=== PATIENT | female | born 1975 | race Caucasian/White ===

== ENCOUNTER 2023-12-11 06:32 | Observation (INO) ==
--- NOTE | 2023-11-16 13:58 | PAT Medication Instructions ---
Medication Instructions Date of Service November 16, 2023 Home Medications Medication Instructions Recorded lancets 33 gauge (OneTouch Delica #100 ea 05/12/22 Plus Lancet) blood sugar diagnostic (OneTouch #50 ea 05/15/22 Verio test strips) OneTouch Verio Reflect Start #1 ea 05/18/22 (blood-glucose meter) semaglutide 2 mg/dose (8 mg/3 mL) 2 mg (0.75 mL) subcut Q7D #3 mL 05/14/23 subcutaneous pen injector blood-glucose sensor (FreeStyle #2 ea 06/08/23 Natalia 3 Sensor device) Wheeled Walker #1 ea 08/03/23 metformin 500 mg tablet 1,000 mg PO BID atorvastatin 10 mg tablet 10 mg PO QPM meloxicam 15 mg tablet 15 mg PO QAM cyclobenzaprine 5 mg tablet 5 mg PO TID PRN semaglutide 2 mg/dose (8 mg/3 mL) subcutaneous pen injector 2 mg (0.75 mL) subcut Q7D acetaminophen 500 mg tablet 500 mg PO Q6H PRN diphenhydramine 25 mg-acetaminophen 500 mg tablet (Acetaminophen PM) 1 tab PO HS PRN ibuprofen 200 mg tablet 800 mg PO Q6H PRN multivitamin 1 tab PO QAM omeprazole 20 mg capsule,delayed release 20 mg PO DAILY PRN STOP 7 days before surgery semaglutide 2 mg/dose (8 mg/3 mL) subcutaneous pen injector 2 mg (0.75 mL) subcut Q7D Continue as directed omeprazole 20 mg capsule,delayed release 20 mg PO DAILY PRN(if needed) ASK your surgeon for instructions meloxicam 15 mg tablet 15 mg PO QAM ibuprofen 200 mg tablet 800 mg PO Q6H PRN DO NOT take the morning of surgery metformin 500 mg tablet 1,000 mg PO BID multivitamin 1 tab PO QAM Take morning of surgery With a small sip of water, OTHERWISE NOTHING TO EAT OR DRINK AFTER MIDNIGHT: cyclobenzaprine 5 mg tablet 5 mg PO TID PRN(if needed) acetaminophen 500 mg tablet 500 mg PO Q6H PRN(if needed) Take evening before surgery metformin 500 mg tablet 1,000 mg PO BID atorvastatin 10 mg tablet 10 mg PO QPM cyclobenzaprine 5 mg tablet 5 mg PO TID PRN(if needed) acetaminophen 500 mg tablet 500 mg PO Q6H PRN(if needed) diphenhydramine 25 mg-acetaminophen 500 mg tablet (Acetaminophen PM) 1 tab PO HS PRN(if needed) Other Notes If you have any questions please call us at [phone] or [phone] or [phone] or [phone]
--- NOTE | 2023-11-26 09:38 | Anesthesiology Consultation ---
Date of Service November 26, 2023 Assessment & Plan (1) Encounter for pre-operative examination: - check BSG STAT am DOS. - anesthesia concerns/history: Patient has concerns with potential neuraxial anesthesia due to above listed anesthesia concerns and chronic back pain. I listened to her concerns and discussed options of neuraxial vs general anesthesia. She plans to have final discussion with anesthesiologist am DOS. Case discussed with Dr. Condon who advised nothing additional is needed, final anesthesia plan will be to patient and assigned anesthesiologist discussion am DOS. - semaglutide instructions: Patient informed at PAT visit to stop 7 days prior to surgery- voiced understanding. Patient advised to check with prescriber to see if alternative diabetic management changes recommended while holding semaglutide-if so, patient to call back to [facility] to update chart and discuss if any further preop medication instructions needed. - Outpatient joint assessment: Patient is currently scheduled for inpatient pathway. If re-evaluated and patient/surgeon requests outpatient pathway, patient is not ideal candidate for outpatient joint program from anesthesia standpoint. Chart Review Chart Review: Acceptable Risk for Surgery and Patient seen in Pre Admission Testing Teaching & Discussion Pre-Anesthesia Teaching/Discussion Notes: Instructed NPO after midnight before surgery, except medications with 15 cc of water. Medication instructions provided according to the PAT guidelines. History Surgery Operation Date: 12/11/23 07:00 Proposed Procedures p Left Total Hip Arthroplasty - Branden Dial MD Height/Weight Height: 5 ft 9 in Weight: 93.6 kg Allergies Allergy/AdvReac Type Severity Reaction Status Date / Time seasonal Allergy Mild Nasal Uncoded 11/15/23 09:03 Discharge Medications Home Medications Medication Instructions Recorded Confirmed Last Taken metformin 500 mg tablet 1,000 mg PO BID 05/01/22 11/15/23 Unknown atorvastatin 10 mg tablet 10 mg PO QPM 05/10/22 11/15/23 Unknown meloxicam 15 mg tablet 15 mg PO QAM 05/10/22 11/15/23 Unknown cyclobenzaprine 5 mg tablet 5 mg PO TID PRN prn 05/12/22 11/15/23 Unknown lancets 33 gauge ([employer]tek NetworksTouch Delica #100 ea 05/12/22 09/21/23 Unknown Plus Lancet) blood sugar diagnostic ([employer]Touch #50 ea 05/15/22 09/21/23 Unknown Verio test strips) [employer] Verio Reflect Start #1 ea 05/18/22 09/21/23 Unknown (blood-glucose meter) semaglutide 2 mg/dose (8 mg/3 mL) 2 mg (0.75 mL) subcut Q7D #3 mL 05/14/23 11/15/23 Unknown subcutaneous pen injector blood-glucose sensor (FreeStyle #2 ea 06/08/23 09/21/23 Unknown Natalia 3 Sensor device) Wheeled Walker #1 ea 08/03/23 09/21/23 Unknown acetaminophen 500 mg tablet 500 mg PO Q6H PRN prn 11/15/23 11/15/23 Unknown diphenhydramine 25 1 tab PO HS PRN prn 11/15/23 11/15/23 Unknown mg-acetaminophen 500 mg tablet (Acetaminophen PM) ibuprofen 200 mg tablet 800 mg PO Q6H PRN prn 11/15/23 11/15/23 Unknown multivitamin 1 tab PO QAM 11/15/23 11/15/23 Unknown omeprazole 20 mg capsule,delayed 20 mg PO DAILY PRN prn 11/15/23 11/15/23 Unknown release Past Medical History Medical History (Updated 11/26/23 @ 13:50 by Era Arreola PA-C) Chronic low back pain stable per pt Diabetes mellitus, type II NIDDM GERD (gastroesophageal reflux disease) intermittent, stable per pt-omeprazole prn History of anesthesia reaction difficulty waking up after hand surgery in and sats low at that time; patient states that was told first attempt was not successful and medication entered body, second attempt was only beneficial on one side-O2 sats dropped needing to be placed in recovery unit; she is unsure if supplemental oxygen was administered Mixed hyperlipidemia Obesity (BMI 30.0-34.9) Unilateral primary osteoarthritis, left hip White coat syndrome with high blood pressure but without hypertension Patient denies h/o stroke, seizures, heart attack, heart failure, blood clots/DVTs or blood transfusions. Exercise / Class Metabolic Activity II 4-5 Yardwork/Stairs/Walk up hill (denies chest discomfort or shortness of breath with one flight of stairs) Past Family History Family History Father Melanoma Cirrhosis with alcoholism Mother Asthma Hypertension COPD (chronic obstructive pulmonary disease) Grandmother (Maternal) Breast cancer Alcoholism Grandmother (Paternal) Arthritis Grandfather (Paternal) Cancer Family/Other History of heart attack Past Surgical History Surgical History H/O section (~1999) History of endometrial ablation (~07/03/17) History of tubal ligation Past Anesthesia History No Family Hx of Anesthesia Complications and Other (see above) History of PONV No Hx of PONV and No Hx of Motion Sickness Social History Smoking Status: Never smoker Do You Dip or Chew Tobacco: No Hx Alcohol Use: Yes alcohol intake frequency: holidays/special occasions only Hx Substance Use: No substance use type: does not use Review of Systems Patient denies chest pain, shortness of breath, dyspnea on exertion, snoring, witnessed apneas, fever, chills, cough, wheezing, or palpitations. Physical Exam Vital Signs Vitals BP 137/92 P 86 TEMP 97.9 SP02 95% on RA RESP 18 Physical Patient resting comfortably in chair in no acute distress, alert and oriented, responding appropriately throughout visit Full cervical extension range of motion without pain TMD 3.5 finger breadths Mallampati Score 2 Dentition: left lower back crown, denies chipped or loose teeth, caps, implants or bridges Lungs: normal respiratory effort. Good air movement, clear throughout to auscultation, no adventitious breath sounds Cardiac: regular rate and rhythm, no murmurs noted Carotid arteries: negative bruit bilat Lab Results Anesthesia Preop Results Results Anesthesia Widget: WBC 6.85 K/ul (4.8-10.8) 11/26/23 Hgb 14.9 g/dl (12.0-16.0) 11/26/23 Hct 42.4 % (37.0-47.0) 11/26/23 Plt 209 K/uL (130-400) 11/26/23 Na 137 mmol/L (136-145) 11/26/23 K 4.1 mmol/L (3.5-5.1) 11/26/23 Cl 102 mmol/L (98-107) 11/26/23 CO2 27 mmol/L (21-32) 11/26/23 BUN 20 mg/dl (6-23) 11/26/23 Creat 0.57 mg/dl (0.6-1.2) L 11/26/23 Glucose Level 179 mg/dl (70-99(Fasting)) H 11/26/23 PT 10.5 Seconds (9.0-12.0) 11/26/23 PTT 28 Seconds (21-31) 11/26/23 INR 1.0 (0.9-1.1) 11/26/23 TSH 1.32 uIU/mL (0.30-4.50) 10/04/23 HA1c 7.4 % (4.5-5.6) H 11/26/23 Blood Type O Positive 11/26/23 Antibody Screen NEGATIVE 11/26/23 Testing Laboratory Results 10/04/23 A1c: 6.9% Electrocardiogram Date: 11/26/23 NSR, rate 82 bpm Poor R wave progression, consider anterior LA vs lead placement vs LVH Chest X-Ray Date: 11/26/23 No acute chest disease.
--- NOTE | 2023-11-28 13:39 | History & Physical Report ---
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 She has failed conservative measures. She is having trouble doing activities that she would like and would like to have her left hip fixed. Plan: We talked about it treatment options and she like proceed with a total hip replacement. Will proceed with hip replacement. There is cements this procedure explained in include but not limited to a DVT PE infection neurological injury vascular bleeding palm pain limb range of motion this is fairly her symptoms incomplete relief of symptoms need for further in the future excetra. We did discuss that her young age this might need to be revised in the future. She is aware that. Alli will keep her in the hospital overnight. Will likely use a Prevena VAC dressing. She will follow-up with us 2 weeks postop. (2) Diabetes mellitus type 2, controlled, without complications: (3) Obesity, diabetes, and hypertension syndrome: (4) Obesity (BMI 30.0-34.9): (5) Mixed hyperlipidemia: History of Present Illness Chief Complaint: . Left hip pain. Primary Care Provider: Nelson Cosme . 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 She has a 3+ year history of increasing left hip pain discomfort worsening over time. She was initially seen at [facility] several years ago and told she had arthritis in her back but not too bad. Over the past several years she developed increased pain discomfort. She is having trouble getting around and doing her shifts at the ER as well as her pain. She takes anti-inflammatories without much relief. She limps more as the day goes on. Scribes groin and thigh pain. She is ready to have her hip fixed. Of note, it does sound like she has some degree of a hip issue as a child but is not really clear on this. Has never any clear diagnosis. Allergies Allergy/AdvReac Type Severity Reaction Status Date / Time seasonal Allergy Mild Nasal Uncoded 11/15/23 09:03 Discharge Home Medications Medication Instructions Recorded Confirmed Type metformin 500 mg tablet 1,000 mg PO BID 05/01/22 11/15/23 History atorvastatin 10 mg tablet 10 mg PO QPM 05/10/22 11/15/23 History meloxicam 15 mg tablet 15 mg PO QAM 05/10/22 11/15/23 History cyclobenzaprine 5 mg tablet 5 mg PO TID PRN prn 05/12/22 11/15/23 History lancets 33 gauge (OneTouch Delica #100 ea 05/12/22 09/21/23 Rx Plus Lancet) blood sugar diagnostic (OneTouch #50 ea 05/15/22 09/21/23 Rx Verio test strips) OneTouch Verio Reflect Start #1 ea 05/18/22 09/21/23 Rx (blood-glucose meter) semaglutide 2 mg/dose (8 mg/3 mL) 2 mg (0.75 mL) subcut Q7D #3 mL 05/14/23 11/15/23 Rx subcutaneous pen injector blood-glucose sensor (FreeStyle #2 ea 06/08/23 09/21/23 Rx Natalia 3 Sensor device) Wheeled Walker #1 ea 08/03/23 09/21/23 Rx acetaminophen 500 mg tablet 500 mg PO Q6H PRN prn 11/15/23 11/15/23 History diphenhydramine 25 1 tab PO HS PRN prn 11/15/23 11/15/23 History mg-acetaminophen 500 mg tablet (Acetaminophen PM) ibuprofen 200 mg tablet 800 mg PO Q6H PRN prn 11/15/23 11/15/23 History multivitamin 1 tab PO QAM 11/15/23 11/15/23 History omeprazole 20 mg capsule,delayed 20 mg PO DAILY PRN prn 11/15/23 11/15/23 History release Past Med/Surg History Problem List Encounter for pre-operative examination Arthritis of left hip Diabetes mellitus type 2, controlled, without complications Obesity, diabetes, and hypertension syndrome Obesity (BMI 30.0-34.9) Mixed hyperlipidemia Medical History GERD (gastroesophageal reflux disease) intermittent, stable per pt-omeprazole prn White coat syndrome with high blood pressure but without hypertension Chronic low back pain stable per pt Obesity (BMI 30.0-34.9) History of anesthesia reaction difficulty waking up after hand surgery in and sats low at that time; patient states that was told first attempt was not successful and medication entered body, second attempt was only beneficial on one side-O2 sats dropped needing to be placed in recovery unit; she is unsure if supplemental oxygen was administered Mixed hyperlipidemia Diabetes mellitus, type II NIDDM Unilateral primary osteoarthritis, left hip Surgical History History of tubal ligation H/O section (~1999) History of endometrial ablation (~07/03/17) Family History Father Melanoma Cirrhosis with alcoholism Mother Asthma Hypertension COPD (chronic obstructive pulmonary disease) Grandmother (Maternal) Breast cancer Alcoholism Grandmother (Paternal) Arthritis Grandfather (Paternal) Cancer Family/Other History of heart attack Social History Smoking Status: Never smoker Second Hand Exposure: Yes (childhood); Do You Dip or Chew Tobacco: No; Hx Alcohol Use: Yes Alcohol Intake Frequency Comment: Rarely Hx Substance Use: No Preferred Language: Yakut Throat Cutter Required: No Beliefs That Will Affect Care: None Current Living Situation: Spouse Feels Safe at Home: Yes Assistive Devices: Contacts and Glasses Review of Systems All systems reviewed & are unremarkable except as noted in HPI & below. Physical Exam . Physical examination reveals a pleasant healthy middle-aged female. Looks in pretty good health. Examination of left hip reveal patient walks with slightly antalgic gait. She limps on the left side. The left leg actually seems a bit longer than the right on exam. She has stiffness and pain with hip motion. Internal rotation to neutral at best. Negative straight leg raise. She is neurologically intact. Constitutional WD/WN, vitals as above Neck trachea midline, no thyromegaly Respiratory normal respiratory effort, lungs clear to auscultation Cardiovascular RRR, no murmur, no edema Gastrointestinal (Abdomen) normal bowel sounds, soft, nontender, no hepatosplenomegaly Results & Data Results & Data Laboratory Results . Diagnostic Findings . X-rays of the left hip were reviewed. We have a low would be pelvis AP and lateral hip which reveal advanced hip arthritis. She had complete loss of her superior joint space. She is got cystic changes on both sides of the joint. Got osteophytes around the femoral head and acetabulum. 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
[~2023-12-11 06:32] MED LIST: BUPIVACAINE 0.5 % 5 MG/1 ML PF 10ML VIAL ONE
--- NOTE | 2023-12-11 06:50 | History & Physical Bridge Note ---
Date of Service December 11, 2023 History & Physical Bridge Note I have examined the patient, reviewed the History & Physical and in the interval since the performance of the History & Physical I have noted the following changes of clinical significance: no changes noted
[2023-12-11] MEDS: ACETAMINOPHEN 500 MG TAB PO SCH ×2 (06:56→13:52)
[2023-12-11] MEDS: METOCLOPRAMIDE HCL 10 MG TABLET PO SCH (06:56)
[2023-12-11] MEDS: FAMOTIDINE 20 MG TAB PO SCH (06:56)
[2023-12-11] MEDS: LR 60ML/HR IV SCH (06:57)
[2023-12-11] MEDS: Scopolamine 1 MG TDSY TD SCH (06:57)
[2023-12-11] MEDS: CeleBREX 200 MG CAP PO SCH (06:57)
[2023-12-11] MEDS: LR 500ML BOLUS, THEN 15ML/HR IV SCH (07:36)
[2023-12-11] MEDS ORDERED: ONDANSETRON INJ 2 MG/ML 2 ML VIAL IV PRN ×2 (07:57→11:48)
[2023-12-11] MEDS ORDERED: ePHEDrine sulfate 50 MG/ML AMP IV PRN (07:57)
[2023-12-11] MEDS ORDERED: ATROPINE SULFATE 0.1 MG/ML 10ML SYR IV PRN (07:57)
[2023-12-11] MEDS ORDERED: fentaNYL citrate PF 100 MCG/2 ML VIAL IV PRN (07:57)
[2023-12-11] MEDS ORDERED: PROMETHAZINE HCL 6.25 MG in SODIUM CHLORIDE 0.9% 50 ML IV PRN (07:57)
[2023-12-11] MEDS ORDERED: MIDAZOLAM HCL 1 MG/ML 2ML VIAL ONE (08:00)
[2023-12-11] MEDS ORDERED: fentaNYL citrate PF 100 MCG/2 ML VIAL ONE (08:01)
[2023-12-11] MEDS: TRANEXAMIC ACID 1,000 MG **IV Pre-op IV SCH (08:17)
[2023-12-11] MEDS: ceFAZolin 2000MG 2,000 MG/15 ML SYR IV SCH ×2 (08:42→17:23)
[2023-12-11] MEDS: BUPIVACAINE/EPINEPHRINE 0.5% MPF 1:200,000 30 ML VIAL ONE (09:10)
[2023-12-11] MEDS ORDERED: PROPOFOL IV EMULSION 10 MG/ML 20 ML VIAL IV ONE (09:52)
[2023-12-11] MEDS ORDERED: ONDANSETRON INJ 2 MG/ML 2 ML VIAL ONE (09:52)
--- NOTE | 2023-12-11 10:25 | Operative Report ---
PG Post Operative Report Pre & Post Diagnosis Operation Date: 12/11/23 08:50 Pre-Op Diagnosis: DJD Hip Left Post-Op Diagnosis: DJD Hip Left I identified the patient and participated in the time-out.: Yes Procedure Operation Date: 12/11/23 08:50 Actual Procedures p Left Total Hip Arthroplasty(Left) - Branden Dial MD Surgeon Branden Dial MD Operations Officer Afloat Adolfo Andujar PA-C Estimated Blood Loss 100 Findings Consistent with Post-Op Diagnosis Operative findings advanced left hip DJD. Extensive grade 4 [id number] disease of the femoral head and acetabulum. She did have a bit of a dysplastic acetabulum. Large osteophyte around the femoral head. Moderate-sized joint effusion. Specimens Left femoral neck sent for pathology. Drains None Anesthesia Type Spinal MAC Complications none Disposition Accompanied Patient To Recovery: No Indications The patient is a 48-year-old female whose had a several year history of increasing left hip pain discomfort described to gotten worse over time. She failed all conservative measures. X-rays show advanced left hip arthritis. She elects proceed with surgical management. Description of Procedure Operative implants consist of: 1. Biomet G7 size 52 mm acetabular shell. 2. 6.5 cancellous acetabular screws 135 mm length by 20 mm length. 3. [place]wood: Millimeter. 4. Highly cross-linked polyethylene liner with a 52 mm outer diameter 36 mm inner diameter. 5. DePuy Corail size 9 KLA femoral stem. 6. +5/36 mm ceramic articular bone. The patient was taken the operating, identified, placed on the operating supine position. All contractors were appropriately padded. IV antibiotics provided by anesthesia team. A spinal anesthetic was implemented holding area. A Perry catheter was placed in sterile fashion. The patient was then placed in the right lateral decubitus position. Neck flexion was placed. This over to positioner was used for positioning. Left hip and leg were then prepped and draped in usual sterile fashion. A posterolateral approach to the left hip was then performed to a curvilinear incision centered over the greater trochanter. Sharp dissection Through subcutaneous tissue down to the IT band gluteal fascia. The IT band gluteal fascia incised longitudinally in line with skin incision. The underlying greater bursa was excised. The piriformis and external rotators along with the posterior joint capsule were then released from the posterior aspect hip as a single layer. Great care was taken throughout the sciatic nerve at all times. Of note, the posterior capsule was extremely thickened. The hip was internally rotated and dislocated. A femoral neck osteotomy cut was made with Final Cut about 7 mm above the lesser trochanter. Femoral head was removed and sent for pathology. The femur was retracted anteriorly. Attention drawn the acetabulum. The acetabular labrum was excised. The pulmonary fat was excised. Sequential reaming the acetabulum then performed with a size 43 and progressing up to 51. I reamed with a 52 reamer and then placed a 52 mm Biomet G7 acetabular shell in about 4 degree lateral 20 degrees of anteversion. It was fixed with two 6.5 cancellous acetabular screws. Trial liner was placed. Attention drawn the femur. The proximal femur was entered with a OptionEase cutter followed by canal finder. I then broached between a size 8 and progressed to a 9. Excellent candidate and 9. I did not detect a 5010 down to the trial of the hip and the +5 articular balls provide portability. Leg lengths appeared equal. The hip was fully stable. Soft tissue tension appeared appropriate. Electroplating explained. All trial implants were removed. An apex hole transition assistant was placed. Highly c linically polyethylene liner was placed. The size 9 KLA femoral stem was impacted in position. +5/36 mm ceramic articular ball was placed. Hip was located once again found to be stable. We elected to proceed with closing. Wound was irrigated copious pulsatile lavage. I did inject into the 60 cc Marcaine with epinephrine. Posterior capsule and external rotators number. The drill was in the posterior trochanter with #2 Tycron suture. The IT band and gluteal fascia then closed with 1 PDS suture running back to subcutaneous tissue then closed with 2-0 Dexon suture in a buried interrupted fashion the skin was closed skin alexys. Leg was then cleaned and dried and sterile dressing with Xeroform, 4 fours, ABD pad, foam tape was applied. Patient transferred to the recovery in stable condition. Patient tolerated procedure well and there were no complications. Adolfo Andujar, my physician supply chain assistant, was present for the entire procedure. His assistance was essential and required for appropriate patient positioning, prepping and draping, surgical exposure, performing the technical details of the operation, placement the implants, closure of the wound, and placement of the sterile bandage. I attest to the content of the Intraoperative Record and any orders documented therein. Any exceptions are noted below.
[2023-12-11] MEDS ORDERED: MAGNESIUM HYDROXIDE SUSP 30 ML UDC PO PRN (11:48)
[2023-12-11] MEDS ORDERED: GLUCAGON FOR INJ 1 MG VIAL SQ PRN (11:48)
[2023-12-11] MEDS ORDERED: GLUCOSE 40% GEL 15 GM TUBE PO PRN (11:48)
[2023-12-11] MEDS ORDERED: CARBOHYDRATES FOR HYPOGLYCEMIA PO PRN (11:48)
[2023-12-11] MEDS ORDERED: HYDROmorphone INJ 0.5 MG/0.5 ML SYR IV PRN (11:48)
[2023-12-11] MEDS ORDERED: bisacodyL 10 MG SUPP PR PRN (11:48)
[2023-12-11] MEDS ORDERED: PHARMACY GLYCEMIC MGMT CONSULT PRN (11:48)
[2023-12-11] MEDS ORDERED: GLUCOSE 10 TAB/TUBE PO PRN (11:48)
[2023-12-11] MEDS ORDERED: NALOXONE HCL 0.4 MG/1 ML VIAL/CARP IV PRN (11:48)
[2023-12-11] MEDS ORDERED: ALUMINUM/MAGNESIUM SUSP 30 ML UDC PO PRN (11:48)
[2023-12-11] MEDS ORDERED: diphenhydrAMINE Capsule 25 MG CAP PO PRN (11:48)
[2023-12-11] MEDS ORDERED: DEXTROSE 50% 50 ML SYRINGE IV PRN (11:48)
[2023-12-11] MEDS ORDERED: METOCLOPRAMIDE HCL INJ 5 MG/ML 2 ML VIAL IV PRN (11:48)
[2023-12-11] MEDS ORDERED: SENNA 8.6 MG TAB PO PRN (11:48)
[2023-12-11] MEDS ORDERED: PANTOprazole 40 MG TAB PO PRN (11:53)
[2023-12-11] MEDS: SODIUM CHLORIDE 0.9% 1,000 ML IV SCH (12:04)
[2023-12-11] MEDS: KETOROLAC 30 MG/ML VIAL IV SCH (12:12)
--- NOTE | 2023-12-11 12:29 | Pharmacy Report ---
Pharmacy Glycemic Short Note 2 - Date of Service December 11, 2023 - Glycemic Short BSG Results (Last 24 hours): 12/11/23 12/11/23 12/11/23 07:01 10:12 12:12 POC Glucose 173 H 208 H 160 H OUTPATIENT ANTIDIABETIC REGIMEN: * metformin 1 gm bid ASSESSMENT: * 48 year old female s/p procedure, POD 0 - pharmacy consulted for glycemic management. Postop BSG 160 mg/dL - will trial weight based stress of 2 dosing for novolog. No steroids given preoperatively, however steroids ordered for tomorrow AM. May need to consider small dose of basal tomorrow with steroids. PLAN FOR INPATIENT GLYCEMIC CONTROL: * Hold outpatient oral diabetes medications * Basal insulin * Lantus - hold * Bolus insulin * NovoLog per scale ACHS or Q6hrs while NPO * Goal Range: Low 110 mg/dL - High 140 mg/dL * Correction Factor: 25 mg/dL/unit * Nutritional / Prandial insulin per carb ratio of 1 unit per 8 grams CHO consumed
[2023-12-11] MEDS: INSULIN ASPART PER UNIT CHARGE SC SCH (13:02)
--- NOTE | 2023-12-11 13:42 | Anesthesiology Progress Note ---
Date of Service December 11, 2023 Anesthesia Post Procedure Vital Signs Vital Signs: Temp Pulse Pulse Resp BP BP Pulse Ox 12/11/23 13:00 36.0 C L 81 16 159/100 H 98 12/11/23 12:15 36.3 C L 73 15 149/98 H 98 12/11/23 11:52 36.4 C L 80 16 160/90 H 100 12/11/23 11:35 75 16 134/80 98 12/11/23 11:20 70 16 138/80 97 12/11/23 11:05 76 17 130/76 97 12/11/23 10:50 74 16 128/78 98 12/11/23 10:40 36.4 C L 78 14 128/78 98 12/11/23 10:30 80 22 115/69 100 12/11/23 10:20 83 19 119/68 100 12/11/23 10:11 36.5 C 88 17 104/60 100 12/11/23 06:54 36.6 C 92 H 20 157/97 H 98 O2 Del Method O2 Flow Rate 12/11/23 13:00 Room Air 12/11/23 12:15 Room Air 12/11/23 11:52 Room Air 12/11/23 11:35 Room Air 12/11/23 11:20 Room Air 12/11/23 11:05 Room Air 12/11/23 10:50 Room Air 12/11/23 10:40 Room Air 12/11/23 10:30 Oxymask 5 12/11/23 10:20 Oxymask 5 12/11/23 10:11 Oxymask 5 12/11/23 06:54 Room Air Transfer of Care Handoff Completed per policy Notes Mental Status: alert / awake / arousable and participated in evaluation Patient Amnestic to Procedure: Yes Nausea / Vomiting: adequately controlled Pain: adequately controlled Airway Patency, RR, SpO2: stable & adequate BP & HR: stable & adequate Hydration State: stable & adequate Neuraxial Anesthesia: was administered and sensory block is resolving Anesthetic Complications: no major complications apparent and Pt Satisfied with anesthetic care
[2023-12-11] MEDS ORDERED: ACETAMINOPHEN 500 MG TAB PO SCH (14:00)
[2023-12-11] MEDS: Scopolamine CHECK PATCH PLACEMENT SCH (17:17)
[2023-12-11] MEDS: TRANEXAMIC ACID / 0.7% NACL 1,000 MG/100 ML BAG IV SCH (17:28)
[2023-12-11] MEDS: ASCORBIC ACID 500 MG TAB PO SCH (18:24)
[2023-12-11] MEDS: SENNA 8.6 MG TAB PO SCH (20:20)
[2023-12-11] MEDS: DOCUSATE SODIUM 100 MG CAP PO SCH (20:20)
[2023-12-11] MEDS: ATORVASTATIN 10 MG TAB PO SCH (20:21)
[2023-12-11] MEDS: ASPIRIN 81 MG ECTAB PO SCH (20:21)
[2023-12-11] MEDS: traMADol HCL 50 MG TABLET PO PRN (22:32)
[2023-12-11] MEDS: CYCLOBENZAPRINE HCL 5 MG TAB PO PRN (22:33)
[2023-12-12 06:45] LABS: Basophils # (auto) 0.03 K/uL (0.00-0.20); Basophils % (auto) 0.4 %; Eosinophils # (auto) 0.08 K/uL (0.00-0.50); Hematocrit (blood only) 27.8 % (37.0-47.0); Hemoglobin 9.5 g/dl (12.0-16.0); Immature Granulocytes # (auto) 0.02 K/uL (0.01-0.20); Immature Granulocytes % (auto) 0.2 %; Lymphocytes # (auto) 3.14 K/uL (1.20-3.40); Lymphocytes % (auto) 39.2 %; Mean Corpuscular Hemoglobin 28.6 pg (25.0-34.0); Mean Corpuscular Hgb Conc 34.2 g/dL (32.0-36.0); Mean Corpuscular Volume 83.7 fL (80.0-100.0); Mean Platelet Volume 10.8 fL (9.4-12.4); Monocytes # (auto) 0.59 K/uL (0.11-0.59); Monocytes % (auto) 7.4 %; Neutrophils # (auto) 4.16 K/uL (1.40-6.50); Neutrophils % (auto) 51.8 %; Platelet Count 167 K/uL (130-400); RDW Coefficient of Variation 12.5 % (11.5-14.5); RDW Standard Deviation 38.3 fL (36.4-46.3); Red Blood Count 3.32 M/uL (4.20-5.40); White Blood Count 8.02 K/ul (4.8-10.8)
[2023-12-12 07:08] LABS: BUN Creatinine Ratio 30.2 (10-20); Calcium 7.9 mg/dl (8.6-10.3); Creatinine Clr Calc Pharmacy 161.2 ml/min; Est GFR (Non-African American) 113.9 ml/min; Potassium 3.7 mmol/L (3.5-5.1)
[2023-12-12 07:57] VITALS: BP 118/76; PULSE 86; RESP 19; TEMP 98.4; O2SAT 96
[2023-12-12] MEDS: dexAMETHasone 10 MG in SYRINGE 0 ML IV SCH (07:59)
[2023-12-12] MEDS: MULTIVITAMIN TAB PO SCH (08:12)
[2023-12-12] MEDS ORDERED: NON-FORMULARY MEDICATION (Multivitamin Tablet) PO SCH (09:00)
--- NOTE | 2023-12-12 11:56 | XRay Report ---
XR hip 1V LT w pelvis CLINICAL HISTORY: IN PACU - Post Surgical TECHNIQUE: 1 view of the left hip and single frontal view of the pelvis were obtained. Comparison: Comparison is made to left hip radiograph 08/03/2023 FINDINGS: Patient is status post total hip arthroplasty with expected postsurgical changes including soft tissu e swelling and subcutaneous emphysema. IMPRESSION: Expected postoperative appearance status post placement of total hip arthroplasty. ACT 112: Negative or not required by law. Electronically signed by: Colin Sparks M.D. 12/12/2023 11:55 AM
[2023-12-12] MEDS ORDERED: NovoLIN-N (NPH) PER UNIT CHARGE SQ ONE (12:00)
--- NOTE | 2023-12-12 12:06 | Orthopedic Progress Note ---
Date of Service December 12, 2023 Assessment & Plan (1) Status post left hip replacement: Plan: 48-year-old female postop day 1 from left hip replacement doing well. Pain is controlled. Hips located. She is neurologically intact. Therapy went well. Plan: 1. PT/OT. Weight-bear as tolerated. Left total hip protocol. 2. DVT prophylaxis;, SCDs, aspirin twice daily. 3. Pain control doing okay with current pain regimen. 4 disposition plan is to discharge to home with home health today. Admission and Anticipated Discharge Date Admission Date: December 11, 2023 Subjective 48-year-old female postop day 1 from a left total hip she is doing well. Therapy went well. Pain is controlled. No chest pain or shortness of breath. Not feeling dizzy or lightheaded. She is hoping to go home today. Physical Exam Physical Exam: Physical exam shows a pleasant middle-aged female. Sitting up in the bedside chair looks comfortable. Examination left hip reveals dressing clean dry and intact. Leg lengths are equal. She can dorsiflex the foot appropriately. She is neurologically intact. Respiratory: normal respiratory effort, lungs clear to auscultation Cardiovascular: RRR, no murmur, no edema Gastrointestinal (Abdomen): normal bowel sounds, soft, nontender, no hepatosplenomegaly Results & Data Vital Signs (Past 12 Hours) Vital Signs Temp Pulse Pulse Resp BP BP Pulse Ox 12/12/23 09:12 12/12/23 07:55 36.9 C 86 19 118/76 96 12/12/23 03:00 36.4 C L 84 18 123/67 97 O2 Del Method 12/12/23 09:12 Room Air 12/12/23 07:55 Room Air 12/12/23 03:00 Room Air Laboratory Results Hemoglobin is 9.5. Hematocrit is 27.8. Electrolytes are stable.
--- NOTE | 2023-12-12 12:11 | Pharmacy Report ---
Pharmacy Glycemic Short Note 2 - Date of Service December 12, 2023 - Glycemic Short BSG Results (Last 24 hours): 12/11/23 12/11/23 12/11/23 12:12 16:35 20:48 Glucose POC Glucose 160 H 136 H 274 H 12/11/23 12/12/23 12/12/23 23:23 06:14 07:36 Glucose 146 H POC Glucose 234 H 165 H 12/12/23 11:29 Glucose POC Glucose 233 H OUTPATIENT ANTIDIABETIC REGIMEN: * metformin 1 gm bid ASSESSMENT: 12/11 * Patient did not receive any insulin yesterday, outside food brought in therefore BSGs elevated last evening. Patient refused insulin at that time. Steroids ordered for this AM (dexamethasone x 1 dose). BSGs trending up at lunch time >200 - reasonable to give NPH 0.2 units/kg x 1 dose to cover steroid effects. Novolog also tightened at this time 12/10 * 48 year old female s/p procedure, POD 0 - pharmacy consulted for glycemic management. Postop BSG 160 mg/dL - will trial weight based stress of 2 dosing for novolog. No steroids given preoperatively, however steroids ordered for tomorrow AM. May need to consider small dose of basal tomorrow with steroids. PLAN FOR INPATIENT GLYCEMIC CONTROL: * Hold outpatient oral diabetes medications * Basal insulin * NPH 15 units x 1 (to cover IV dex) * Bolus insulin * NovoLog per scale ACHS or Q6hrs while NPO * Goal Range: Low 110 mg/dL - High 140 mg/dL * Correction Factor: 20 mg/dL/unit * Nutritional / Prandial insulin per carb ratio of 1 unit per 6 grams CHO consumed
--- NOTE | 2023-12-14 06:28 | Discharge Summary ---
Date of Service December 14, 2023 Discharge Data Procedures Performed Operation Date: 12/11/23 08:50 Actual Procedures p Left Total Hip Arthroplasty(Left) - Branden Dial MD Hospital Course (1) Status post left hip replacement: This is a 48 year old patient admitted on 12/11/23 and underwent total hip arthroplasty. She tolerated the procedure well and there were no complications. Transferred to the PACU post op and later to the orthopedic floor for further care. She was given ancef for antibiotic prophylaxis. She was also given BELL stockings, SCDs, and aspirin for DVT prophylaxis. Hemoglobin, hematocrit, and vital signs were monitored during her hospital stay and remained stable. Did not require any blood transfusions. There were no complications during her hospital stay. By post op day #1 the patient was tolerating a diabetic diet, pain was reasonably controlled with oral pain medicine, and she was participating in physical therapy. On post op day #1 the patient was discharged home and set up with home health care. She was given printed discharge instructions including prescriptions for extra strength tylenol, aspirin, ketorolac, zofran, senokot, and tramadol. Continue hip precautions. Continue physical therapy, weight bearing as tolerated. Continue BELL stockings. Follow up approximately 2 weeks post op or sooner if there are problems or concerns. Coding Level of Care Code None Diagnoses Status post left hip replacement Z96.642
== END 2023-12-12 13:37 | disposition home health service (06) ==
LOC: PACUINP 06:32 → ASU 06:32 → 3E 11:41
DX: Z79.82 Long term (current) use of aspirin; Z77.22 Contact with and (suspected) exposure to environmental tobacco smoke (acute) (chronic); M25.452 Effusion, left hip; I15.2 Hypertension secondary to endocrine disorders; Z91.09 Other allergy status, other than to drugs and biological substances; M16.12 Unilateral primary osteoarthritis, left hip; E11.59 Type 2 diabetes mellitus with other circulatory complications; Z79.1 Long term (current) use of non-steroidal anti-inflammatories (NSAID); Z79.85 Long-term (current) use of injectable non-insulin antidiabetic drugs; E78.2 Mixed hyperlipidemia; Z79.899 Other long term (current) drug therapy; K21.9 Gastro-esophageal reflux disease without esophagitis; Z79.84 Long term (current) use of oral hypoglycemic drugs; E66.9 Obesity, unspecified; Z68.30 Body mass index [BMI] 30.0-30.9, adult; M25.752 Osteophyte, left hip; E11.69 Type 2 diabetes mellitus with other specified complication

== ENCOUNTER 2024-01-22 19:21 | Inpatient (IN) ==
[2024-01-22] MEDS: ONDANSETRON INJ 2 MG/ML 2 ML VIAL IV STA ×2 (19:41→22:10)
[2024-01-22] MEDS: KETOROLAC TROMETHAMINE 15 MG/ML VIAL ONE (19:41)
[2024-01-22] MEDS: ONDANSETRON INJ 2 MG/ML 2 ML VIAL ONE (19:41)
[2024-01-22] MEDS: KETOROLAC TROMETHAMINE 15 MG/ML VIAL IV ONE (19:41)
[2024-01-22 20:08] LABS: Basophils % (auto) 0.6 %; Eosinophils # (auto) 0.33 K/uL (0.00-0.50); Eosinophils % (auto) 1.9 %; Hematocrit (blood only) 43.3 % (37.0-47.0); Hemoglobin 13.8 g/dl (12.0-16.0); Immature Granulocytes # (auto) 0.07 K/uL (0.01-0.20); Immature Granulocytes % (auto) 0.4 %; Lymphocytes % (auto) 24.2 %; Mean Corpuscular Hemoglobin 27.8 pg (25.0-34.0); Mean Corpuscular Hgb Conc 31.9 g/dL (32.0-36.0); Mean Corpuscular Volume 87.3 fL (80.0-100.0); Mean Platelet Volume 10.2 fL (9.4-12.4); Monocytes # (auto) 1.06 K/uL (0.11-0.59); Monocytes % (auto) 6.1 %; Neutrophils # (auto) 11.61 K/uL (1.40-6.50); Neutrophils % (auto) 66.8 %; Platelet Count 266 K/uL (130-400); RDW Standard Deviation 44.9 fL (36.4-46.3); Red Blood Count 4.96 M/uL (4.20-5.40); White Blood Count 17.37 K/ul (4.8-10.8)
[2024-01-22 20:20] LABS: Albumin Globulin Ratio 1.7 (0.9-2); Albumin Level 4.6 gm/dl (3.4-5.0); BUN Creatinine Ratio 20.5 (10-20); Bilirubin,Total 0.5 mg/dl (0.2-1.0); Calcium 9.8 mg/dl (8.6-10.3); Creatinine Clr Calc Pharmacy 103.8 ml/min; Globulin 2.7 gm/dl (2.5-4.0); Magnesium 1.5 mg/dl (1.7-2.4); Potassium 3.7 mmol/L (3.5-5.1); Total Protein 7.3 gm/dl (6.0-8.3)
[2024-01-22 20:33] LABS: INR 0.9 (0.9-1.1); Partial Thromboplastin Time 26 Seconds (21-31); Prothrombin Time 10.3 Seconds (9.0-12.0)
[2024-01-22 20:40] LABS: Appearance Urine Cloudy (Clear); Bacteria Urine Automated None Seen (None Seen); Bilirubin Urine Negative (Negative); Blood Urine 3+ (Negative); Cast Urine Automated 0-2 /lpf (0-2); Color Urine Orange; Epithelial Cell Urine Auto 0-2 /hpf (0-2); Glucose Urine UA Trace (Negative); Ketones Urine Trace (Negative); Leukocyte Esterase Urine 1+ (Negative); Nitrite Urine Negative (Negative); Protein Urine 1+ (Negative); RBC Urine Automated >20 /hpf (0-2); Urobilinogen Urine Negative (Negative); pH Urine 5.5 (4.5-7.5)
--- NOTE | 2024-01-22 21:01 | CT Scan Report ---
Exam(s): CT ABDOMEN + PELVIS Without Contrast EXAM: CT Abdomen and Pelvis Without Intravenous Contrast CLINICAL HISTORY: Reason for exam: right flank pain. TECHNIQUE: Axial computed tomography images of the abdomen and pelvis without intravenous contrast. CTDI is 27.54 mGy and DLP is 1392.63 mGy-cm. Automated exposure control was utilized for the study. A dose lowering technique was utilized adhering to the principles of ALARA. COMPARISON: None FINDINGS: Lung bases: Unremarkable. No mass. No consolidation. ABDOMEN: Liver: Unremarkable. Gallbladder and bile ducts: Unremarkable. No calcified stones. No ductal dilation. Pancreas: Unremarkable. No ductal dilation. Spleen: Unremarkable. No splenomegaly. Adrenals: Unremarkable. No mass. Kidneys and ureters: 3 mm stone in the distal right ureter. Mild right hydroureteronephrosis. Prominent right perinephric fat stranding. Additional right renal stones. 1.3 cm stone in the proximal left ureter. Mild left hydronephrosis. Small left renal stone. Stomach and bowel: Evaluation of the stomach is limited by underdistention. No mucosal thickening. No bowel obstruction or inflammation. PELVIS: Appendix: Normal appendix. Bladder: Underdistended bladder limits evaluation. No stones. Reproductive: Unremarkable as visualized. ABDOMEN and PELVIS: Intraperitoneal space: Unremarkable. No free air. No significant fluid collection. Bones/joints: Left hip arthroplasty causes streak artifact that limits evaluation of portions of the pelvis. Degenerative changes of the spine. No acute fracture. No dislocation. Soft tissues: Unremarkable. Vasculature: Unremarkable. No abdominal aortic aneurysm. Lymph nodes: Unremarkable. No enlarged lymph nodes. IMPRESSION: 1. 3 mm stone in the distal right ureter. Mild right hydroureteronephrosis. Prominent right perinephric fat stranding. Additional right renal stones. 2. 1.3 cm stone in the proximal left ureter. Mild left hydronephrosis. Small left renal stone. Electronically signed by: Di Cary M.D. 01/22/24 21:01 PM
[2024-01-22] MEDS: ACETAMINOPHEN 1,000 MG/100 ML VIAL IV STA (21:07)
[2024-01-22] MEDS: SODIUM CHLORIDE 0.9% 1,000 ML IV ONE (21:50)
[2024-01-22] MEDS: cefTRIAXone SODIUM 2,000 MG/50 ML BAG IV STA (21:51)
[2024-01-22] MEDS: MoRPHine SULFATE 4 MG/ML 1 ML CARP\\VIAL IV PRN (22:10)
--- NOTE | 2024-01-23 01:07 | Emergency Department Note ---
Impression & Plan Abdominal wall pain in right flank, Calculus of both ureters, Leukocytosis ED Provider Note CHIEF COMPLAINT: Right flank pain HISTORY OF PRESENT ILLNESS: This 48-year-old female patient presents to the emergency department via private vehicle for evaluation of right flank pain. The patient is 6 weeks status post left hip replacement surgery. She denies any complications or difficulty with the surgery. She was seen and cleared by her orthopedic surgeon and return to the gym today. She states that while she was working out, she noticed some right flank pain which felt consistent with a kidney stone she has had in the past. The patient states that the pain does radiate around her right side. She has had urinary frequency and hesitancy but no dysuria. No fever, chills, upper abdominal pain. The patient has not taken any OTC medications for her symptoms. She has had nausea and vomiting while in route to the emergency department. Patient denies any trauma or injury to the area. History provided by: Patient REVIEW OF SYSTEMS: A 10 system review of systems was performed with positives and pertinent negatives listed in the history of present illness. All other systems were reviewed and are negative. ALLERGIES: NKDA PHYSICAL EXAM: VITALS: Vitals are noted on the nurse's note and reviewed by myself. GENERAL: This is a 48-year-old female, in no acute distress, nondiaphoretic, well-developed well-nourished. SKIN: The skin was without rashes, erythema, edema, or bruising. There is no tenting of the skin. Capillary refill less than 2 seconds. HEAD: Normocephalic atraumatic. EYES: Conjunctivae without injection, sclerae without icterus. NECK: Supple without nuchal rigidity. No lymphadenopathy. Cervical spine is nontender. No JVD. HEART: Regular rate and rhythm without murmurs gallops or rubs. LUNGS: Clear to auscultation bilaterally without wheezes, rales or rhonchi. No retractions or accessory muscle use. ABDOMEN: Positive bowel sounds x 4. Soft, nontender, without masses or organomegaly. Linares sign negative. No guarding or rebound tenderness. MUSCULOSKELETAL: No muscle atrophy, erythema, or edema noted. Full range of motion without joint tenderness in all extremities. No tenderness to palpation. Normal gait. Strength 5/5 throughout. NEURO: Patient was alert and oriented to person place and time. No focal neurological deficits. An order was placed for continuous engine monitor. The monitor showed a normal sinus rhythm at a ventricular rate of 81 bpm, per my interpretation. Imaging as interpreted by myself and the radiologist revealed a 3 mm distal right ureteral stone with hydroureteronephrosis and prominent right perinephric fat stranding as well as a 1.3 cm stone in the proximal left ureter with mild left hydronephrosis, with radiologist interpretation as above. I agree with the radiologist's findings as based upon my independent interpretation. EMERGENCY DEPARTMENT COURSE: The patient was seen and evaluated as above. The patient presents for concern for a possible right sided kidney stone. IV access was obtained, labs were drawn. Patient was medicated with IV Toradol. CT imaging was completed and reviewed by myself radiologist as above. There is a 3 mm distal right ureteral stone with hydroureteronephrosis and prominent right perinephric fat stranding. There is also note of a 1.3 cm stone in the proximal left ureter with mild left hydronephrosis. Labs reviewed. Labs were concerning for leukocytosis of 17,000. No anemia or thrombocytopenia. Renal, hepatic function and electrolytes without significant abnormality. Lipase 29. INR 0.9. Urinalysis positive for 3+ blood, 1+ leukocyte esterase, 11-20,000 epithelial cells And trace glucose. I discussed findings with the patient at bedside. Patient was medicated with IV acetaminophen and repeat dose of Zofran she was hydrated with IV fluids. Did recommend admission given the leukocytosis and bilateral stones. Patient was agreeable. Case was discussed with the attending physician. I discussed case with the manpower development specialist manager. I discussed the case with Dr. Miller, [facility]ist physician. Please see his dictation regarding ongoing management care of this patient. This visit is during a period of high volume and high acuity in the emergency department. I attest that I have personally reviewed the patient medication list. I attest that I have reviewed the patient's blood pressure and it was found to be elevated. Referred to hospitalist for further management. GCS: 15 In the evaluation and treatment of this patient the following differential diagnoses were entertained: Renal colic, UTI, appendicitis, diverticulitis, mesenteric ischemia, aortic pathology, infections, inflammatory bowel disease, PUD, biliary pathology, as well as other pathologies. The chart was completed utilizing [employer] voice recognition software. Grammatical errors, random word insertions, pronoun errors, and incomplete sentences are an occasional consequence of this system due to software limitations, ambient noise, and hardware issues. Any formal questions or concerns about the content, text, or information contained within the body of this dictation should be directly addressed to the provider for clarification. Past Med/Surg History Problem List (Updated 01/23/24 @ 01:07 by Aida Escalera PA-C) Leukocytosis (Acute) Calculus of both ureters (Acute) Abdominal wall pain in right flank (Acute) Status post left hip replacement Diabetes mellitus type 2, controlled, without complications Obesity, diabetes, and hypertension syndrome Obesity (BMI 30.0-34.9) Mixed hyperlipidemia Medical History Encounter for pre-operative examination Arthritis of left hip GERD (gastroesophageal reflux disease) intermittent, stable per pt-omeprazole prn White coat syndrome with high blood pressure but without hypertension Chronic low back pain stable per pt Obesity (BMI 30.0-34.9) History of anesthesia reaction difficulty waking up after hand surgery in and sats low at that time; patient states that was told first attempt was not successful and medication entered body, second attempt was only beneficial on one side-O2 sats dropped needing to be placed in recovery unit; she is unsure if supplemental oxygen was administered Mixed hyperlipidemia Diabetes mellitus, type II NIDDM Unilateral primary osteoarthritis, left hip Surgical History History of tubal ligation H/O section (~1999) History of endometrial ablation (~07/03/17) Family History Father Melanoma Cirrhosis with alcoholism Mother Asthma Hypertension COPD (chronic obstructive pulmonary disease) Grandmother (Maternal) Breast cancer Alcoholism Grandmother (Paternal) Arthritis Grandfather (Paternal) Cancer Family/Other History of heart attack Social History Smoking Status: Never smoker Second Hand Exposure: Yes (Childhood); Do You Dip or Chew Tobacco: No; Hx Alcohol Use: Yes Alcohol Intake Frequency Comment: Rarely Hx Substance Use: No Preferred Language: Albanian Communication Ability: Effective Records And Tape Recordings Engineer Required: No Beliefs That Will Affect Care: None Current Living Situation: Spouse Feels Safe at Home: Yes Assistive Devices: Walker Allergies Allergies Allergy/AdvReac Type Severity Reaction Status Date / Time seasonal Allergy Mild Nasal Uncoded 12/11/23 07:00 Discharge Home Meds Home Medications Medication Instructions Recorded Confirmed metformin 500 mg tablet 1,000 mg PO BID 05/01/22 01/22/24 atorvastatin 10 mg tablet 10 mg PO QPM 05/10/22 01/22/24 cyclobenzaprine 5 mg tablet 5 mg PO TID PRN prn 05/12/22 01/22/24 multivitamin 1 tab PO QAM 11/15/23 01/22/24 omeprazole 20 mg capsule,delayed 20 mg PO DAILY PRN prn 11/15/23 01/22/24 release acetaminophen 500 mg tablet 1,000 mg PO TID PRN pain 01/22/24 01/22/24 (Tylenol Extra Strength) sennosides 8.6 mg tablet (Senokot) See Rx Instructions .Route 01/22/24 01/22/24 .COMPLEX PRN prevent constipation Previous Rx's Medication Instructions Recorded lancets 33 gauge (ProudOnTVTouch Delica #100 ea 05/12/22 Plus Lancet) blood sugar diagnostic (ProudOnTVTouch #50 ea 05/15/22 Verio test strips) OneTouch Verio Reflect Start #1 ea 05/18/22 (blood-glucose meter) semaglutide 2 mg/dose (8 mg/3 mL) 2 mg (0.75 mL) subcut Q7D #3 mL 05/14/23 subcutaneous pen injector blood-glucose sensor (FreeStyle #2 ea 06/08/23 Natalia 3 Sensor device) Wheeled Walker #1 ea 08/03/23 aspirin 81 mg tablet,delayed 81 mg PO BID 45 days #90 tabs 12/08/23 release (Denise Low Dose Aspirin) ketorolac 10 mg tablet 10 mg PO Q6 pain 5 days #20 tabs 12/08/23 ondansetron 4 mg disintegrating 4 mg PO Q8 PRN nausea #20 tabs 12/08/23 tablet Results & Data (ED) Vital Signs Vital Signs - 24 hr 01/22/24 19:31 01/22/24 19:44 01/22/24 19:48 Temperature 36.4 C L Temperature Source Temporal Artery Scan Pulse Rate 95 H 95 H Pulse Rhythm Regular Pulse Strength Normal Respiratory Rate 20 Respiratory Effort / Characteristics Non-Labored Spontaneous Respiratory Depth Normal Blood Pressure 180/117 H Blood Pressure Mean 138 Blood Pressure Position Sitting Pulse Oximetry 100 100 Oxygen Delivery Method Room Air Room Air Sepsis Recent Fever Within 48 Hours No Sepsis New/Unexplained Change in Mental Status N/A Sepsis Action Taken by Nursing No Action Required 01/22/24 23:44 Temperature Temperature Source Pulse Rate 81 Pulse Rhythm Pulse Strength Respiratory Rate Respiratory Effort / Characteristics Respiratory Depth Blood Pressure Blood Pressure Mean Blood Pressure Position Pulse Oximetry Oxygen Delivery Method Sepsis Recent Fever Within 48 Hours Sepsis New/Unexplained Change in Mental Status Sepsis Action Taken by Nursing Laboratory Data 01/22/24 19:39 01/22/24 19:39 Lab Results 01/22/24 01/22/24 Range/Units 19:39 20:15 WBC 17.37 H (4.8-10.8) K/ul RBC 4.96 (4.20-5.40) M/uL Hgb 13.8 (12.0-16.0) g/dl Hct 43.3 (37.0-47.0) % MCV 87.3 (80.0-100.0) fL MCH 27.8 (25.0-34.0) pg MCHC 31.9 L (32.0-36.0) g/dL RDW Std Deviation 44.9 (36.4-46.3) fL RDW Coeff of Babak 14.0 (11.5-14.5) % Plt Count 266 (130-400) K/uL MPV 10.2 (9.4-12.4) fL Immature Gran % (Auto) 0.4 % Neut % (Auto) 66.8 % Lymph % (Auto) 24.2 % Coal % (Auto) 6.1 % Eos % (Auto) 1.9 % Baso % (Auto) 0.6 % Neut # (Auto) 11.61 H (1.40-6.50) K/uL Lymph # (Auto) 4.20 H (1.20-3.40) K/uL Coal # (Auto) 1.06 H (0.11-0.59) K/uL Eos # (Auto) 0.33 (0.00-0.50) K/uL Baso # (Auto) 0.10 (0.00-0.20) K/uL Immature Gran # (Auto) 0.07 (0.01-0.20) K/uL PT 10.3 (9.0-12.0) Seconds INR 0.9 (0.9-1.1) APTT 26 (21-31) Seconds PTT Ratio 1.0 Sodium 140 (136-145) mmol/L Potassium 3.7 (3.5-5.1) mmol/L Chloride 105 (98-107) mmol/L Carbon Dioxide 23 (21-32) mmol/L Anion Gap 12 H (3-11) BUN 17 (6-23) mg/dl Creatinine 0.83 (0.6-1.2) mg/dl Est Cr Clr Drug Dosing 103.8 ml/min eGFR 87.99 BUN/Creatinine Ratio 20.5 H (10-20) Glucose 205 H (70-99(Fasting)) mg/dl Calcium 9.8 (8.6-10.3) mg/dl Magnesium 1.5 L (1.7-2.4) mg/dl Total Bilirubin 0.5 (0.2-1.0) mg/dl AST 30 (13-39) U/L ALT 26 (7-52) U/L Alkaline Phosphatase 80 (34-104) U/L Total Protein 7.3 (6.0-8.3) gm/dl Albumin 4.6 (3.4-5.0) gm/dl Globulin 2.7 (2.5-4.0) gm/dl Albumin/Globulin Ratio 1.7 (0.9-2) Lipase 29 (11-82) U/L Urine Color [place] Urine Appearance Cloudy A (Clear) Urine pH 5.5 (4.5-7.5) Ur Specific [place] 1.020 (1.000-1.030) Urine Protein 1+ H (Negative) Urine Glucose (UA) Trace H (Negative) Urine Ketones Trace H (Negative) Urine Blood 3+ H (Negative) Urine Nitrite Negative (Negative) Urine Bilirubin Negative (Negative) Urine Urobilinogen Negative (Negative) Ur Leukocyte Esterase 1+ H (Negative) Urine WBC (Auto) 11-20 H (0-5) /hpf Urine RBC (Auto) >20 H (0-2) /hpf U Hyaline Cast (Auto) 0-2 (0-2) /lpf U Epithel Cells (Auto) 0-2 (0-2) /hpf Urine Bacteria (Auto) None Seen (None Seen) Administered Medications Morphine Sulfate (Morphine Sulfate 4 Mg/Ml 1 Ml Carp\Vial) 4 mg IV Q2H PRN PRN Reason: Pain Stop: 02/05/24 21:50 Last Admin: 01/23/24 00:55 Dose: 4 mg Documented By: Admin: 01/22/24 22:10 Dose: 4 mg Documented By: JASON Discontinued Medications Acetaminophen (Ofirmev) 1,000 mg in 100 mls @ 400 mls/hr IV NOW STA Stop: 01/22/24 21:17 Last Infusion: 01/22/24 21:25 Dose: Infused Documented By: Admin: 01/22/24 21:07 Dose: 400 mls/hr Documented By: JASON Ceftriaxone Sodium (Rocephin) 2,000 mg in 50 mls @ 100 mls/hr IV NOW STA Stop: 01/22/24 22:08 Last Infusion: 01/22/24 22:23 Dose: Infused Documented By: Admin: 01/22/24 21:51 Dose: 100 mls/hr Documented By: JASON Sodium Chloride (Nss) 1,000 mls @ 999 mls/hr IV .Q1H1M ONE Stop: 01/22/24 22:41 Last Infusion: 01/22/24 22:53 Dose: Infused Documented By: Admin: 01/22/24 21:50 Dose: 999 mls/hr Documented By: JASON Ketorolac Tromethamine (Ketorolac Tromethamine 15 Mg/Ml Vial) Confirm Administered Dose 15 mg .ROUTE .STK-MED ONE Stop: 01/22/24 19:37 Last Admin: 01/22/24 19:41 Dose: Not Given Documented By: REBECCA Ketorolac Tromethamine (Ketorolac Tromethamine 15 Mg/Ml Vial) 10 mg IV NOW ONE Stop: 01/22/24 19:41 Last Admin: 01/22/24 19:41 Dose: 10 mg Documented By: REBECCA Ondansetron HCl (Ondansetron Inj 2 Mg/Ml 2 Ml Vial) Confirm Administered Dose 4 mg .ROUTE .STK-MED ONE Stop: 01/22/24 19:37 Last Admin: 01/22/24 19:41 Dose: Not Given Documented By: REBECCA Ondansetron HCl (Ondansetron Inj 2 Mg/Ml 2 Ml Vial) 4 mg IV NOW STA Stop: 01/22/24 19:41 Last Admin: 01/22/24 19:41 Dose: 4 mg Documented By: REBECCA Ondansetron HCl (Ondansetron Inj 2 Mg/Ml 2 Ml Vial) 4 mg IV NOW STA Stop: 01/22/24 22:07 Last Admin: 01/22/24 22:10 Dose: 4 mg Documented By: JASON Imaging Data Radiologist's Impression: Abdomen/Pelvis CT 01/22/24 19:37 Exam(s): CT ABDOMEN + PELVIS Without Contrast EXAM: CT Abdomen and Pelvis Without Intravenous Contrast CLINICAL HISTORY: Reason for exam: right flank pain. TECHNIQUE: Axial computed tomography images of the abdomen and pelvis without intravenous contrast. CTDI is 27.54 mGy and DLP is 1392.63 mGy-cm. Automated exposure control was utilized for the study. A dose lowering technique was utilized adhering to the principles of ALARA. COMPARISON: None FINDINGS: Lung bases: Unremarkable. No mass. No consolidation. ABDOMEN: Liver: Unremarkable. Gallbladder and bile ducts: Unremarkable. No calcified stones. No ductal dilation. Pancreas: Unremarkable. No ductal dilation. Spleen: Unremarkable. No splenomegaly. Adrenals: Unremarkable. No mass. Kidneys and ureters: 3 mm stone in the distal right ureter. Mild right hydroureteronephrosis. Prominent right perinephric fat stranding. Additional right renal stones. 1.3 cm stone in the proximal left ureter. Mild left hydronephrosis. Small left renal stone. Stomach and bowel: Evaluation of the stomach is limited by underdistention. No mucosal thickening. No bowel obstruction or inflammation. PELVIS: Appendix: Normal appendix. Bladder: Underdistended bladder limits evaluation. No stones. Reproductive: Unremarkable as visualized. ABDOMEN and PELVIS: Intraperitoneal space: Unremarkable. No free air. No significant fluid collection. Bones/joints: Left hip arthroplasty causes streak artifact that limits evaluation of portions of the pelvis. Degenerative changes of the spine. No acute fracture. No dislocation. Soft tissues: Unremarkable. Vasculature: Unremarkable. No abdominal aortic aneurysm. Lymph nodes: Unremarkable. No enlarged lymph nodes. IMPRESSION: 1. 3 mm stone in the distal right ureter. Mild right hydroureteronephrosis. Prominent right perinephric fat stranding. Additional right renal stones. 2. 1.3 cm stone in the proximal left ureter. Mild left hydronephrosis. Small left renal stone. Electronically signed by: Di Cary M.D. 01/22/24 21:01 PM Discharge Plan Visit Data Chief Complaint: Kidney Stone Stated Complaint: KIDNEY STONE, 6 WKS POST OP ED Provider: Mario Russell ED Midlevel Provider: Aida Escalera Discharge Problem: Abdominal wall pain in right flank, Calculus of both ureters, Leukocytosis Patient Disposition: Admitted As Inpatient Forms Stand Alone Forms: [facility] Prescriptions Prescriptions: No Action (DME) Lamiecco VerNetrada test strips Strip See Rx Instructions .ROUTE .MEDSUPPLY Qty: 50 5RF Rx Instructions: test once per day (DME) blood-glucose meter [Lamiecco Verio Reflect Start] Kit See Rx Instructions .ROUTE .MEDSUPPLY Qty: 1 0RF Rx Instructions: check blood glucose daily semaglutide 2 mg/dose (8 mg/3 mL) pen injector 2 mg subcut Q7D Qty: 3 12RF Rx Instructions: Takes on (DME) FreeStyle Natalia 3 Sensor Device See Rx Instructions .Route Qty: 2 12RF Rx Instructions: Change every 14 days ondansetron 4 mg tablet,disintegrating 4 mg PO Q8 PRN (Reason: nausea) Qty: 20 1RF Rx Instructions: Take as needed for nausea ketorolac 10 mg tablet 10 mg PO Q6 5 Days Qty: 20 0RF Rx Instructions: Take 4 times per day with food for 5 days to lessen pain and swelling. aspirin [Denise Low Dose Aspirin] 81 mg tablet,delayed release (DR/EC) 81 mg PO BID 45 Days Qty: 90 0RF Rx Instructions: Take to prevent blood clots. metformin 500 mg tablet 1,000 mg PO BID atorvastatin 10 mg tablet 10 mg PO QPM cyclobenzaprine 5 mg tablet 5 mg PO TID PRN (Reason: prn) (DME) lancets [Lamiecco Delica Plus Lancet] 33 gauge misc See Rx Instructions .ROUTE .MEDSUPPLY Qty: 100 5RF Rx Instructions: Check blood glucose once daily (DME) Wheeled Walker Misc See Rx Instructions .MEDSUPPLY Qty: 1 0RF Rx Instructions: As directed multivitamin Tablet 1 tab PO QAM omeprazole 20 mg Capsule,Delayed Release(Dr/Ec) 20 mg PO DAILY PRN (Reason: prn) sennosides [Senokot] 8.6 mg tablet See Rx Instructions .ROUTE .COMPLEX PRN (Reason: prevent constipation) Rx Instructions: 2 tabs hs acetaminophen [Tylenol Extra Strength] 500 mg tablet 1,000 mg PO TID PRN (Reason: pain) Rx Instructions: Take 3 times per day to lessen pain. Referrals Referrals: Nelson Cosme D.O. [Primary Care Provider] -
--- NOTE | 2024-01-23 02:07 | History & Physical Report ---
Date of Service January 23, 2024 Assessment & Plan (1) Calculus of both ureters: Plan: 48-year-old female with past medical history significant for type 2 diabetes, status post left hip replacement 6 weeks ago comes because of right flank pain and found to have kidney stones. Patient says she has history of kidney stones in the past but passed them by herself and no intervention needed in the past. Today in the afternoon she noticed pain in the right flank region which came down to the groin region by the evening and as it was not improving came to the ER. In the ER she noticed some blood in the urine. She had pain medications in ER which seems not helping much per patient. Had nausea and vomited in the ER. Zofran helped her. She was constipated post hip surgery but currently with bowel regimen bowels are moving okay. Denies any blood in the stools. Denies any chest pain or shortness of breath. No cough. No fever. No runny nose or sore throat or cough. Currently resting comfortably and hemodynamically stable. She was on aspirin for DVT prophylaxis after hip surgery but states she stopped it yesterday after 6 weeks of surgery. Calculus of both ureters Came with the right flank and groin pain CT scan showin. 3 mm stone in the distal right ureter. Mild right hydroureteronephrosis. Prominent right perinephric fat stranding. Additional right renal stones. 2. 1.3 cm stone in the proximal left ureter. Mild left hydronephrosis. Small left renal stone. IV fluids, n.p.o., IV Dilaudid as needed, IV Toradol as needed IV antiemetics as needed Urology consult in a.m. Possible UTI Rocephin Will follow cultures Diabetes Hold metformin Sliding scale Will monitor Follow HbA1c levels Hyperlipidemia Statin Constipation Stool softeners DVT prophylaxis SCDs for now Disposition Medical floor Full code. History of Present Illness Chief Complaint: 48-year-old female with past medical history significant for type 2 diabetes, status post left hip replacement 6 weeks ago comes because of right flank pain and found to have kidney stones. Patient says she has history of kidney stones in the past but passed them by herself and no intervention needed in the past. Today in the afternoon she noticed pain in the right flank region which came down to the groin region by the evening and as it was not improving came to the ER. In the ER she noticed some blood in the urine. She had pain medications in ER which seems not helping much per patient. Had nausea and vomited in the ER. Kayean helped her. She was constipated post hip surgery but currently with bowel regimen bowels are moving okay. Denies any blood in the stools. Denies any chest pain or shortness of breath. No cough. No fever. No runny nose or sore throat or cough. Currently resting comfortably and hemodynamically stable. She was on aspirin for DVT prophylaxis after hip surgery but states she stopped it yesterday after 6 weeks of surgery. Past medical history. As mentioned above Past surgical history. . Surgical repair of right boxer's fracture. Endometrial ablation hysteroscopy. Laparoscopic fulguration of oviducts. Removal of intrauterine device. Social history. No smoking. No alcohol use. No drug use. Family history. Mother had asthma/hypertension. Father has depression. Melanoma, sleep apnea. Sister has diabetes. Maternal grandmother has diabetes. Breast cancer. Paternal grandmother had skin cancer/thyroid cancer. Paternal grandfather had prostate/bladder cancer. Primary Care Provider: Nelson Cosme Allergies Allergy/AdvReac Type Severity Reaction Status Date / Time No Known Drug Allergies Allergy . Verified 01/23/24 04:21 Home Medications Medication Instructions Recorded Confirmed Type metformin 500 mg tablet 1,000 mg PO BID 05/01/22 01/22/24 History atorvastatin 10 mg tablet 10 mg PO QPM 05/10/22 01/22/24 History cyclobenzaprine 5 mg tablet 5 mg PO TID PRN prn 05/12/22 01/22/24 History lancets 33 gauge (OneTouch Delica #100 ea 05/12/22 09/21/23 Rx Plus Lancet) blood sugar diagnostic (EmefcyTouch #50 ea 05/15/22 09/21/23 Rx Verio test strips) OneTouch Verio Reflect Start #1 ea 05/18/22 09/21/23 Rx (blood-glucose meter) semaglutide 2 mg/dose (8 mg/3 mL) 2 mg (0.75 mL) subcut Q7D #3 mL 05/14/23 01/22/24 Rx subcutaneous pen injector blood-glucose sensor (FreeStyle #2 ea 06/08/23 09/21/23 Rx Natalia 3 Sensor device) Wheeled Walker #1 ea 08/03/23 09/21/23 Rx multivitamin 1 tab PO QAM 11/15/23 01/22/24 History omeprazole 20 mg capsule,delayed 20 mg PO DAILY PRN prn 11/15/23 01/22/24 History release aspirin 81 mg tablet,delayed 81 mg PO BID 45 days #90 tabs 12/08/23 01/22/24 Rx release (Denise Low Dose Aspirin) ketorolac 10 mg tablet 10 mg PO Q6 pain 5 days #20 tabs 12/08/23 01/22/24 Rx ondansetron 4 mg disintegrating 4 mg PO Q8 PRN nausea #20 tabs 12/08/23 01/22/24 Rx tablet acetaminophen 500 mg tablet 1,000 mg PO TID PRN pain 01/22/24 01/22/24 History (Tylenol Extra Strength) sennosides 8.6 mg tablet (Senokot) See Rx Instructions .Route 01/22/24 01/22/24 History .COMPLEX PRN prevent constipation Past Med/Surg History Problem List (Updated 01/23/24 @ 01:07 by Aida Escalera PA-C) Leukocytosis (Acute) Calculus of both ureters (Acute) Abdominal wall pain in right flank (Acute) Status post left hip replacement Diabetes mellitus type 2, controlled, without complications Obesity, diabetes, and hypertension syndrome Obesity (BMI 30.0-34.9) Mixed hyperlipidemia Medical History Encounter for pre-operative examination Arthritis of left hip GERD (gastroesophageal reflux disease) intermittent, stable per pt-omeprazole prn White coat syndrome with high blood pressure but without hypertension Chronic low back pain stable per pt Obesity (BMI 30.0-34.9) History of anesthesia reaction difficulty waking up after hand surgery in and sats low at that time; patient states that was told first attempt was not successful and medication entered body, second attempt was only beneficial on one side-O2 sats dropped needing to be placed in recovery unit; she is unsure if supplemental oxygen was administered Mixed hyperlipidemia Diabetes mellitus, type II NIDDM Unilateral primary osteoarthritis, left hip Surgical History History of tubal ligation H/O section (~1999) History of endometrial ablation (~07/03/17) Family History Father Melanoma Cirrhosis with alcoholism Mother Asthma Hypertension COPD (chronic obstructive pulmonary disease) Grandmother (Maternal) Breast cancer Alcoholism Grandmother (Paternal) Arthritis Grandfather (Paternal) Cancer Family/Other History of heart attack Social History Smoking Status: Never smoker Second Hand Exposure: No; Do You Dip or Chew Tobacco: No; Tobacco Cessation Education Requested by Patient: No Hx Alcohol Use: Yes Alcohol type: beer Alcohol Intake Frequency Comment: Rarely Hx Substance Use: No Preferred Language: Portuguese Communication Ability: Effective Grab Driver Required: No Beliefs That Will Affect Care: None Current Living Situation: Family Other Information That Helps Us Care for You: No Feels Safe at Home: Yes Safety Concerns: Feels Safe At This Time Assistive Devices: Glasses Review of Systems Review of Systems: All systems reviewed & are unremarkable except as noted in HPI & below Physical Exam Physical Exam: General- Not in distress Head- atraumatic Eyes- PERRL. ENT- oropharynx clear Neck- supple, no JVD. Lungs- clear to auscultation no wheezing or crackles Heart- regular rate and rhythm; no murmur, no gallop. Abdomen- normal bowel sounds, soft, nontender, no distension Extremities- no pretibial edema, no erythema seen. Neuro- alert, oriented PERRL, no facial palsy; no dysarthria; moves extremities Results & Data Results & Data Vital Signs (Past 12 Hours) Vital Signs Temp Pulse Resp BP Pulse Ox O2 Del Method 01/22/24 23:44 81 01/22/24 19:48 95 H 01/22/24 19:44 100 Room Air 01/22/24 19:31 36.4 C L 95 H 20 180/117 H 100 Room Air Diagnostic Findings Laboratory Results WBC 17.37 K/ul (4.8-10.8) H 01/22/24 19:39 RBC 4.96 M/uL (4.20-5.40) 01/22/24 19:39 Hgb 13.8 g/dl (12.0-16.0) 01/22/24 19:39 Hct 43.3 % (37.0-47.0) 01/22/24 19:39 MCV 87.3 fL (80.0-100.0) 01/22/24 19:39 MCH 27.8 pg (25.0-34.0) 01/22/24 19:39 MCHC 31.9 g/dL (32.0-36.0) L 01/22/24 19:39 RDW Std Deviation 44.9 fL (36.4-46.3) 01/22/24 19:39 RDW Coeff of Babak 14.0 % (11.5-14.5) 01/22/24 19:39 Plt Count 266 K/uL (130-400) 01/22/24 19:39 MPV 10.2 fL (9.4-12.4) 01/22/24 19:39 Immature Gran % (Auto) 0.4 % 01/22/24 19:39 Neut % (Auto) 66.8 % 01/22/24 19:39 Lymph % (Auto) 24.2 % 01/22/24 19:39 Blaine % (Auto) 6.1 % 01/22/24 19:39 Eos % (Auto) 1.9 % 01/22/24 19:39 Baso % (Auto) 0.6 % 01/22/24 19:39 Neut # (Auto) 11.61 K/uL (1.40-6.50) H 01/22/24 19:39 Lymph # (Auto) 4.20 K/uL (1.20-3.40) H 01/22/24 19:39 Blaine # (Auto) 1.06 K/uL (0.11-0.59) H 01/22/24 19:39 Eos # (Auto) 0.33 K/uL (0.00-0.50) 01/22/24 19:39 Baso # (Auto) 0.10 K/uL (0.00-0.20) 01/22/24 19:39 Immature Gran # (Auto) 0.07 K/uL (0.01-0.20) 01/22/24 19:39 PT 10.3 Seconds (9.0-12.0) 01/22/24 19:39 INR 0.9 (0.9-1.1) 01/22/24 19:39 APTT 26 Seconds (21-31) 01/22/24 19:39 PTT Ratio 1.0 01/22/24 19:39 Sodium 140 mmol/L (136-145) 01/22/24 19:39 Potassium 3.7 mmol/L (3.5-5.1) 01/22/24 19:39 Chloride 105 mmol/L (98-107) 01/22/24 19:39 Carbon Dioxide 23 mmol/L (21-32) 01/22/24 19:39 Anion Gap 12 (3-11) H 01/22/24 19:39 BUN 17 mg/dl (6-23) 01/22/24 19:39 Creatinine 0.83 mg/dl (0.6-1.2) 01/22/24 19:39 Est Cr Clr Drug Dosing 103.8 ml/min 01/22/24 19:39 eGFR 87.99 01/22/24 19:39 BUN/Creatinine Ratio 20.5 (10-20) H 01/22/24 19:39 Glucose 205 mg/dl (70-99(Fasting)) H 01/22/24 19:39 Calcium 9.8 mg/dl (8.6-10.3) 01/22/24 19:39 Magnesium 1.5 mg/dl (1.7-2.4) L 01/22/24 19:39 Total Bilirubin 0.5 mg/dl (0.2-1.0) 01/22/24 19:39 AST 30 U/L (13-39) 01/22/24 19:39 ALT 26 U/L (7-52) 01/22/24 19:39 Alkaline Phosphatase 80 U/L (34-104) 01/22/24 19:39 Total Protein 7.3 gm/dl (6.0-8.3) 01/22/24 19:39 Albumin 4.6 gm/dl (3.4-5.0) 01/22/24 19:39 Globulin 2.7 gm/dl (2.5-4.0) 01/22/24 19:39 Albumin/Globulin Ratio 1.7 (0.9-2) 01/22/24 19:39 Lipase 29 U/L (11-82) 01/22/24 19:39 Urine Color Kidder 01/22/24 20:15 Urine Appearance Cloudy (Clear) A 01/22/24 20:15 Urine pH 5.5 (4.5-7.5) 01/22/24 20:15 Ur Specific [place] 1.020 (1.000-1.030) 01/22/24 20:15 Urine Protein 1+ (Negative) H 01/22/24 20:15 Urine Glucose (UA) Trace (Negative) H 01/22/24 20:15 Urine Ketones Trace (Negative) H 01/22/24 20:15 Urine Blood 3+ (Negative) H 01/22/24 20:15 Urine Nitrite Negative (Negative) 01/22/24 20:15 Urine Bilirubin Negative (Negative) 01/22/24 20:15 Urine Urobilinogen Negative (Negative) 01/22/24 20:15 Ur Leukocyte Esterase 1+ (Negative) H 01/22/24 20:15 Urine WBC (Auto) 11-20 /hpf (0-5) H 01/22/24 20:15 Urine RBC (Auto) >20 /hpf (0-2) H 01/22/24 20:15 U Hyaline Cast (Auto) 0-2 /lpf (0-2) 01/22/24 20:15 U Epithel Cells (Auto) 0-2 /hpf (0-2) 01/22/24 20:15 Urine Bacteria (Auto) None Seen (None Seen) 01/22/24 20:15 Impressions Abdomen/Pelvis CT 01/22/24 19:37 Exam(s): CT ABDOMEN + PELVIS Without Contrast EXAM: CT Abdomen and Pelvis Without Intravenous Contrast CLINICAL HISTORY: Reason for exam: right flank pain. TECHNIQUE: Axial computed tomography images of the abdomen and pelvis without intravenous contrast. CTDI is 27.54 mGy and DLP is 1392.63 mGy-cm. Automated exposure control was utilized for the study. A dose lowering technique was utilized adhering to the principles of ALARA. COMPARISON: None FINDINGS: Lung bases: Unremarkable. No mass. No consolidation. ABDOMEN: Liver: Unremarkable. Gallbladder and bile ducts: Unremarkable. No calcified stones. No ductal dilation. Pancreas: Unremarkable. No ductal dilation. Spleen: Unremarkable. No splenomegaly. Adrenals: Unremarkable. No mass. Kidneys and ureters: 3 mm stone in the distal right ureter. Mild right hydroureteronephrosis. Prominent right perinephric fat stranding. Additional right renal stones. 1.3 cm stone in the proximal left ureter. Mild left hydronephrosis. Small left renal stone. Stomach and bowel: Evaluation of the stomach is limited by underdistention. No mucosal thickening. No bowel obstruction or inflammation. PELVIS: Appendix: Normal appendix. Bladder: Underdistended bladder limits evaluation. No stones. Reproductive: Unremarkable as visualized. ABDOMEN and PELVIS: Intraperitoneal space: Unremarkable. No free air. No significant fluid collection. Bones/joints: Left hip arthroplasty causes streak artifact that limits evaluation of portions of the pelvis. Degenerative changes of the spine. No acute fracture. No dislocation. Soft tissues: Unremarkable. Vasculature: Unremarkable. No abdominal aortic aneurysm. Lymph nodes: Unremarkable. No enlarged lymph nodes. IMPRESSION: 1. 3 mm stone in the distal right ureter. Mild right hydroureteronephrosis. Prominent right perinephric fat stranding. Additional right renal stones. 2. 1.3 cm stone in the proximal left ureter. Mild left hydronephrosis. Small left renal stone. Electronically signed by: Di Cary M.D. 01/22/24 21:01 PM Code Status & VTE Plan VTE Prophylaxis Plan VTE Prophylaxis will be ordered: Yes
[2024-01-23] MEDS ORDERED: GLUCOSE 40% GEL 15 GM TUBE PO PRN (04:05)
[2024-01-23] MEDS ORDERED: DEXTROSE 50% 50 ML SYRINGE IV PRN (04:05)
[2024-01-23] MEDS ORDERED: HYDROmorphone INJ 0.5 MG/0.5 ML SYR IV PRN (04:05)
[2024-01-23] MEDS ORDERED: GLUCOSE 10 TAB/TUBE PO PRN (04:05)
[2024-01-23] MEDS ORDERED: CYCLOBENZAPRINE HCL 10 MG TAB PO PRN (04:05)
[2024-01-23] MEDS ORDERED: ONDANSETRON INJ 2 MG/ML 2 ML VIAL IV PRN (04:05)
[2024-01-23] MEDS ORDERED: CARBOHYDRATES FOR HYPOGLYCEMIA PO PRN (04:05)
[2024-01-23] MEDS ORDERED: GLUCAGON FOR INJ 1 MG VIAL SQ PRN (04:05)
[2024-01-23] MEDS ORDERED: PANTOprazole 40 MG TAB PO PRN (04:25)
[2024-01-23] MEDS: SODIUM CHLORIDE 0.9% 1,000 ML IV SCH (04:53)
[2024-01-23] MEDS: HYDROmorphone INJ 0.5 MG/0.5 ML SYR IV PRN (04:53)
[2024-01-23] MEDS: INSULIN ASPART PER UNIT CHARGE SC SCH (05:11)
[2024-01-23] MEDS: KETOROLAC TROMETHAMINE 15 MG/ML VIAL IV PRN (05:44)
[2024-01-23 07:45] LABS: Basophils # (auto) 0.07 K/uL (0.00-0.20); Basophils % (auto) 0.7 %; Eosinophils # (auto) 0.15 K/uL (0.00-0.50); Eosinophils % (auto) 1.6 %; Hematocrit (blood only) 37.6 % (37.0-47.0); Hemoglobin 12.3 g/dl (12.0-16.0); Immature Granulocytes # (auto) 0.03 K/uL (0.01-0.20); Immature Granulocytes % (auto) 0.3 %; Lymphocytes # (auto) 2.47 K/uL (1.20-3.40); Lymphocytes % (auto) 25.6 %; Mean Corpuscular Hemoglobin 28.3 pg (25.0-34.0); Mean Corpuscular Hgb Conc 32.7 g/dL (32.0-36.0); Mean Corpuscular Volume 86.6 fL (80.0-100.0); Mean Platelet Volume 10.4 fL (9.4-12.4); Monocytes # (auto) 0.72 K/uL (0.11-0.59); Monocytes % (auto) 7.5 %; Neutrophils # (auto) 6.22 K/uL (1.40-6.50); Neutrophils % (auto) 64.3 %; Platelet Count 202 K/uL (130-400); RDW Coefficient of Variation 14.1 % (11.5-14.5); RDW Standard Deviation 44.8 fL (36.4-46.3); Red Blood Count 4.34 M/uL (4.20-5.40); White Blood Count 9.66 K/ul (4.8-10.8)
[2024-01-23 08:05] LABS: BUN Creatinine Ratio 20.9 (10-20); Calcium 8.4 mg/dl (8.6-10.3); Creatinine Clr Calc Pharmacy 127.7 ml/min; Magnesium 1.5 mg/dl (1.7-2.4); Potassium 3.7 mmol/L (3.5-5.1)
--- NOTE | 2024-01-23 09:05 | Urology Consultation ---
Date of Consultation January 23, 2024 Assessment & Plan (1) Calculus of both ureters: (2) Hydronephrosis: (3) Renal colic: (4) Leukocytosis: Plan 48 yo/F who presented with severe right flank pain and found to have bilateral obstructing ureteral stones. She is afebrile with stable vitals at present Leukocytosis improved from 17-9 today and has a normal renal function Urine culture is pending She is voiding without issue We reviewed her CT findings of bilateral obstructing ureteral stones. We discussed recommendation for bilateral ureteral stent placement. Ureteral stents were discussed as well as postoperative issues and pain management. She is aware additional procedures will be needed for stone treatment. Risks and benefits were discussed. All questions were answered. She is agreeable to proceeding. Will plan to proceed to OR today for cystoscopy, bilateral retrograde pyelogram, bilateral ureteral stent placement. Risks and benefits to be reviewed with patient by Dr. Santiago. Keep NPO. She is covered with scheduled IV ceftriaxone. Continue supportive care and pain management as needed. Urology to follow. Please contact our service with any questions/concerns or changes in patient status. Supervising Physician Co-Signing Physician Notes Discussed patient with KATIE. Agree with plan. She talked to patient and her . Recommended bilateral stents given bilateral obstruction. Consent obtained. Ancef to the OR. History of Present Illness Attending Physician: Celso Elder MD History of Present Illness 48 year old female with past medical history significant for type 2 diabetes, status post left hip replacement 6 weeks ago who presented with right flank pain and found to have bilateral obstructing ureteral stones. On arrival, she was afebrile and hemodynamically stable. Labs showing a leukocytosis of 17 and normal renal function. Urinalysis with 3+ blood, 1+ LE, negative bacteria, negative nitrite. Urine culture collected and pending. CT abdomen pelvis demonstrated an obstructing 3 mm stone in the distal right ureter and an obstructing 1.3 cm stone in the proximal left ureter. She was started on Rocephin and admitted to medicine service. Patient seen at bedside this morning. Awake and resting in bed on arrival. No acute distress. Pain is currently well-controlled. Denies fever, chills, nausea, vomiting at present. Voiding without issue. Reports some hematuria and mild dysuria. She has been NPO other than sips of water. She reports a prior history of kidney stones with spontaneous passage. She has never needed surgical intervention. She does not follow with a urologist. Allergies Allergy/AdvReac Type Severity Reaction Status Date / Time No Known Drug Allergies Allergy . Verified 01/23/24 04:21 Home Medications Medication Instructions Recorded Confirmed Type metformin 500 mg tablet 1,000 mg PO BID 05/01/22 01/22/24 History atorvastatin 10 mg tablet 10 mg PO QPM 05/10/22 01/22/24 History cyclobenzaprine 5 mg tablet 5 mg PO TID PRN prn 05/12/22 01/22/24 History lancets 33 gauge (X[employer]Touch Delica #100 ea 05/12/22 09/21/23 Rx Plus Lancet) blood sugar diagnostic (X[employer]Touch #50 ea 05/15/22 09/21/23 Rx Verio test strips) [employer] Verio Reflect Start #1 ea 05/18/22 09/21/23 Rx (blood-glucose meter) semaglutide 2 mg/dose (8 mg/3 mL) 2 mg (0.75 mL) subcut Q7D #3 mL 05/14/23 01/22/24 Rx subcutaneous pen injector blood-glucose sensor (FreeStyle #2 ea 06/08/23 09/21/23 Rx Natalia 3 Sensor device) Wheeled Walker #1 ea 08/03/23 09/21/23 Rx multivitamin 1 tab PO QAM 11/15/23 01/22/24 History omeprazole 20 mg capsule,delayed 20 mg PO DAILY PRN prn 11/15/23 01/22/24 History release aspirin 81 mg tablet,delayed 81 mg PO BID 45 days #90 tabs 12/08/23 01/22/24 Rx release (Denise Low Dose Aspirin) ketorolac 10 mg tablet 10 mg PO Q6 pain 5 days #20 tabs 12/08/23 01/22/24 Rx ondansetron 4 mg disintegrating 4 mg PO Q8 PRN nausea #20 tabs 12/08/23 01/22/24 Rx tablet acetaminophen 500 mg tablet 1,000 mg PO TID PRN pain 01/22/24 01/22/24 History (Tylenol Extra Strength) sennosides 8.6 mg tablet (Senokot) See Rx Instructions .Route 01/22/24 01/22/24 History .COMPLEX PRN prevent constipation Patient History Medical History Encounter for pre-operative examination Arthritis of left hip GERD (gastroesophageal reflux disease) intermittent, stable per pt-omeprazole prn White coat syndrome with high blood pressure but without hypertension Chronic low back pain stable per pt Obesity (BMI 30.0-34.9) History of anesthesia reaction difficulty waking up after hand surgery in and sats low at that time; patient states that was told first attempt was not successful and medication entered body, second attempt was only beneficial on one side-O2 sats dropped needing to be placed in recovery unit; she is unsure if supplemental oxygen was administered Mixed hyperlipidemia Diabetes mellitus, type II NIDDM Unilateral primary osteoarthritis, left hip Surgical History History of tubal ligation H/O section (~1999) History of endometrial ablation (~07/03/17) Family History Father Melanoma Cirrhosis with alcoholism Mother Asthma Hypertension COPD (chronic obstructive pulmonary disease) Grandmother (Maternal) Breast cancer Alcoholism Grandmother (Paternal) Arthritis Grandfather (Paternal) Cancer Family/Other History of heart attack Social History Smoking Status: Never smoker Second Hand Exposure: No; Do You Dip or Chew Tobacco: No; Tobacco Cessation Education Requested by Patient: No Hx Alcohol Use: Yes Alcohol type: beer Alcohol Intake Frequency Comment: Rarely Hx Substance Use: No Preferred Language: Romansh Communication Ability: Effective Assemblies And Installations Inspector Required: No Beliefs That Will Affect Care: None Current Living Situation: Family Other Information That Helps Us Care for You: No Feels Safe at Home: Yes Safety Concerns: Feels Safe At This Time Assistive Devices: Glasses Review of Systems Review of Systems: All systems reviewed & are unremarkable except as noted in HPI & below Physical Exam Constitutional: no acute distress Respiratory: no respiratory distress and no labored breathing Musculoskeletal: Head/Neck/Chest: normocephalic Skin: No visible rashes or lesions to exposed skin areas Neurologic: moves all extremities and awake Psychiatric: A+Ox3, euthymic affect Results & Data Vital Signs (Past 12 Hours) Vital Signs Temp Pulse Resp BP BP Pulse Ox O2 Del Method 01/23/24 04:25 Room Air 01/23/24 04:25 37.0 C 20 155/90 H 96 Room Air 01/23/24 02:03 80 18 147/95 H 98 01/22/24 23:57 82 17 151/98 H 95 01/22/24 23:44 81 01/22/24 22:00 86 25 H 184/105 H 97 01/22/24 21:00 88 22 173/98 H 97 PG Care Time/CCT Total # of Minutes Spent Total Time Spent with Patient: Total time spent is greater than 50% in coordination of care (as documented) at patient's floor/unit and/or counseling patient: Coding Level of Care Code 36084 IN/OBS CONSULT LVL 4,60M Diagnoses Calculus of both ureters N20.1 Hydronephrosis N13.30 Renal colic N23 Leukocytosis D72.829
--- OUTSIDE RECORDS SUMMARY | 2024-01-23 09:12 | External Medical Summary | Continuity of Care Document ---
Author Name Unknown Organization [place] Address [address], [place] [address] Phone [phone] Care Team Providers Care Curtain Stitcher Name Role Phone [facility] Care Team Information Rec eiver [phone] Problems Active Problems Provider Date Type II diabetes mellitus uncontrolled Иван jara PA-C Onset: 04/16/2023 Mixed hyperlipidemia Иван Reyes PA-C Onset: 0 04/16/2023 Body mass index 30+ - obesity Иван Reyes PA-C Onset: 04/16/2023 Social History Type Date Description Comments Sex Unknown Tobacco Use Reviewed: 01/14/24 Never Smoked Cigarette s Tobacco Use Reviewed: 01/14/24 Never Smoked Cigars Smoking Status Reviewed: 01/14/24 Never Smoked Cigars Tobacco Use Reviewed: 01/14/24 Never Smoked A Pipe Smokeless Tobacco 01/14/2024 Never Used Smokeless To bacco ETOH Use 08/07/2017 Rarely consumes alcohol Recreational Drug Use 08/07/2017 Never Used Drugs Allergies and adverse reactions Description No Known Drug Allergies Medications Active Medications SIG Qnty Indications Order ing Provider Date [id number] Capsules take 4 caps po 1 hr prior to dental work 4caps Cordell Akers JR, DO 01/14/20[address]-Ywp55jo Table[address] DR 1 tab twice daily Unknown 12/12/2023 Senokot8.6mg Tablets 1 tablet by mouth twice a day Unknown 12/12/2023 Acetaminophen Extra Hopginwk989uq Tablets 2 tabs three times daily Unknown 12/12/2023 Advocate Insulin Pen Unwqlew86F X 4 mm Misc use to inject ozempic once weekly 10units TAHMINA Baptiste 09/20/2022 Atorvastatin Dulteqd85wl Tablets take 1 tablet by mouth every day 90tabs E78.2 Cordell Akers JR, DO 06/06/2021 Cyclobenzaprine EJH11kk Tablets take 1 tablet by mouth every at bedtime as needed pain 30tabs M16.12 Cordell Akers JR, DO 12/19/2019 Metformin OEK362at Tablets Take 2 Tablets In The Morning And 2 Tablets AT Night 360tabs Cordell Akers JR, DO 02/01/2018 Multivitamin Gummies WomensChewtabs daily / otc Unknown Ozempic (2 MG/Dose)8mg/3ML Solution Pen-Inject inject 2 mg subcutaneously every week Unknown History Medications Tramadol GUJ37mg Tablets 1-2 tabs every 6 hrs prn Unknown 12/12/2023 - 10/2023 Ketorolac Kjvhrzetafad85tr Tablets 1 tab every 6 hrs for 5 days Unknown 12/12/2023 - 01/2024 Immunizations CPT Code Status Date Vaccine Lot # [id number] Given 03/13/2023 Influenza Virus Vaccine, Quadrivalent (Cciiv4), Derived From Cell 89139 Given 02/08/2023 Tdap (Tetanus, diphtheria & acel. pertussis) Adacel or Boostrix 31961 Given 01/19/2021 Influenza Virus Vaccine, Quadrivalent (Cciiv4), Derived From Cell 48157 Given 06/02/2020 Moderna Sars-Co v-2 (Cov-19) vacc,100 mcg/ 0.5 mL 12Y+EMR Doc Only 15195 Given 05/05/2020 Moderna Sars-Co v-2 (Cov-19) vacc,100 mcg/ 0.5 mL 12Y+EMR Doc Only 93969 Given 01/27/2020 Influenza Virus Vaccine, Quadrivalent, Im Use 27936 Given 12/25/2018 Influenza Virus Vaccine, Quadrivalent, Im Use 04982 Given 01/31/2018 Tdap (Tetanus, diphtheria & acel. pertussis) Adacel or Boostrix 84767 Given 01/10/2018 Influenza Virus Vaccine, Quadrivalent, Im Use 18833 Given 01/21/2017 Influenza Virus Vaccine, Quadrivalent, Im Use 87377 Given 09/11/2016 MMR Vaccine 51895 Given 12/28/2009 Influenza Virus Vaccine, Quad, Preserv Free, 6Mon And Up 66247 Given 01/08/2008 Influenza Virus Vaccine, Quad, Preserv Free, 6Mon And Up 09371 Given 04/18/2002 Hep A Vac Adult Dose 62076 Given 04/18/2002 Typhoid Oral U-TD Given 04/09/2002 Td(Adult),Unspecified 87192 Given 10/16/1996 Hep B Adult Vac 82972 Given 10/16/1996 Hep B Adult Vac 80096 Given 03/24/1996 Hep B Adult Vac U-TD Given 07/03/1992 Td(Adult),Unspecified 72470 Given 02/27/1986 Poliovirus Oral-EMR Use O nly U-TD Given 02/27/1986 Td(Adult),Unspecified 70970 Given 06/22/1982 Poliovirus Oral-EMR Use O nly 77014 Given 06/22/1982 MMR Vaccine 74767 Given 06/22/1982 DTP Vac-EMR Use Only 62522 Given 1977 Poliovirus Oral-EMR Use O nly 31987 Given 1977 DTP Vac-EMR Use Only 97774 Given 1977 Poliovirus Oral-EMR Use O nly 98746 Given 1977 DTP Vac-EMR Use Only 62613 Refused 01/14/2024 Moderna Covid-19 Vaccine 50mcg Booster-EMR Doc Only 96559 Refused 10/08/2023 Moderna Covid-19 Vaccine 50mcg Booster-EMR Doc Only 24408 Refused 02/10/2022 Moderna Sars-Co v-2 (Covid-19) Vaccine, BiValent Booster 12y+ 15471 Refused 01/25/2021 Pneumococcal Vaccine/Pneu movax 23 25102 Refused 05/06/2019 Pneumococcal Vaccine/Pneu movax 23 13111 Refused 01/28/2018 Pneumococcal Vaccine/Pneu movax 23 Vital Signs Date Vital Result Comment 01/14/2024 9:32am BP Systolic 118 mmHg BP Diastolic 72 mmHg Body Temperature 98.5 F Heart Rate 78 /min Respiratory Rate 18 /min Weight 206.12 lb Weight 93.498 kg 10/08/2023 10:05am BP Systolic 116 mmHg BP Diastolic 68 mmHg Body Temperature 98.2 F Heart Rate 82 /min Respiratory Rate 18 /min Weight 211.25 lb Weight 95.823 kg Results Test Acquired Date Facility Test Result H/L Range N ote Lipid 01/10/2024 [facility] [address] [place], [place] [id number] [phone] Cholesterol 139 mg/dL 0-200 1 Triglyceride 117 mg/dL 0-150 2 HDLD 57 mg/dL See Comment 3 Measured LDL 81 mg/dL 0-130 4 Calc VLDL 23.4 mg/dL See Comment 5 Chol/HDL 2.4 RATIO See Comment 6 Non-HDL 82 mg/dL See Comment 7 Laboratory test finding 01/10/2024 [facility] [address] [place] [address] TSH 3.03 uIU/mL 0.50-6.00 CBC W/Diff 01/10/2024 [facility] [address] [place] [address] WBC 8.0 10^3/M3 3.1-9.2 RBC 4.34 10^6/M3 3.70-5.50 HGB 12.6 GR/DL 11.5-16.1 HCT 38.8 % 34.5-47.8 MCV 89.4 CUMICR 82.6-95.8 MCH 29.0 PICOGR 27.9-32.9 MCHC 32.5 % Low 32.6-35.4 RDW 16.1 % High 11.4-14.6 PLT 269 10^3/M3 140-350 MPV 8.4 CUMICR 7.0-10.6 %Neut 41.4 % 40.0-75.0 %Lymph 47.5 % High 17.0-45.0 %[place] 5.8 % 1.0-11.0 %Eos 4.8 % 0.0-6.0 %Baso 0.5 % 0.0-2.0 #Neut 3.3 10^3/M3 1.5-8.0 #Lymph 3.8 10^3/M3 High 0.8-3.2 #[place] 0.5 10^3/M3 0.0-0.8 #Eos 0.4 10^3/m3 0.0-0.4 #Baso 0.0 10^3/m3 0.0-0.2 Comp. Met 01/10/2024 [facility]. [address] [place] [address] [phone] Glucose 145 mg/dL High 70-110 BUN 16 mg/dL 6-25 Creatinine 0.6 mg/dL 0.5-1.2 Sodium 141 mEq/L 135-145 Potassium 4.2 mEq/L 3.5-5.0 Chloride 105 mEq/L 95-107 Co-2 23 mEq/L Low 24-31 Alk Phos 100 IU/L 43-122 Alt(SGPT) 21 IU/L 10-40 Ast(Sgot) 19 IU/L 3-42 T.Bilirubin 0.6 mg/dL 0.1-1.3 Calcium 9.5 mg/dL 8.5-10.6 Tot.Protein 6.6 g/dL 5.8-8.0 Albumin 4.4 g/dL 3.0-5.2 Globulin 2.2 g/dL 2.0-3.4 GFR 114 ML/MIN/1.7 3SQM >60 Hba1c 01/10/2024 [facility] [address] [place], [place] [id number] A1c 6.20 % 4.70-6.50 8 Lipid 10/04/2023 [facility] [address] [place], [place] [id number] Cholesterol 136 mg/dL 0-200 9 Triglyceride 74 mg/dL 0-150 10 HDLD 51 mg/dL See Comment 11 Measured LDL 77 mg/dL 0-130 12 Calc VLDL 14.8 mg/dL See Comment 13 Chol/HDL 2.7 RATIO See Comment 1 4 Non-HDL 85 mg/dL See Comment 15 Laboratory test finding 10/04/2023 [facility] [address] [place] [address] [phone] TSH 1.32 uIU/mL 0.50-6.00 CBC W/Diff 10/04/2023 [facility] [address] [place], [place] [id number] WBC 9.4 10^3/M3 High 3.1-9.2 RBC 4.78 10^6/M3 3.70-5.50 HGB 14.0 GR/DL 11.5-16.1 HCT 41.6 % 34.5-47.8 MCV 87.0 CUMICR 82.6-95.8 MCH 29.3 PICOGR 27.9-32.9 MCHC 33.7 % 32.6-35.4 RDW 13.9 % 11.4-14.6 PLT 254 10^3/M3 140-350 MPV 9.1 CUMICR 7.0-10.6 %Neut 44.4 % 40.0-75.0 %Lymph 44.0 % 17.0-45.0 %[place] 5.0 % 1.0-11.0 %Eos 5.6 % 0.0-6.0 %Baso 1.0 % 0.0-2.0 #Neut 4.2 10^3/M3 1.5-8.0 #Lymph 4.1 10^3/M3 High 0.8-3.2 #[place] 0.5 10^3/M3 0.0-0.8 #Eos 0.5 10^3/m3 High 0.0-0.4 #Baso 0.1 10^3/m3 0.0-0.2 Comp. Met 10/04/2023 [facility] [address] [place] [address] [phone] Glucose 145 mg/dL High 70-110 BUN 17 mg/dL 6-25 Creatinine 0.6 mg/dL 0.5-1.2 Sodium 141 mEq/L 135-145 Potassium 4.2 mEq/L 3.5-5.0 Chloride 106 mEq/L 95-107 Co-2 23 mEq/L Low 24-31 Alk Phos 62 IU/L 43-122 Alt(SGPT) 25 IU/L 10-40 Ast(Sgot) 21 IU/L 3-42 T.Bilirubin 0.8 mg/dL 0.1-1.3 Calcium 9.7 mg/dL 8.5-10.6 Tot.Protein 6.6 g/dL 5.8-8.0 Albumin 4.5 g/dL 3.0-5.2 Globulin 2.1 g/dL 2.0-3.4 GFR 114 ML/MIN/1.7 3SQM >60 Hba1c 10/04/2023 [facility] [address] [place] [address] A1c 6.90 % High 4.70-6.50 16 1 CHOLESTEROL Less than 200mg/dl Low risk 201-239 mg/dl Borderline risk Equal to or greater 240mg/dl High risk 2 TRIGLYCERIDES Less than 150mg/dl Normal 150-199mg/dl Borderline 200-499mg/dl High Greater than 500mg/dl Very High 3 HDL <40mg/dl Elevated Risk 41-59mg/dl Risk >=60mg/dl Least Risk 4 LDL <100mg/dl Optimal 100-129mg/dl Near Optimal 130-159mg/dl Borderline High 160-189mg/dl High >=190 Very High 5 VLDL Less than 30mg/dl Normal 6 CHOL/HDL <4.0 Optimal 4.0-5.0 Borderline >6.0 High Risk 7 NON-HDL 30mg/dl higher than LDL Target 8 MEAN GLUCOSE IN mg/d L/A1c% POOR CONTROL FAIR CONTROL GOOD CONTROL EXCELLENT CONTROL 360-14 210-9 180-8 120-6 330-13 150-7 90-5 300-12 270-11 240-10 9 CHOLESTEROL Less than 200mg/dl Low risk 201-239 mg/dl Borderline risk Equal to or greater 240mg/dl High risk 10 TRIGLYCERIDES Less than 150mg/dl Normal 150-199mg/dl Borderline 200-499mg/dl High Greater than 500mg/dl Very High 11 HDL <40mg/dl Elevated Risk 41-59mg/dl Risk >=60mg/dl Least Risk 12 LDL <100mg/dl Optimal 100-129mg/dl Near Optimal 130-159mg/dl Borderline High 160-189mg/dl High >=190 Very High 13 VLDL Less than 30mg/dl Normal 14 CHOL/HDL <4.0 Optimal 4.0-5.0 Borderline >6.0 High Risk 15 NON-HDL 30mg/dl higher than LDL Target 16 MEAN GLUCOSE IN mg/d L/A1c% POOR CONTROL FAIR CONTROL GOOD CONTROL EXCELLENT CONTROL 360-14 210-9 180-8 120-6 330-13 150-7 90-5 300-12 270-11 240-10 Procedures Date Code Description Status 01/14/2024 G2211 Continuation of care e/m vis it add on Completed 01/14/2024 3044F PVRP HGB-A1c <7.0% Completed 01/10/2024 05003 Venipuncture Routine Complet ed 12/14/2023 1111F D/C Medications Reconciled W/Current Medications In Outpt MR Completed 10/08/2023 G2211 Continuation of care e/m vis it add on Completed 10/08/2023 3044F PVRP HGB-A1c <7.0% Completed 10/04/2023 75910 Venipuncture Routine Complet ed 08/29/2023 2022F Dilated Retinal Eye Exam W/Interp By Opthalmologist/Twister Frame Tender Completed 10/03/2022 [id number] Mammogram Completed Medical Devices Description No Information Available Encounters Type Date Location Provider Dx Diagnosis Office Visit 01/14/2024 9:30a Phoebe Reyes PA-C E11.9 Type 2 diabet es mellitus without complications E78.2 Mixed hyperlipidemia Z96.642 Presence of left art ificial hip joint Office Visit [place] E11.65 Type 2 diabetes mellitus with hyperglycemia E78.2 Mixed hyperlipidemia M16.12 Unilateral primary o steoarthritis, left hip Assessments Date Code Description Provider 01/14/2024 E11.9 Type 2 diabetes mellitus without complications Иван Reyes PA-C 01/14/2024 E78.2 Mixed hyperlipidemia Иван Reyes PA-C 01/14/2024 Z96.642 Presence of left artificial hip joint Иван Reyes PA-C 01/10/2024 E78.2 Mixed hyperlipidemia Cordell Akers JR, DO 01/10/2024 E78.2 Mixed hyperlipidemia [place] 01/10/2024 E11.65 Type 2 diabetes mellitus with hyperglycemia Cordell Akers JR, DO 01/10/2024 E11.65 Type 2 diabetes mellitus with hyperglycemia Lab - [place] 12/14/2023 M16.12 Unilateral prima ry osteoarthritis, left hip Иван Reyes PA-C 10/08/2023 E11.65 Type 2 diabetes mellitus with hyperglycemia Иван Reyes PA-C 10/08/2023 E78.2 Mixed hyperlipidemia Иван Reyes PA-C 10/08/2023 M16.12 Unilateral prima ry osteoarthritis, left hip Иван Reyes PA-C 10/04/2023 E78.2 Mixed hyperlipidemia Cordell Akers JR, DO 10/04/2023 E78.2 [facility]/04/2023 E11.65 Type 2 diabetes mellitus with hyperglycemia Cordell Akers JR, DO 10/04/2023 E11.65 Type 2 diabetes mellitus with hyperglycemia Lab - [place] 08/29/2023 E11.65 Type 2 diabetes mellitus with hyperglycemia Иван Reyes PA-C Plan of Treatment Future Appointment(s):* 05/27/2024 9:30 am - Иван Reyes PA-C at [place] * 05/19/2024 7:45 am - [facility] [place] 01/14/2024 - Иван Reyes PA-C* E11.9 Type 2 diabetes mellitus without complications * E78.2 Mixed hyperlipidemia * Z96.642 Presence of left artificial hip joint * All* New Medication:* Amoxicillin 500 mg - take 4 caps po 1 hr prior to dental work * Comments:* Verbalized understanding of A&P. * Follow up:* Return in 4 months for fasting labs to include lipids, tsh, cbc, cmp, A1c and ov 1 week later to discuss Functional Status Description No Information Available Mental Status Description No Information Available Referrals Description No Information Available
[2024-01-23] MEDS: MULTIVITAMIN TAB PO SCH (09:36)
[2024-01-23] MEDS: TAMSULOSIN HCL 0.4 MG CAP PO SCH (09:37)
[2024-01-23] MEDS: MAGNESIUM OXIDE 400 MG TAB PO SCH (09:37)
[2024-01-23 09:46] LABS: Estimated Average Glucose 117 mg/dl; Hemoglobin A1C 5.7 % (4.5-5.6)
[2024-01-23] MEDS ORDERED: fentaNYL citrate PF 100 MCG/2 ML VIAL IV PRN (11:42)
[2024-01-23] MEDS ORDERED: ePHEDrine sulfate 50 MG/ML AMP IV PRN (11:42)
[2024-01-23] MEDS ORDERED: ATROPINE SULFATE 0.1 MG/ML 10ML SYR IV PRN (11:42)
[2024-01-23] MEDS ORDERED: PROMETHAZINE HCL 6.25 MG in SODIUM CHLORIDE 0.9% 50 ML IV PRN (11:42)
--- NOTE | 2024-01-23 11:42 | Anesthesiology Consultation ---
Date of Service January 23, 2024 History Surgery Operation Date: 01/23/24 09:05 Proposed Procedures p Cystoscopy, Bilateral Retrograde Pyelogram, Bilateral Stent Placement - Puma Santiago MD Height/Weight Height: 5 ft 9 in Weight: 93.4 kg Allergies Allergy/AdvReac Type Severity Reaction Status Date / Time No Known Drug Allergies Allergy . Verified 01/23/24 04:21 Medications Home Medications Medication Instructions Recorded Confirmed Last Taken metformin 500 mg tablet 1,000 mg PO BID 05/01/22 01/22/24 12/10/23 23:30 atorvastatin 10 mg tablet 10 mg PO QPM 05/10/22 01/22/24 12/10/23 23:30 cyclobenzaprine 5 mg tablet 5 mg PO TID PRN prn 05/12/22 01/22/24 Unknown lancets 33 gauge (TwoFishTouch Delica #100 ea 05/12/22 09/21/23 Unknown Plus Lancet) blood sugar diagnostic (TwoFishTouch #50 ea 05/15/22 09/21/23 Unknown Verio test strips) TwoFishTouch Verio Reflect Start #1 ea 05/18/22 09/21/23 Unknown (blood-glucose meter) semaglutide 2 mg/dose (8 mg/3 mL) 2 mg (0.75 mL) subcut Q7D #3 mL 05/14/23 01/22/24 11/29/23 10:00 subcutaneous pen injector blood-glucose sensor (FreeStyle #2 ea 06/08/23 09/21/23 Unknown Natalia 3 Sensor device) Wheeled Walker #1 ea 08/03/23 09/21/23 Unknown multivitamin 1 tab PO QAM 11/15/23 01/22/24 12/10/23 08:30 omeprazole 20 mg capsule,delayed 20 mg PO DAILY PRN prn 11/15/23 01/22/24 Unknown release aspirin 81 mg tablet,delayed 81 mg PO BID 45 days #90 tabs 12/08/23 01/22/24 Unknown release (Denise Low Dose Aspirin) ketorolac 10 mg tablet 10 mg PO Q6 pain 5 days #20 tabs 12/08/23 01/22/24 Unknown ondansetron 4 mg disintegrating 4 mg PO Q8 PRN nausea #20 tabs 12/08/23 01/22/24 Unknown tablet acetaminophen 500 mg tablet 1,000 mg PO TID PRN pain 01/22/24 01/22/24 Unknown (Tylenol Extra Strength) sennosides 8.6 mg tablet (Senokot) See Rx Instructions .Route 01/22/24 01/22/24 Unknown .COMPLEX PRN prevent constipation Active Medications Generic Name Dose Route Start Last Admin Trade Name Freq PRN Reason Stop Dose Admin Hydromorphone HCl 0.5 mg 01/23/24 04:05 01/23/24 04:53 Hydromorphone Inj 0.5 Mg/0.5 Ml Syr IV 02/06/24 04:04 0.5 mg Q4H PRN Administration Severe Pain (Scale 7, 8, 9,10) Sodium Chloride 1,000 mls @ 125 mls/hr 01/23/24 04:05 01/23/24 04:53 Nss IV 02/22/24 04:04 125 mls/hr .Q8H EDDA Administration Insulin Aspart 0 units 01/23/24 06:00 01/23/24 05:11 Insulin Aspart Per Unit Charge SC 02/22/24 05:59 Not Given Q6 EDDA Ketorolac Tromethamine 15 mg 01/23/24 04:05 01/23/24 05:44 Ketorolac Tromethamine 15 Mg/Ml Vial IV 01/28/24 04:04 15 mg Q6H PRN Administration Pain Magnesium Oxide 400 mg 01/23/24 09:00 01/23/24 09:37 Magnesium Oxide 400 Mg Tab PO 02/22/24 08:59 400 mg BID EDDA Administration Multivitamins 1 tab 01/23/24 09:00 01/23/24 09:36 Multivitamin Tab PO 02/22/24 08:59 1 tab QAM EDDA Administration Tamsulosin HCl 0.4 mg 01/23/24 09:00 01/23/24 09:37 Tamsulosin Hcl 0.4 Mg Cap PO 02/22/24 08:59 0.4 mg QAM EDDA Administration Past Medical History Medical History Encounter for pre-operative examination Arthritis of left hip GERD (gastroesophageal reflux disease) intermittent, stable per pt-omeprazole prn White coat syndrome with high blood pressure but without hypertension Chronic low back pain stable per pt Obesity (BMI 30.0-34.9) History of anesthesia reaction difficulty waking up after hand surgery in and sats low at that time; patient states that was told first attempt was not successful and medication entered body, second attempt was only beneficial on one side-O2 sats dropped needing to be placed in recovery unit; she is unsure if supplemental oxygen was administered Mixed hyperlipidemia Diabetes mellitus, type II NIDDM Unilateral primary osteoarthritis, left hip Past Family History Family History Father Melanoma Cirrhosis with alcoholism Mother Asthma Hypertension COPD (chronic obstructive pulmonary disease) Grandmother (Maternal) Breast cancer Alcoholism Grandmother (Paternal) Arthritis Grandfather (Paternal) Cancer Family/Other History of heart attack Past Surgical History Surgical History History of tubal ligation H/O section (~1999) History of endometrial ablation (~07/03/17) Social History Smoking Status: Never smoker Do You Dip or Chew Tobacco: No Hx Alcohol Use: Yes Alcohol type: beer alcohol intake frequency: holidays/special occasions only Hx Substance Use: No substance use type: does not use Physical Exam Vital Signs Last Vital Signs Temp 36.7 C 01/23/24 07:10 Pulse 71 01/23/24 07:10 Resp 20 01/23/24 07:10 BP 133/72 01/23/24 07:10 Pulse Ox 98 01/23/24 07:10 O2 Del Method Room Air 01/23/24 07:10 Testing Laboratory Results 01/23/24 07:06 01/23/24 07:06 PT 10.3 Seconds (9.0-12.0) 01/22/24 19:39 INR 0.9 (0.9-1.1) 01/22/24 19:39 APTT 26 Seconds (21-31) 01/22/24 19:39 Hemoglobin A1c 5.7 % (4.5-5.6) H 01/23/24 07:06 Urine Color [place] 01/22/24 20:15 Urine Appearance Cloudy (Clear) A 01/22/24 20:15 Urine pH 5.5 (4.5-7.5) 01/22/24 20:15 Ur Specific [place] 1.020 (1.000-1.030) 01/22/24 20:15 Urine Protein 1+ (Negative) H 01/22/24 20:15 Urine Glucose (UA) Trace (Negative) H 01/22/24 20:15 Urine Ketones Trace (Negative) H 01/22/24 20:15 Urine Nitrite Negative (Negative) 01/22/24 20:15 Ur Leukocyte Esterase 1+ (Negative) H 01/22/24 20:15 Urine WBC (Auto) 11-20 /hpf (0-5) H 01/22/24 20:15 Urine RBC (Auto) >20 /hpf (0-2) H 01/22/24 20:15 U Hyaline Cast (Auto) 0-2 /lpf (0-2) 01/22/24 20:15 U Epithel Cells (Auto) 0-2 /hpf (0-2) 01/22/24 20:15 Urine Bacteria (Auto) None Seen (None Seen) 01/22/24 20:15 01/23/24 01/23/24 11:35 04:11 POC Glucose 117 H 128 H
[2024-01-23] MEDS ORDERED: MIDAZOLAM HCL 1 MG/ML 2ML VIAL ONE (13:00)
[2024-01-23] MEDS ORDERED: PROPOFOL IV EMULSION 10 MG/ML 20 ML VIAL IV ONE (13:00)
[2024-01-23] MEDS ORDERED: SUCCINYLCHOLINE CHLORIDE 20 MG/ML 10 ML VIAL IV ONE (13:00)
[2024-01-23] MEDS ORDERED: LIDOCAINE 2% 2 ML VIAL/AMP(20MG/ML) INFIL ONE (13:00)
[2024-01-23] MEDS ORDERED: fentaNYL citrate PF 100 MCG/2 ML VIAL ONE (13:00)
[2024-01-23] MEDS ORDERED: ROCURONIUM BROMIDE 10 MG/ML 5 ML VIAL IV ONE (13:00)
[2024-01-23] MEDS: ceFAZolin 2000MG 2,000 MG/15 ML SYR IV ONE (13:11)
[2024-01-23] MEDS: ceFAZolin 2,000 MG/15 ML IV PUSH IV ONE (13:42)
--- NOTE | 2024-01-23 13:45 | Operative Report ---
PG Post Operative Report Pre & Post Diagnosis Operation Date: 01/23/24 09:05 Pre-Op Diagnosis: Calculus of Bilateral Ureters Post-Op Diagnosis: Calculus of Bilateral Ureters I identified the patient and participated in the time-out.: Yes Procedure Operation Date: 01/23/24 09:05 Actual Procedures p Cystoscopy, Bilateral Retrograde Pyelogram with radiograph interpretation, Bilateral Stent Placement(Bilateral) - Puma Santiago MD Surgeon Puma Santiago MD Trench Digger Helper None Estimated Blood Loss 0 Findings See Below Bilateral stents in appropriate position. Moderate right hydronephrosis, mild left hydronephrosis. Specimens None Drains Bilateral 6 Polish by 26 cm ureteral stents Anesthesia Type General Complications none Indications 48-year-old female with bilateral obstructing ureteral calculi Description of Procedure After informed consent was obtained, the patient was transported operative suite. General anesthesia was induced. The patient was placed in dorsolithotomy position prepped and draped in a sterile fashion. They received preoperative MAC for antibiotic prophylaxis. An appropriate surgical timeout was performed. A 22 Polish rigid scope was inserted per urethra into the bladder. Browne cystoscopy revealed no stones or lesions. I turned my attention the right ureteral orifice and intubated this with a 5 Polish open-ended catheter. A right retrograde pyelogram was shot which showed moderate hydronephrosis. A sensor wire was advanced into the kidney and confirmed fluoroscopically. Initially attempted to place a 6 Polish by 24 cm ureteral stent but this was too short so I removed this. A 6 Polish by 26 cm right ureteral stent was deployed with a good proximal coil in the renal pelvis and a good distal coil noted in the bladder, confirmed fluoroscopically and under direct visualization, respectively. I turned my attention the left ureteral orifice and intubated this with a 5 Polish open-ended catheter. A left retrograde pyelogram was shot which showed mild hydronephrosis. A sensor wire was advanced into the kidney and confirmed fluoroscopically. A 6 Polish by 26 cm left ureteral stent was deployed with a good proximal coil in the renal pelvis and a good distal coil noted in the bladder. These were confirmed fluoroscopically and under direct visualization, respectively. The bladder was emptied and the scope was removed. This concluded the end of the case. All counts were correct at the end of the case. I was present, scrubbed, and actively participated for the entirety of the procedure. I attest to the content of the Intraoperative Record and any orders documented therein. Any exceptions are noted below.
[2024-01-23] MEDS: DIATRIZOATE MEGLUMINE 30% 100ML VIAL INSTIL ONE (13:52)
--- NOTE | 2024-01-23 14:23 | Fluoroscopy Report ---
FL retrograde includes kub CLINICAL HISTORY: BILATERAL COMPARISON STUDY: CT of the abdomen and pelvis January 22, 2024 FLUOROSCOPY TIME: 32 seconds. Ka, r: 8.35 mGy FLUOROSCOPIC IMAGES: 4 FINDINGS: Fluoroscopy was provided during bilateral retrograde pyelograms with bilateral stent insert ion. Left hydronephrosis is noted. There is minimal opacification of the right collecting system. IMPRESSION: Fluoroscopy provided during bilateral retrograde pyelograms and bilateral ureteral stent insertion. ACT 112: Negative or not required by law. Electronically signed by: Ignacio Cardona M.D. 01/23/2024 2:21 PM
[2024-01-23 14:29] VITALS: TEMP 98.2
--- NOTE | 2024-01-23 14:35 | Anesthesiology Progress Note ---
Date of Service January 23, 2024 Anesthesia Post Procedure Vital Signs Vital Signs: Temp Pulse Pulse Pulse Resp BP BP 01/23/24 14:25 36.8 C 92 H 16 138/82 01/23/24 14:15 91 H 14 129/76 01/23/24 14:05 92 H 15 131/76 01/23/24 13:57 36.4 C L 99 H 19 130/79 01/23/24 11:40 36.7 C 83 20 143/92 H 01/23/24 07:10 36.7 C 71 20 133/72 01/23/24 04:25 01/23/24 04:25 37.0 C 20 155/90 H 01/23/24 02:03 80 18 147/95 H 01/22/24 23:57 82 17 151/98 H 01/22/24 23:44 81 01/22/24 22:00 86 25 H 184/105 H 01/22/24 21:00 88 22 173/98 H 01/22/24 20:00 85 20 191/117 H 01/22/24 19:48 95 H 01/22/24 19:44 01/22/24 19:31 36.4 C L 95 H 20 180/117 H Pulse Ox O2 Del Method O2 Flow Rate 01/23/24 14:25 93 Room Air 01/23/24 14:15 97 Oxymask 2 01/23/24 14:05 98 Oxymask 4 01/23/24 13:57 94 Oxymask 10 01/23/24 11:40 96 Room Air 01/23/24 07:10 98 Room Air 01/23/24 04:25 Room Air 01/23/24 04:25 96 Room Air 01/23/24 02:03 98 01/22/24 23:57 95 01/22/24 23:44 01/22/24 22:00 97 01/22/24 21:00 97 01/22/24 20:00 96 01/22/24 19:48 01/22/24 19:44 100 Room Air 01/22/24 19:31 100 Room Air Pain Intensity Right Flank: Pain Intensity: 6 Transfer of Care Handoff Completed per policy Notes Mental Status: alert / awake / arousable and participated in evaluation Nausea / Vomiting: adequately controlled Pain: adequately controlled Airway Patency, RR, SpO2: stable & adequate BP & HR: stable & adequate Hydration State: stable & adequate Anesthetic Complications: no major complications apparent and Pt Satisfied with anesthetic care
--- NOTE | 2024-01-23 15:24 | Hospitalist Progress Note ---
Date of Service January 23, 2024 Assessment & Plan (1) Calculus of both ureters: Plan: per admitting service notes with addendum: 48-year-old female with past medical history significant for type 2 diabetes, status post left hip replacement 6 weeks ago comes because of right flank pain and found to have kidney stones. Patient says she has history of kidney stones in the past but passed them by herself and no intervention needed in the past. Today in the afternoon she noticed pain in the right flank region which came down to the groin region by the evening and as it was not improving came to the ER. In the ER she noticed some blood in the urine. She had pain medications in ER which seems not helping much per patient. Had nausea and vomited in the ER. Zofran helped her. She was constipated post hip surgery but currently with bowel regimen bowels are moving okay. Denies any blood in the stools. Denies any chest pain or shortness of breath. No cough. No fever. No runny nose or sore throat or cough. Currently resting comfortably and hemodynamically stable. She was on aspirin for DVT prophylaxis after hip surgery but states she stopped it yesterday after 6 weeks of surgery. Bilateral Ureteral Calculi Came with the right flank and groin pain CT scan showin. 3 mm stone in the distal right ureter. Mild right hydroureteronephrosis. Prominent right perinephric fat stranding. Additional right renal stones. 2. 1.3 cm stone in the proximal left ureter. Mild left hydronephrosis. Small left renal stone. 01/22 s/p Cystoscopy, Bilateral Retrograde Pyelogram, Bilateral Stent Placement by Dr. Puma Santiago cleared for discharge from Urology standpoint Oxybutynin, Flomax, PRN Oxycodone ordered by Urology SVC ff up with Urologist in 1 week for stent removal Possible UTI Rocephin given Will follow cultures d/c on Cefdinir BID until culture finalize Diabetes a1c 5.7 continue Metformin Hyperlipidemia Statin Constipation Stool softeners DVT prophylaxis SCDs for now Disposition d/c home ff up with Urologist in 1 week Admission and Anticipated Discharge Date Admission Date: January 23, 2024 Subjective ff up for BL ureteral stones, s/p stent placement, etc seen resting in bed, comfortable states pain is better overall after stent placement no problems voiding no nausea, fever/chills, dizziness no other new symptoms would like to go home today if possible Review of Systems Review of Systems: all noted and negative except for above Physical Exam Physical Exam: General- oriented x 3, not in distress, speaks in sentences with no effort or accessory muscle use Eyes- anicteric Neck- no JVD Lungs- clear breath sounds bilaterally, no rales/wheezes Heart- normal rate, regular rhythm; no murmurs Abdomen- normal bowel sounds, nondistended, soft, nontender no CVA tenderness Extremities- no pretibial edema, no calf tenderness Neuro- alert, oriented x 3; no gross focal neurologic deficits Skin- warm & dry Results & Data Results & Data Vital Signs (Past 12 Hours) Vital Signs Temp Pulse Pulse Resp BP Pulse Ox O2 Del Method 01/23/24 14:40 36.8 C 81 20 138/75 98 Room Air 01/23/24 14:25 36.8 C 92 H 16 138/82 93 Room Air 01/23/24 14:15 91 H 14 129/76 97 Oxymask 01/23/24 14:05 92 H 15 131/76 98 Oxymask 01/23/24 13:57 36.4 C L 99 H 19 130/79 94 Oxymask 01/23/24 11:40 36.7 C 83 20 143/92 H 96 Room Air 01/23/24 07:10 36.7 C 71 20 133/72 98 Room Air 01/23/24 04:25 Room Air 01/23/24 04:25 37.0 C 20 155/90 H 96 Room Air O2 Flow Rate 01/23/24 14:40 01/23/24 14:25 01/23/24 14:15 2 01/23/24 14:05 4 01/23/24 13:57 10 01/23/24 11:40 01/23/24 07:10 01/23/24 04:25 01/23/24 04:25 all noted and reviewed including below
--- NOTE | 2024-01-23 15:38 | Discharge Summary ---
Discharge Summary Date of Service January 23, 2024 Principal Dx & Hospital Course #1 = Principal Diagnosis (1) Calculus of both ureters: per admitting service notes with addendum: 48-year-old female with past medical history significant for type 2 diabetes, status post left hip replacement 6 weeks ago comes because of right flank pain and found to have kidney stones. Patient says she has history of kidney stones in the past but passed them by herself and no intervention needed in the past. Today in the afternoon she noticed pain in the right flank region which came down to the groin region by the evening and as it was not improving came to the ER. In the ER she noticed some blood in the urine. She had pain medications in ER which seems not helping much per patient. Had nausea and vomited in the ER. Zofran helped her. She was constipated post hip surgery but currently with bowel regimen bowels are moving okay. Denies any blood in the stools. Denies any chest pain or shortness of breath. No cough. No fever. No runny nose or sore throat or cough. Currently resting comfortably and hemodynamically stable. She was on aspirin for DVT prophylaxis after hip surgery but states she stopped it yesterday after 6 weeks of surgery. Bilateral Ureteral Calculi Came with the right flank and groin pain CT scan showin. 3 mm stone in the distal right ureter. Mild right hydroureteronephrosis. Prominent right perinephric fat stranding. Additional right renal stones. 2. 1.3 cm stone in the proximal left ureter. Mild left hydronephrosis. Small left renal stone. 01/22 s/p Cystoscopy, Bilateral Retrograde Pyelogram, Bilateral Stent Placement by Dr. Puma Santiago cleared for discharge from Urology standpoint Oxybutynin, Flomax, PRN Oxycodone ordered by Urology C ff up with Urologist in 1 week for stent removal Possible UTI Rocephin given Will follow cultures d/c on Cefdinir BID until culture finalize Diabetes a1c 5.7 continue Metformin Hyperlipidemia Statin Constipation Stool softeners DVT prophylaxis SCDs for now Disposition d/c home ff up with Urologist in 1 week Updated Medication List Medication Instructions Recorded Confirmed Type metformin 500 mg tablet 1,000 mg PO BID 05/01/22 01/22/24 History atorvastatin 10 mg tablet 10 mg PO QPM 05/10/22 01/22/24 History cyclobenzaprine 5 mg tablet 5 mg PO TID PRN prn 05/12/22 01/22/24 History lancets 33 gauge ([facility]a 05/12/22 09/21/23 Rx Plus Lancet) blood sugar diagnostic ([facility] ea 05/15/22 09/21/23 Rx Verio test strips) Oneuch Verio Reflect Start #1 ea 05/18/22 09/21/23 Rx (blood-glucose meter) semaglutide 2 mg/dose (8 mg/3 mL) 2 mg (0.75 mL) subcut Q7D #3 mL 05/14/23 01/22/24 Rx subcutaneous pen injector blood-glucose sensor (FreeStyle #2 ea 06/08/23 09/21/23 Rx Natalia 3 Sensor device) Evonne Walker #1 ea 08/03/23 09/21/23 Rx multivitamin 1 tab PO QAM 11/15/23 01/22/24 History omeprazole 20 mg capsule,delayed 20 mg PO DAILY PRN prn 11/15/23 01/22/24 History release aspirin 81 mg tablet,delayed 81 mg PO BID 45 days #90 tabs 12/08/23 01/22/24 Rx release (Denise Low Dose Aspirin) ketorolac 10 mg tablet 10 mg PO Q6 pain 5 days #20 tabs 12/08/23 01/22/24 Rx ondansetron 4 mg disintegrating 4 mg PO Q8 PRN nausea #20 tabs 12/08/23 01/22/24 Rx tablet acetaminophen 500 mg tablet 1,000 mg PO TID PRN pain 01/22/24 01/22/24 History (Tylenol Extra Strength) sennosides 8.6 mg tablet (Senokot) See Rx Instructions .Route 01/22/24 01/22/24 History .COMPLEX PRN prevent constipation cefdinir 300 mg capsule 300 mg PO BID 7 days #14 caps 01/23/24 Rx oxybutynin chloride 5 mg 5 mg PO DAILY #20 tabs 01/23/24 Rx tablet,extended release 24 hr oxycodone 5 mg tablet 5 mg PO Q6H PRN pain #10 tabs 01/23/24 Rx tamsulosin 0.4 mg capsule (Flomax) 0.4 mg PO DAILY #20 caps 01/23/24 Rx Hospital Stay Data Consultations 01/22/24 21:59 ED Decision to Admit Stat 01/23/24 08:00 Consult Urology Routine Procedures Performed Operation Date: 01/23/24 09:05 Actual Procedures p Cystoscopy, Bilateral Retrograde Pyelogram, Bilateral Stent Placement(Bilateral) - Puma Santiago MD Diagnostic Imagining Performed 01/22/24 19:37 CT abd pelvis wo con Stat 01/23/24 09:05 FL retrograde includes kub Routine Pending Results Patient Have Any Pending Studies at Discharge: Yes Discharge Instructions Given to Patient (Per Discharging Provider) Take Tylenol and ibuprofen as needed for pain. Oxycodone for breakthrough pain. Continue taking Flomax as this can help with stent discomfort. Oxybutynin as needed, however this can cause dry mouth, constipation and difficulty urinating so only use when necessary. If you are not having bother from the stent, you do not need to take any medications. MiraLAX [id number] as needed for constipation. - Resume your previous diet. It is normal to have blood in his urine while the stent is in place. The more activity performed, the bloodier your urine will be. This is okay as long as you are able to urinate. You will be called regarding a follow-up appointment to determine stone treatment. Call the office at [phone] earlier with fevers or uncontrolled pain.
[2024-01-23 16:58] VITALS: BP 153/88; PULSE 94; RESP 18; O2SAT 97
[2024-01-23] MEDS: ACETAMINOPHEN 325 MG TAB PO PRN (17:52)
[2024-01-23] MEDS ORDERED: DOCUSATE SODIUM/SENNA 50/8.6MG TAB PO SCH (21:00)
[2024-01-23] MEDS ORDERED: ATORVASTATIN 10 MG TAB PO SCH (21:00)
[2024-01-23] MEDS ORDERED: cefTRIAXone SODIUM 2,000 MG/50 ML BAG IV SCH (22:00)
== END 2024-01-23 19:10 | disposition home or self-care (01) | DRG 661 ==
LOC: ED 19:21 → SUATTDRO 01-23 01:54 → 3E 01-23 01:54

== ENCOUNTER 2024-12-02 04:56 | Inpatient (IN) ==
[2024-12-02] MEDS: ONDANSETRON INJ 2 MG/ML 2 ML VIAL IV STA (05:08)
[2024-12-02] MEDS: KETOROLAC 30 MG/ML VIAL IV STA (05:09)
[2024-12-02] MEDS: SODIUM CHLORIDE 0.9% 1,000 ML IV ONE (05:10)
[2024-12-02] MEDS: MoRPHine SULFATE 4 MG/ML 1 ML CARP\\VIAL IV PRN (05:10)
[2024-12-02 05:22] LABS: Hematocrit (blood only) 44.6 % (37.0-47.0); Hemoglobin 15.0 g/dl (12.0-16.0); Immature Granulocytes # (auto) 0.03 K/uL (0.01-0.20); Immature Granulocytes % (auto) 0.3 %; Mean Corpuscular Hemoglobin 28.5 pg (25.0-34.0); Mean Corpuscular Volume 84.8 fL (80.0-100.0); Platelet Count 238 K/uL (130-400); RDW Standard Deviation 40.3 fL (36.4-46.3); Red Blood Count 5.26 M/uL (4.20-5.40); White Blood Count 9.65 K/ul (4.8-10.8)
[2024-12-02 05:36] LABS: Pregnancy Test, Serum Negative (Negative)
[2024-12-02 05:40] LABS: Alanine Aminotransferase 42.0 U/L (7-52); Albumin Globulin Ratio 1.6 (0.9-2); Alkaline Phosphatase 99.0 U/L (34-104); Anion Gap 9.0 (3-11); Bilirubin,Total 0.7 mg/dl (0.2-1.0); Blood Urea Nitrogen 19.0 mg/dl (6-23); Calcium 10.1 mg/dl (8.6-10.3); Carbon Dioxide 26.0 mmol/L (21-32); Chloride 104.0 mmol/L (98-107); Creatinine Clr Calc Pharmacy 93.0 ml/min; Globulin 3.0 gm/dl (2.5-4.0); Glucose 221.0 mg/dl (70-99(Fasting)); Lipase 130.0 U/L (11-82); Potassium 3.7 mmol/L (3.5-5.1); Sodium 139.0 mmol/L (136-145); Total Protein 7.8 gm/dl (6.0-8.3)
--- NOTE | 2024-12-02 06:08 | Emergency Department Note ---
History of Present Illness General Chief complaint: Kidney Stone Stated complaint: KIDNEY STONE? Time Seen by Provider: 12/02/24 05:01 History of Present Illness Maximum Pain Intensity: 8 This is a 49-year-old female presenting to the emergency department for evaluation of left flank pain that began roughly 2 AM on 12/02/2024. Patient does have a history of kidney stones, and she states the pain awoke her from sleep. She was not able to get comfortable at home and did take Zofran to help with nausea. The patient has not had fevers or chills. No chance of . She rates her discomfort an 11/16. Home Medications Medication Instructions Recorded Confirmed Type metformin 500 mg tablet 1,000 mg PO BID 05/01/22 12/02/24 History atorvastatin 10 mg tablet 10 mg PO QPM 05/10/22 12/02/24 History lancets 33 gauge (EnbaseTouch Delica #100 ea 05/12/22 12/02/24 Rx Plus Lancet) blood sugar diagnostic (EnbaseTouch #50 ea 05/15/22 12/02/24 Rx Verio test strips) OneTouch Verio Reflect Start #1 ea 05/18/22 12/02/24 Rx (blood-glucose meter) acetaminophen 500 mg tablet 1,000 mg PO TID PRN pain 01/22/24 12/02/24 History (Tylenol Extra Strength) sennosides 8.6 mg tablet (Senokot) 8.6 mg PO HS PRN prevent 01/22/24 12/02/24 History constipation ondansetron 4 mg disintegrating 4 mg PO Q8H PRN nausea 01/28/24 12/02/24 History tablet blood-glucose sensor (FreeStyle #2 ea 11/11/24 12/02/24 Rx Natalia 3 Plus Sensor device) tirzepatide 7.5 mg/0.5 mL 7.5 mg (0.5 mL) subcut Q7D #2 mL 11/11/24 12/02/24 Rx subcutaneous pen injector cyclobenzaprine 10 mg tablet 10 mg PO HS PRN Pain 12/02/24 12/02/24 History diphenhydramine 25 1 tab PO HS PRN Sleep/Pain 12/02/24 12/02/24 History mg-acetaminophen 500 mg tablet (Tylenol PM Extra Strength) Allergies Allergy/AdvReac Type Severity Reaction Status Date / Time No Known Drug Allergies Allergy . Verified 12/02/24 08:07 Past Med/Surg History Problem List (Updated 12/02/24 @ 21:15 by Branden Cruz PA-C) Abnormal urinalysis Hydronephrosis with obstructing calculus (Acute) Uncontrolled type 2 diabetes mellitus with hyperglycemia Hydronephrosis Renal colic Leukocytosis (Acute) Calculus of both ureters (Acute) Abdominal wall pain in right flank (Acute) Status post left hip replacement Obesity, diabetes, and hypertension syndrome Mixed hyperlipidemia Medical History Hx of fracture of nose (2018) set by dr. amos Hx of renal calculi GERD (gastroesophageal reflux disease) intermittent, stable per pt-omeprazole prn White coat syndrome with high blood pressure but without hypertension Chronic low back pain stable per pt since hip replacement Obesity (BMI 30.0-34.9) History of anesthesia reaction - difficulty waking up after hand surgery in and sats low at that time; patient states that was told first attempt was not successful and medication entered body, second attempt was only beneficial on one side-O2 sats dropped needing to be placed in recovery unit; she is unsure if supplemental oxygen was administered - no issues noted with left TKA (12/11/23) under [facility], no issues with cysto/stent placement (01/23/24) under [place] Mixed hyperlipidemia Diabetes mellitus, type II NIDDM Surgical History Hx of myomectomy (2011) History of open reduction and internal fixation (ORIF) procedure (1997) 1997, right hand>pins removed S/P cystoscopy with ureteral stent placement (2023) x 2 Status post left hip replacement (12/11/23) History of tubal ligation H/O section (~1999) History of endometrial ablation (~07/03/17) Family History Father Melanoma Cirrhosis with alcoholism Mother Asthma Hypertension COPD (chronic obstructive pulmonary disease) Grandmother (Maternal) Breast cancer Alcoholism Grandmother (Paternal) Arthritis Grandfather (Paternal) Cancer Family/Other History of heart attack Social History Smoking Status: Never smoker Second Hand Exposure: No; Do You Dip or Chew Tobacco: No; Hx Alcohol Use: Yes Alcohol type: beer Alcohol Intake Frequency Comment: Rarely Hx Substance Use: No Preferred Language: P[place] Communication Ability: Effective Griddle Attendant Required: No Beliefs That Will Affect Care: None Current Living Situation: Spouse and Family Other Information That Helps Us Care for You: No Feels Safe at Home: Yes Safety Concerns: Feels Safe At This Time Assistive Devices: Glasses Review of Systems A total of 10 systems reviewed and were otherwise negative Physical Exam Vital Signs Vital Signs - 24 hr 12/02/24 04:59 12/02/24 05:17 12/02/24 05:18 Temperature 36.5 C Temperature Source Temporal Artery Scan Pulse Rate 99 H 86 88 Pulse Rate [Apical] Pulse Rate from SpO2 Sensor 89 Respiratory Rate 20 15 Respiratory Effort / Characteristics Respiratory Depth Normal Blood Pressure 183/118 H 179/112 H Blood Pressure [Right Arm] Blood Pressure Mean 139 134 Blood Pressure Mean [Right Arm] Blood Pressure Position [Right Arm] Pulse Oximetry 99 97 Oxygen Delivery Method Room Air Sepsis Recent Fever Within 48 Hours No Sepsis New/Unexplained Change in Mental Status N/A Sepsis Action Taken by Nursing No Action Required 12/02/24 05:40 12/02/24 06:00 12/02/24 06:00 Temperature Temperature Source Pulse Rate 93 H 92 H 92 H Pulse Rate [Apical] Pulse Rate from SpO2 Sensor Respiratory Rate 19 18 18 Respiratory Effort / Characteristics Respiratory Depth Blood Pressure 176/114 H 163/95 H 163/95 H Blood Pressure [Right Arm] Blood Pressure Mean 130 134 134 Blood Pressure Mean [Right Arm] Blood Pressure Position [Right Arm] Pulse Oximetry 99 98 98 Oxygen Delivery Method Room Air Room Air Room Air Sepsis Recent Fever Within 48 Hours Sepsis New/Unexplained Change in Mental Status Sepsis Action Taken by Nursing 12/02/24 06:30 12/02/24 07:00 Temperature Temperature Source Pulse Rate 94 H Pulse Rate [Apical] 90 Pulse Rate from SpO2 Sensor Respiratory Rate 15 17 Respiratory Effort / Characteristics Non-Labored Spontaneous Respiratory Depth Normal Blood Pressure 160/98 H Blood Pressure [Right Arm] 156/99 H Blood Pressure Mean 114 Blood Pressure Mean [Right Arm] 118 Blood Pressure Position [Right Arm] Semi-fowlers Pulse Oximetry 98 93 Oxygen Delivery Method Room Air Room Air Sepsis Recent Fever Within 48 Hours Sepsis New/Unexplained Change in Mental Status Sepsis Action Taken by Nursing VITALS: Vitals are noted on the nurse's note and reviewed by myself. Vital signs stable. GENERAL: Well-developed, well-nourished, white female, who is in discomfort secondary to her stated complaint. HEAD: Normocephalic atraumatic. NECK: Supple without nuchal rigidity. No lymphadenopathy. No thyromegaly. Cervical spine is nontender. HEART: Regular rate and rhythm without murmurs gallops or rubs. LUNGS: Clear to auscultation bilaterally without wheezes, rales or rhonchi. No retractions or accessory muscle use. ABDOMEN: Positive normal bowel sounds x 4. Soft, nontender, without masses or organomegaly. No guarding or rebound tenderness. MUSCULOSKELETAL: No muscle atrophy, erythema, or edema noted. Full range of motion in all extremities. Course Administered Medications Acetaminophen (Acetaminophen 325 Mg Tab) 650 mg PO Q4H PRN PRN Reason: pain/fever Stop: 01/01/25 09:24 Last Admin: 12/02/24 20:53 Dose: 650 mg Documented By: Admin: 12/02/24 13:19 Dose: 650 mg Documented By: ANNETTE Atorvastatin Calcium (Atorvastatin 10 Mg Tab) 10 mg PO QPM [facility] Stop: 01/01/25 20:59 Last Admin: 12/02/24 20:53 Dose: 10 mg Documented By: SHAYNE Lactated Ringer's (Lr) 1,000 mls @ 100 mls/hr IV .Q10H [facility] Stop: 12/05/24 07:59 Last Admin: 12/02/24 20:31 Dose: 100 mls/hr Documented By: Infusion: 12/02/24 19:53 Dose: Infused Documented By: Admin: 12/02/24 09:53 Dose: 100 mls/hr Documented By: DANIEL Ceftriaxone Sodium (Rocephin) 2,000 mg in 50 mls @ 100 mls/hr IV Q24H [facility] Stop: 12/12/24 09:59 Last Infusion: 12/02/24 10:45 Dose: Infused Documented By: Admin: 12/02/24 09:50 Dose: 100 mls/hr Documented By: DANIEL Insulin Aspart (Insulin Aspart Per Unit Charge) 0 units SC ACHS [facility] Stop: 01/01/25 11:29 Last Admin: 12/02/24 20:55 Dose: Not Given Documented By: Admin: 12/02/24 17:04 Dose: Not Given Documented By: Admin: 12/02/24 11:24 Dose: Not Given Documented By: ANNETTE Insulin Glargine (Lantus Per Unit Charge) 5 units SQ BID [facility] Stop: 01/01/25 09:59 Last Admin: 12/02/24 20:55 Dose: Not Given Documented By: Admin: 12/02/24 10:38 Dose: Not Given Documented By: DANIEL Morphine Sulfate (Morphine Sulfate 2 Mg/Ml Carp) 2 mg IV Q4H PRN PRN Reason: Mod-Sev Pain (Scale 4-10) Stop: 12/16/24 07:34 Last Admin: 12/02/24 14:24 Dose: 2 mg Documented By: Admin: 12/02/24 09:50 Dose: 2 mg Documented By: DANIEL Ondansetron HCl (Ondansetron Inj 2 Mg/Ml 2 Ml Vial) 4 mg IV Q6H PRN PRN Reason: Nausea Stop: 01/01/25 09:24 Last Admin: 12/02/24 14:24 Dose: 4 mg Documented By: LUCÍA Senna/Docusate Sodium (Docusate Sodium/Senna 50/8.6mg Tab) 2 tab PO [facility] Stop: 01/01/25 20:59 Last Admin: 12/02/24 20:53 Dose: 2 tab Documented By: SHAYNE Tamsulosin HCl (Tamsulosin Hcl 0.4 Mg Cap) 0.4 mg PO QAM [facility] Stop: 01/01/25 09:59 Last Admin: 12/02/24 09:50 Dose: 0.4 mg Documented By: DANIEL Discontinued Medications Sodium Chloride (Nss) 1,000 mls @ 999 mls/hr IV .Q1H1M ONE Stop: 12/02/24 06:03 Last Infusion: 12/02/24 06:22 Dose: Infused Documented By: Admin: 12/02/24 05:10 Dose: 999 mls/hr Documented By: JUWAN Sodium Chloride (Nss) 1,000 mls @ 125 mls/hr IV .Q8H [facility] Stop: 12/05/24 07:44 Last Infusion: 12/02/24 11:24 Dose: Infused Documented By: Infusion: 12/02/24 10:05 Dose: 0 mls/hr Documented By: Admin: 12/02/24 07:49 Dose: 125 mls/hr Documented By: DANIEL Ketorolac Tromethamine (Ketorolac 30 Mg/Ml Vial) 30 mg IV NOW STA Stop: 12/02/24 05:04 Last Admin: 12/02/24 05:09 Dose: 30 mg Documented By: JUWAN Morphine Sulfate (Morphine Sulfate 4 Mg/Ml 1 Ml Carp\Vial) 4 mg IV Q30M PRN PRN Reason: Pain Stop: 12/16/24 05:02 Last Admin: 12/02/24 06:24 Dose: 4 mg Documented By: Admin: 12/02/24 05:10 Dose: 4 mg Documented By: JUWAN Ondansetron HCl (Ondansetron Inj 2 Mg/Ml 2 Ml Vial) 4 mg IV NOW STA Stop: 12/02/24 05:04 Last Admin: 12/02/24 05:08 Dose: 4 mg Documented By: JUWAN Medical Decision Making Differential Diagnosis Differential diagnosis: Etiologies such as shingles, pyelonephritis/UTI, renal colic, appendicitis, diverticulitis, mesenteric ischemia, torsion, aortic pathology, infections, inflammatory bowel disease, bowel obstruction, PUD, biliary pathology, as well as others were entertained. Laboratory Data 12/02/24 05:03 12/02/24 05:03 Lab Results 12/02/24 12/02/24 Range/Units 05:03 05:57 WBC 9.65 (4.8-10.8) K/ul RBC 5.26 (4.20-5.40) M/uL Hgb 15.0 (12.0-16.0) g/dl Hct 44.6 (37.0-47.0) % MCV 84.8 (80.0-100.0) fL MCH 28.5 (25.0-34.0) pg MCHC 33.6 (32.0-36.0) g/dL RDW Std Deviation 40.3 (36.4-46.3) fL RDW Coeff of Babak 13.1 (11.5-14.5) % Plt Count 238 (130-400) K/uL MPV 10.7 (9.4-12.4) fL Immature Gran % (Auto) 0.3 % Neut % (Auto) 47.9 % Lymph % (Auto) 42.1 % Larue % (Auto) 5.2 % Eos % (Auto) 3.7 % Baso % (Auto) 0.8 % Neut # (Auto) 4.62 (1.40-6.50) K/uL Lymph # (Auto) 4.06 H (1.20-3.40) K/uL Larue # (Auto) 0.50 (0.11-0.59) K/uL Eos # (Auto) 0.36 (0.00-0.50) K/uL Baso # (Auto) 0.08 (0.00-0.20) K/uL Immature Gran # (Auto) 0.03 (0.01-0.20) K/uL Sodium 139 (136-145) mmol/L Potassium 3.7 (3.5-5.1) mmol/L Chloride 104 (98-107) mmol/L Carbon Dioxide 26 (21-32) mmol/L Anion Gap 9 (3-11) BUN 19 (6-23) mg/dl Creatinine 0.91 (0.6-1.2) mg/dl Est Cr Clr Drug Dosing 93.0 ml/min eGFR 78.31 BUN/Creatinine Ratio 20.9 H (10-20) Glucose 221 H (70-99(Fasting)) mg/dl Calcium 10.1 (8.6-10.3) mg/dl Total Bilirubin 0.7 (0.2-1.0) mg/dl AST 46 H (13-39) U/L ALT 42 (7-52) U/L Alkaline Phosphatase 99 (34-104) U/L Total Protein 7.8 (6.0-8.3) gm/dl Albumin 4.8 (3.4-5.0) gm/dl Globulin 3.0 (2.5-4.0) gm/dl Albumin/Globulin Ratio 1.6 (0.9-2) Lipase 130 H (11-82) U/L HCG, Qual Negative (Negative) Urine Color Yellow Urine Appearance Cloudy A (Clear) Urine pH 5.5 (4.5-7.5) Ur Specific [place] 1.024 (1.000-1.030) Urine Protein 1+ H (Negative) Urine Glucose (UA) 2+ H (Negative) Urine Ketones Trace H (Negative) Urine Blood 3+ H (Negative) Urine Nitrite Negative (Negative) Urine Bilirubin Negative (Negative) Urine Urobilinogen Negative (Negative) Ur Leukocyte Esterase Trace H (Negative) Urine WBC (Auto) 6-10 H (0-5) /hpf Urine RBC (Auto) >20 H (0-2) /hpf U Hyaline Cast (Auto) 0-2 (0-2) /lpf U Epithel Cells (Auto) 0-2 (0-2) /hpf Urine Bacteria (Auto) None Seen (None Seen) Urine Comment Imaging Data Radiologist's Impression: Abdomen/Pelvis CT 12/02/24 05:03 EXAM: CT abd pelvis wo con CLINICAL HISTORY: left side flank pain, hx stones TECHNIQUE: Contiguous axial images were obtained from the level of the diaphragm to the pubic symphysis without intravenous or oral contrast. Coronal and sagittal reconstructions were likewise performed and indicated to increase the sensitivity for detecting clinically relevant pathology. CT scan was performed according to ALARA (as low as reasonable achievable). 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 Evaluation of the abdominal and pelvic visceral organs is limited without intravenous contrast. The unenhanced liver, spleen, pancreas, and adrenal glands are grossly unremarkable. The gallbladder is present. The kidneys are normal in size and attenuation without obvious calcification. Right kidney show nonobstructing calculus of size 4mm in middle calyx. Left kidney shows mild hydronephrosis and hydroureter up to an obstructing calculus of size 5 mm involving left upper ureter (about 35 mm distal to pelviureteric junction.) The urinary bladder is normal in contour. Uterus shows lobulated contour- possibility of uterine fibroid - USG correlation suggested. No adenopathy or fluid collections are seen. No evidence of focal or diffuse bowel wall thickening or evidence of bowel obstruction is seen. The appendix is visualized in the right lower quadrant and appears within normal limits. The aorta is normal in caliber. No aggressive appearing osseous lesions are identified. IMPRESSION: 1. Right kidney show nonobstructing calculus of size 4mm in middle calyx.-stable. 2. Left kidney shows mild hydronephrosis and hydroureter up to an obstructing calculus of size 5 mm involving left upper ureter (about 35 mm distal to pelviureteric junction.)-new finding. ( prior pelviureteric junction calculus and left nephrolithiasis is not seen in current study) 3. Right ureterolithiasis also not seen in current study 4. Uterus shows lobulated contour- possibility of uterine fibroid - USG correlation suggested.-new finding. Electronically signed by Khadar Dolan 12-02-2024 06:17 AM MDM Narrative Physical exam and history were performed. Nursing notes, EMR, and Medication List were personally reviewed. No social concerns were identified as barriers to patients care. History was provided by the Patient. Patient appears to have left flank pain bringing her to the ER. She is quite uncomfortable on presentation and does have a history of kidney stones. IV access was established and labs were obtained. She was hydrated normal saline and given IV Toradol, IV morphine, and IV Zofran. She was sent to CT scan for imaging of her abdomen and pelvis. Patient's blood work is as above and was reviewed. She does not have significant elevated white blood cell count, gross anemia, bandemia, or significant electrolyte imbalance. Transaminases are not diagnostic. CT scan was independently reviewed by myself and radiology, and appears to show a 5 mm ureteral calculi with hydronephrosis. Escalation of care was considered, and discussed with patient. Her is in [place] this morning and coming to this facility. At a minimum she would not be discharged without him, and ultimately she may need admission pending pain control. Case was discussed with my colleague, Kevin Gonzalez PA-C, who will assume care at the time of shift change. Please see Carlos's dictation for further patient course, plan, disposition. The chart was completed utilizing [employer] Voice Recognition Software. Grammatical errors, random word insertions, pronoun errors, and incomplete sentences are an occasional consequence of this system due to software limitations, ambient noise, and hardware issues. Any formal questions or concerns about the content, text, or information contained within the body of this dictation should be directly addressed to the provider for clarification. Impression & Plan Hydronephrosis with obstructing calculus Discharge Plan Visit Data Chief Complaint: Kidney Stone Stated Complaint: KIDNEY STONE? ED Provider: Ronaldo Caicedo ED Midlevel Provider: Kevin Gonzalez Discharge Problem: Hydronephrosis with obstructing calculus Patient Disposition: Admitted As Inpatient Condition: Fair Discharge Instructions Interventions: ED Discharge Assessment Last Done: 12/02/24 09:25
[2024-12-02 06:15] LABS: Appearance Urine Cloudy (Clear); Bacteria Urine Automated None Seen (None Seen); Cast Urine Automated 0-2 /lpf (0-2); Epithelial Cell Urine Auto 0-2 /hpf (0-2); Glucose Urine UA 2+ (Negative); RBC Urine Automated >20 /hpf (0-2)
--- NOTE | 2024-12-02 06:17 | CT Scan Report ---
EXAM: CT abd pelvis wo con CLINICAL HISTORY: left side flank pain, hx stones TECHNIQUE: Contiguous axial images were obtained from the level of the diaphragm to the pubic symphysis without intravenous or oral contrast. Coronal and sagittal reconstructions were likewise performed and indicated to increase the sensitivity for detecting clinically relevant pathology. CT scan was performed according to ALARA (as low as reasonable achievable). 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 Evaluation of the abdominal and pelvic visceral organs is limited without intravenous contrast. The unenhanced liver, spleen, pancreas, and adrenal glands are grossly unremarkable. The gallbladder is present. The kidneys are normal in size and attenuation without obvious calcification. Right kidney show nonobstructing calculus of size 4mm in middle calyx. Left kidney shows mild hydronephrosis and hydroureter up to an obstructing calculus of size 5 mm involving left upper ureter (about 35 mm distal to pelviureteric junction.) The urinary bladder is normal in contour. Uterus shows lobulated contour- possibility of uterine fibroid - USG correlation suggested. No adenopathy or fluid collections are seen. No evidence of focal or diffuse bowel wall thickening or evidence of bowel obstruction is seen. The appendix is visualized in the right lower quadrant and appears within normal limits. The aorta is normal in caliber. No aggressive appearing osseous lesions are identified. IMPRESSION: 1. Right kidney show nonobstructing calculus of size 4mm in middle calyx.-stable. 2. Left kidney shows mild hydronephrosis and hydroureter up to an obstructing calculus of size 5 mm involving left upper ureter (about 35 mm distal to pelviureteric junction.)-new finding. ( prior pelviureteric junction calculus and left nephrolithiasis is not seen in current study) 3. Right ureterolithiasis also not seen in current study 4. Uterus shows lobulated contour- possibility of uterine fibroid - USG correlation suggested.-new finding. Electronically signed by Khadar Dolan 12-02-2024 06:17 AM
--- NOTE | 2024-12-02 07:22 | Emergency Department Note ---
ED Visit Note Patient case received in signout at 0655 on 12/02/2024 from Branden Cruz PA-C. Please refer to his note regarding details. I reevaluated the patient at that time. I reviewed today's findings with the patient. 5 mm obstructing stone noted mid ureter. I discussed options with the patient. Case discussed with the hospitalist service. Plan at this time is to proceed with further evaluation and management in the hospital. Please refer to further documentation regarding her stay. .
[2024-12-02] MEDS ORDERED: HYDROmorphone INJ 1 MG/ML SYRINGE IV PRN (07:35)
[2024-12-02] MEDS ORDERED: ONDANSETRON INJ 2 MG/ML 2 ML VIAL IV PRN (07:37)
--- NOTE | 2024-12-02 07:39 | History & Physical Report ---
Date of Service December 02, 2024 Assessment & Plan (1) Hydronephrosis with obstructing calculus: (2) Abnormal urinalysis: Plan Pt is a 49y/o F with PMHx significant for DMII [Hgb A1c 8.1% as of 10/2024], history of bilateral obstructing renal calculi s/p bilateral ureteroscopy with stent placement for stone treatment on 02/04/24 [stone composition: 95% calcium oxalate dihydrate/5% calcium oxalate monohydrate; stents removed on 02/08/24] with residual mild L hydronephrosis, history of L hip replacement and HLD who presented to the ED with complaint of L-sided flank pain and was found to have an obstructing 5mm L-sided renal calculus involving the L upper ureter with mild L hydronephrosis and hydroureter. Obstructing L renal calculus with mild L hydronephrosis and hydroureter History of bilateral obstructing renal calculi s/p bilateral ureteroscopy with prior stent placement in 01/2024 with residual mild L hydronephrosis Abnormal UA concerning for possible UTI CTAP: 5mm obstructing L calculus with mild L hydronephrosis and hydroureter, nonobstructing 4mm R calculus in middle calyx (stable) S/p 1L NSS in ED, continue MIVF with LR PRN analgesia, antiemetics Richie po Flomax, urine strainer UA: trace LE, + WBC --> will cover with empiric IV Rocephin pending urine cx results Appreciate urology consult (pt previously established with Dr. Santiago) Possible uterine fibroid incidentally noted on CTAP CTAP: uterus shows lobulated contour - possibility of uterine fibroid - USG correlation suggested (new finding) Discussed with pt, states she has a h/o fibroids previously requiring ablation --> recommended OP pelvic US for further evaluation DM Type II Hgb A1c 8.1% as of 10/2024 Hold home regimen including metformin, Mounjaro Richie HS bowel reg with Senokot S per pt's request (h/o constipation since being on Mounjaro) SSI regimen while inpt (pt has CGM in place --> follow checks) HLD Continue statin DVT Prophylaxis: SCDs/TEDs only for now Disposition: Observation in med/surg Patient seen in collaboration with Dr. Roberson. Please see addendum. I spent a total of 50 minutes coordinating, documenting, and providing care for this patient excluding time spent in the performance of separately billed services or time spent by another provider/QHP. This included personally reviewing all current laboratories and imaging studies, medical reconciliation, outpatient chart review and discussion with specialists. This chart was completed in part utilizing Speech Voice Recognition Software. Grammatical errors, random word insertions, pronoun errors, and incomplete sentences are an occasional consequence of this system due to software limitations, ambient noise, and hardware issues. Any formal questions or concerns about the content, text, or information contained within the body of this dictation should be directly addressed to the provider for clarification. History of Present Illness Chief Complaint: L-sided flank pain Primary Care Provider: Nelson Cosme DO [[facility] [place]] Pt is a 49y/o F with PMHx significant for DMII [Hgb A1c 8.1% as of 10/2024], history of bilateral obstructing renal calculi s/p bilateral ureteroscopy with stent placement for stone treatment on 02/04/24 [stone composition: 95% calcium oxalate dihydrate/5% calcium oxalate monohydrate; stents removed on 02/08/24] with residual mild L hydronephrosis, history of L hip replacement and HLD who presented to the ED with complaint of L-sided flank pain. History obtained from the pt, discussion with ED provider and associated chart review. Endorses acute onset of L-sided flank pain which began overnight around 2AM. Sudden pain awoke her from sleep. Did experience some nausea, chills and sweats with this as well. No recorded fevers. Admits to taking a dose of Zofran at home which seemed to help the nausea but the pain remained uncontrollable, which ultimately prompted her to come to the ED for evaluation. Has a history of kidney stones previously requiring stent placement. Denies any dysuria, hematuria or increased urinary frequency. In ED, pt states pain has significantly improved with IV morphine. Nausea also s ubsided with IV Zofran. 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 No prior smoking history. Allergies Allergy/AdvReac Type Severity Reaction Status Date / Time No Known Drug Allergies Allergy . Verified 12/02/24 08:07 Home Medications Medication Instructions Recorded Confirmed Type metformin 500 mg tablet 1,000 mg PO BID 05/01/22 12/02/24 History atorvastatin 10 mg tablet 10 mg PO QPM 05/10/22 12/02/24 History lancets 33 gauge (OneTouch Delica #100 ea 05/12/22 12/02/24 Rx Plus Lancet) blood sugar diagnostic (OneTouch #50 ea 05/15/22 12/02/24 Rx Verio test strips) OneTouch Verio Reflect Start #1 ea 05/18/22 12/02/24 Rx (blood-glucose meter) acetaminophen 500 mg tablet 1,000 mg PO TID PRN pain 01/22/24 12/02/24 History (Tylenol Extra Strength) sennosides 8.6 mg tablet (Senokot) 8.6 mg PO HS PRN prevent 01/22/24 12/02/24 History constipation ondansetron 4 mg disintegrating 4 mg PO Q8H PRN nausea 01/28/24 12/02/24 History tablet blood-glucose sensor (FreeStyle #2 ea 11/11/24 12/02/24 Rx Natalia 3 Plus Sensor device) tirzepatide 7.5 mg/0.5 mL 7.5 mg (0.5 mL) subcut Q7D #2 mL 11/11/24 12/02/24 Rx subcutaneous pen injector cyclobenzaprine 10 mg tablet 10 mg PO HS PRN Pain 12/02/24 12/02/24 History diphenhydramine 25 1 tab PO HS PRN Sleep/Pain 12/02/24 12/02/24 History mg-acetaminophen 500 mg tablet (Tylenol PM Extra Strength) Past Med/Surg History Problem List Abnormal urinalysis Hydronephrosis with obstructing calculus Uncontrolled type 2 diabetes mellitus with hyperglycemia Hydronephrosis Renal colic Leukocytosis (Acute) Calculus of both ureters (Acute) Abdominal wall pain in right flank (Acute) Status post left hip replacement Obesity, diabetes, and hypertension syndrome Mixed hyperlipidemia Medical History Hx of fracture of nose (2018) set by dr. amos Hx of renal calculi GERD (gastroesophageal reflux disease) intermittent, stable per pt-omeprazole prn White coat syndrome with high blood pressure but without hypertension Chronic low back pain stable per pt since hip replacement Obesity (BMI 30.0-34.9) History of anesthesia reaction - difficulty waking up after hand surgery in and sats low at that time; patient states that was told first attempt was not successful and medication entered body, second attempt was only beneficial on one side-O2 sats dropped needing to be placed in recovery unit; she is unsure if supplemental oxygen was administered - no issues noted with left TKA (12/11/23) under SAB, no issues with cysto/stent placement (01/23/24) under [place] Mixed hyperlipidemia Diabetes mellitus, type II NIDDM Surgical History Hx of myomectomy (2011) History of open reduction and internal fixation (ORIF) procedure (1997) 1997, right hand>pins removed S/P cystoscopy with ureteral stent placement (2023) x 2 Status post left hip replacement (12/11/23) History of tubal ligation H/O section (~1999) History of endometrial ablation (~07/03/17) Family History Father Melanoma Cirrhosis with alcoholism Mother Asthma Hypertension COPD (chronic obstructive pulmonary disease) Grandmother (Maternal) Breast cancer Alcoholism Grandmother (Paternal) Arthritis Grandfather (Paternal) Cancer Family/Other History of heart attack Social History Smoking Status: Never smoker Second Hand Exposure: No; Do You Dip or Chew Tobacco: No; Hx Alcohol Use: Yes Alcohol type: beer Alcohol Intake Frequency Comment: Rarely Hx Substance Use: No Preferred Language: Mohawk Communication Ability: Effective Buyer Required: No Beliefs That Will Affect Care: None Current Living Situation: Spouse and Family Other Information That Helps Us Care for You: No Feels Safe at Home: Yes Safety Concerns: Feels Safe At This Time Assistive Devices: Glasses Review of Systems Review of Systems: At least ten systems reviewed and negative, except as noted in the HPI. Physical Exam Physical Exam: General: WD/WN, NAD, sitting up in bed, A&Ox3, pleasant, conversing appropriately HEENT: Normocephalic, atraumatic, somewhat dry mucous membranes Respiratory: Normal respiratory effort, CTAB Cardiovascular: RRR, no BLE edema Abdomen/GI: Active bowel sounds, soft, nontender to palpation in all quadrants Extremities/MSK: No cyanosis or clubbing, extremities motor strength intact, moves all extremities Neurologic: No overt focal deficits, CN's II-XI not formally tested but appear grossly intact bilaterally Results & Data Results & Data Vital Signs (Past 12 Hours) Vital Signs Temp Pulse Pulse Resp BP BP Pulse Ox 12/02/24 07:00 90 17 156/99 H 93 12/02/24 06:30 94 H 15 160/98 H 98 12/02/24 06:00 92 H 18 163/95 H 98 12/02/24 06:00 92 H 18 163/95 H 98 12/02/24 05:40 93 H 19 176/114 H 99 12/02/24 05:18 88 15 179/112 H 97 12/02/24 05:17 86 12/02/24 04:59 36.5 C 99 H 20 183/118 H 99 O2 Del Method 12/02/24 07:00 Room Air 12/02/24 06:30 Room Air 12/02/24 06:00 Room Air 12/02/24 06:00 Room Air 12/02/24 05:40 Room Air 12/02/24 05:18 Room Air 12/02/24 05:17 12/02/24 04:59 Laboratory Results Short CBC 12/02/24 Range/Units 05:03 WBC 9.65 (4.8-10.8) K/ul Hgb 15.0 (12.0-16.0) g/dl Hct 44.6 (37.0-47.0) % Plt Count 238 (130-400) K/uL BMP 12/02/24 05:03 Sodium 139 Potassium 3.7 Chloride 104 Carbon Dioxide 26 BUN 19 Creatinine 0.91 Glucose 221 H Calcium 10.1 Liver Function 12/02/24 Range/Units 05:03 Total Bilirubin 0.7 (0.2-1.0) mg/dl AST 46 H (13-39) U/L ALT 42 (7-52) U/L Alkaline Phosphatase 99 (34-104) U/L Albumin 4.8 (3.4-5.0) gm/dl Urine 12/02/24 Range/Units 05:57 Urine Color Yellow Urine Appearance Cloudy A (Clear) Urine pH 5.5 (4.5-7.5) Ur Specific [place] 1.024 (1.000-1.030) Urine Protein 1+ H (Negative) Urine Glucose (UA) 2+ H (Negative) Diagnostic Findings Abdomen/Pelvis CT 12/02/24 05:03 EXAM: CT abd pelvis wo con CLINICAL HISTORY: left side flank pain, hx stones TECHNIQUE: Contiguous axial images were obtained from the level of the diaphragm to the pubic symphysis without intravenous or oral contrast. Coronal and sagittal reconstructions were likewise performed and indicated to increase the sensitivity for detecting clinically relevant pathology. CT scan was performed according to ALARA (as low as reasonable achievable). COMPARISON: 01/22/2024 19:18:48 STAMP PRESSER FINDINGS: The visualized lung bases are clear. Evaluation of the abdominal and pelvic visceral organs is limited without intravenous contrast. The unenhanced liver, spleen, pancreas, and adrenal glands are grossly unremarkable. The gallbladder is present. The kidneys are normal in size and attenuation without obvious calcification. Right kidney show nonobstructing calculus of size 4mm in middle calyx. Left kidney shows mild hydronephrosis and hydroureter up to an obstructing calculus of size 5 mm involving left upper ureter (about 35 mm distal to pelviureteric junction.) The urinary bladder is normal in contour. Uterus shows lobulated contour- possibility of uterine fibroid - USG correlation suggested. No adenopathy or fluid collections are seen. No evidence of focal or diffuse bowel wall thickening or evidence of bowel obstruction is seen. The appendix is visualized in the right lower quadrant and appears within normal limits. The aorta is normal in caliber. No aggressive appearing osseous lesions are identified. IMPRESSION: 1. Right kidney show nonobstructing calculus of size 4mm in middle calyx.-stable. 2. Left kidney shows mild hydronephrosis and hydroureter up to an obstructing calculus of size 5 mm involving left upper ureter (about 35 mm distal to pelviureteric junction.)-new finding. ( prior pelviureteric junction calculus and left nephrolithiasis is not seen in current study) 3. Right ureterolithiasis also not seen in current study 4. Uterus shows lobulated contour- possibility of uterine fibroid - USG correlation suggested.-new finding. Electronically signed by Khadar Dolan 12-02-2024 06:17 AM Medications Administered Discontinued Medications Sodium Chloride (Nss) 1,000 mls @ 999 mls/hr IV .Q1H1M ONE Stop: 12/02/24 06:03 Last Infusion: 12/02/24 06:22 Dose: Infused Documented By: Admin: 12/02/24 05:10 Dose: 999 mls/hr Documented By: JUWAN Ketorolac Tromethamine (Ketorolac 30 Mg/Ml Vial) 30 mg IV NOW STA Stop: 12/02/24 05:04 Last Admin: 12/02/24 05:09 Dose: 30 mg Documented By: JUWAN Morphine Sulfate (Morphine Sulfate 4 Mg/Ml 1 Ml Carp\Vial) 4 mg IV Q30M PRN PRN Reason: Pain Stop: 12/16/24 05:02 Last Admin: 12/02/24 06:24 Dose: 4 mg Documented By: Admin: 12/02/24 05:10 Dose: 4 mg Documented By: JUWAN Ondansetron HCl (Ondansetron Inj 2 Mg/Ml 2 Ml Vial) 4 mg IV NOW STA Stop: 12/02/24 05:04 Last Admin: 12/02/24 05:08 Dose: 4 mg Documented By: JUWAN Code Status & VTE Plan Code Status FULL CODE - As per discussion with the pt at bedside in the ED. VTE Prophylaxis Plan VTE Prophylaxis will be ordered: Yes Supervising Physician Co-Signing Physician Notes Patient is a 49-year-old female with history of nephrolithiasis, diabetes mellitus, hyperlipidemia presents with history of left flank pain which has been gradually worsening associated with some nausea, chills and diaphoresis. Please review HPI for complete details of presentation. I personally reviewed blood work and imaging studies. On exam patient is overweight, no apparent distress, normocephalic atraumatic, EOMI, normal breath sounds, clear to auscultation, S1- S2, no murmur, no pedal edema, abdomen soft, nontender, mild flank tenderness, alert, awake, oriented, grossly nonfocal deficits. Patient is admitted for management of obstructive uropathy secondary to ureteral calculus and suspected complicated urinary tract infection. Continue IV fluids, Flomax, strain urine. Empirically on Rocephin. Follow-up cultures. Urology consulted. Also noted to have abnormal CT suggestive of possible uterine fibroid. Will need further workup as outpatient. Blood pressure elevated likely situational secondary to pain, monitor. I personally interviewed and examined the patient at bedside. I have reviewed the advanced practitioner's documentation on the date of service referred in note and agree with plan. Patient's care is coordinated with Yasmin Sparks PA-C. Please refer to the documentation above for details of patient's presentation and for discussion of other issues. I spent a total [id number] coordinating, documenting, and providing care for this patient excluding time spent in the performance of separately billed services or time spent by another provider/QHP.
[2024-12-02] MEDS: SODIUM CHLORIDE 0.9% 1,000 ML IV SCH (07:49)
[2024-12-02] MEDS ORDERED: POLYETHYLENE (MIRALAX) 17 GM PACK PO PRN (09:25)
[2024-12-02] MEDS ORDERED: MAGNESIUM HYDROXIDE SUSP 30 ML UDC PO PRN (09:25)
[2024-12-02] MEDS ORDERED: GLUCOSE 10 TAB/TUBE PO PRN (09:47)
[2024-12-02] MEDS ORDERED: CARBOHYDRATES FOR HYPOGLYCEMIA PO PRN (09:47)
[2024-12-02] MEDS ORDERED: DEXTROSE 50% 50 ML SYRINGE IV PRN (09:47)
[2024-12-02] MEDS ORDERED: GLUCOSE 40% GEL 15 GM TUBE PO PRN (09:47)
[2024-12-02] MEDS ORDERED: GLUCAGON FOR INJ 1 MG VIAL SQ PRN (09:47)
[2024-12-02] MEDS: MoRPHine SULFATE 2 MG/ML CARP IV PRN (09:50)
[2024-12-02] MEDS: cefTRIAXone SODIUM 2,000 MG/50 ML BAG IV SCH (09:50)
[2024-12-02] MEDS: TAMSULOSIN HCL 0.4 MG CAP PO SCH (09:50)
[2024-12-02] MEDS: LACTATED RINGER'S 1,000 ML IV SCH (09:53)
[2024-12-02] MEDS: LANTUS PER UNIT CHARGE SQ SCH (10:38)
[2024-12-02] MEDS: INSULIN ASPART PER UNIT CHARGE SC SCH (11:24)
--- NOTE | 2024-12-02 12:16 | Urology Consultation ---
Date of Consultation December 02, 2024 Assessment & Plan (1) Hydronephrosis with obstructing calculus: 49-year-old female with history of nephrolithiasis presented to the emergency department today with sudden onset of left flank pain. Workup in ED demonstrated an obstructing 5 mm left proximal ureteral stone. She was admitted to hospital medicine service for pain management. Urology is consulted regarding left ureteral stone Patient is afebrile and hemodynamically stable Lab work reviewedcreatinine 0.91, WBC 9.65, hemoglobin 15.0 Urinalysis is not overly suggestive of infection Urine culture pendingfollow culture Discussed options for stone management including trial of passage with medical e xpulsive therapy versus left ureteral stent placement No emergent indication for stent today and patient is not appropriately NPO at present Patient elects trial of passage Okay to continue diet today Make NPO at midnight to reassess Continue supportive care and medical management per hospital medicine service will follow-up, please contact our service with any changes to patient's clinical status History of Present Illness Reason for Consultation: left ureteral calculus Attending Physician: Cj Roberson MD History of Present Illness This is a 49-year-old female who follows with urology for nephrolithiasis. She presented to the emergency department today for evaluation of left flank pain that began around 2 AM. On arrival to ED, she was afebrile and hypertensive. Lab work showed WBC 9.65, hemoglobin 15.0, creatinine 0.91. Urinalysis with 3+ blood, trace LE, 6-10 WBC, >20 RBC and negative for bacteria. Workup included CT abdomen pelvis without contrast which demonstrated mild left hydronephrosis and hydroureter secondary to an obstructing 5 mm left proximal ureteral stone. A nonobstructing right renal calculus. ED course: IV fluids, ketorolac, ondansetron and morphine. She is admitted to the hospital medicine service for pain management. Urology is consulted for left ureteral stone. Patient seen and examined in the emergency department. She has been feeling better since arrival. She noted sudden onset of left flank pain and subsequently developed nausea. No dysuria or hematuria. No fever or chills. She had a lunch tray upon my arrival. Allergies Allergy/AdvReac Type Severity Reaction Status Date / Time No Known Drug Allergies Allergy . Verified 12/02/24 08:07 Home Medications Medication Instructions Recorded Confirmed Type metformin 500 mg tablet 1,000 mg PO BID 05/01/22 12/02/24 History atorvastatin 10 mg tablet 10 mg PO QPM 05/10/22 12/02/24 History lancets 33 gauge (OneTouch Delica #100 ea 05/12/22 12/02/24 Rx Plus Lancet) blood sugar diagnostic (OneTouch #50 ea 05/15/22 12/02/24 Rx Verio test strips) OneTouch Verio Reflect Start #1 ea 05/18/22 12/02/24 Rx (blood-glucose meter) acetaminophen 500 mg tablet 1,000 mg PO TID PRN pain 01/22/24 12/02/24 History (Tylenol Extra Strength) sennosides 8.6 mg tablet (Senokot) 8.6 mg PO HS PRN prevent 01/22/24 12/02/24 History constipation ondansetron 4 mg disintegrating 4 mg PO Q8H PRN nausea 01/28/24 12/02/24 History tablet blood-glucose sensor (FreeStyle #2 ea 11/11/24 12/02/24 Rx Natalia 3 Plus Sensor device) tirzepatide 7.5 mg/0.5 mL 7.5 mg (0.5 mL) subcut Q7D #2 mL 11/11/24 12/02/24 Rx subcutaneous pen injector cyclobenzaprine 10 mg tablet 10 mg PO HS PRN Pain 12/02/24 12/02/24 History diphenhydramine 25 1 tab PO HS PRN Sleep/Pain 12/02/24 12/02/24 History mg-acetaminophen 500 mg tablet (Tylenol PM Extra Strength) Patient History Medical History Hx of fracture of nose (2018) set by dr. amos Hx of renal calculi GERD (gastroesophageal reflux disease) intermittent, stable per pt-omeprazole prn White coat syndrome with high blood pressure but without hypertension Chronic low back pain stable per pt since hip replacement Obesity (BMI 30.0-34.9) History of anesthesia reaction - difficulty waking up after hand surgery in and sats low at that time; patient states that was told first attempt was not successful and medication entered body, second attempt was only beneficial on one side-O2 sats dropped needing to be placed in recovery unit; she is unsure if supplemental oxygen was administered - no issues noted with left TKA (12/11/23) under SAB, no issues with cysto/stent placement (01/23/24) under [place] Mixed hyperlipidemia Diabetes mellitus, type II NIDDM Surgical History Hx of myomectomy (2011) History of open reduction and internal fixation (ORIF) procedure (1997) 1997, right hand>pins removed S/P cystoscopy with ureteral stent placement (2023) x 2 Status post left hip replacement (12/11/23) History of tubal ligation H/O section (~1999) History of endometrial ablation (~07/03/17) Family History Father Melanoma Cirrhosis with alcoholism Mother Asthma Hypertension COPD (chronic obstructive pulmonary disease) Grandmother (Maternal) Breast cancer Alcoholism Grandmother (Paternal) Arthritis Grandfather (Paternal) Cancer Family/Other History of heart attack Social History Smoking Status: Never smoker Second Hand Exposure: No; Do You Dip or Chew Tobacco: No; Hx Alcohol Use: Yes Alcohol type: beer Alcohol Intake Frequency Comment: Rarely Hx Substance Use: No Preferred Language: Italian Communication Ability: Effective Energy Professional Required: No Beliefs That Will Affect Care: None Current Living Situation: Spouse and Family Other Information That Helps Us Care for You: No Feels Safe at Home: Yes Safety Concerns: Feels Safe At This Time Assistive Devices: Glasses Review of Systems Review of Systems: All systems reviewed & are unremarkable except as noted in HPI & below Physical Exam Constitutional: well developed and well nourished; no acute distress Respiratory: normal respiratory effort; no respiratory distress and no labored breathing Gastrointestinal (Abdomen): Inspection/Auscultation: abdomen normal to inspection Musculoskeletal: Head/Neck/Chest: normocephalic Neurologic: moves all extremities and awake Psychiatric: Orientation: alert and oriented x 3 Results & Data Vital Signs (Past 12 Hours) Vital Signs Temp Pulse Pulse Resp BP BP Pulse Ox 12/02/24 09:56 89 16 144/99 H 97 12/02/24 07:00 90 17 156/99 H 93 12/02/24 06:30 94 H 15 160/98 H 98 12/02/24 06:00 92 H 18 163/95 H 98 12/02/24 06:00 92 H 18 163/95 H 98 12/02/24 05:40 93 H 19 176/114 H 99 12/02/24 05:18 88 15 179/112 H 97 12/02/24 05:17 86 12/02/24 04:59 36.5 C 99 H 20 183/118 H 99 O2 Del Method 12/02/24 09:56 Room Air 12/02/24 07:00 Room Air 12/02/24 06:30 Room Air 12/02/24 06:00 Room Air 12/02/24 06:00 Room Air 12/02/24 05:40 Room Air 12/02/24 05:18 Room Air 12/02/24 05:17 12/02/24 04:59 PG Care Time/CCT Total # of Minutes Spent Total Time Spent with Patient: Total time spent is greater than 50% in coordination of care (as documented) at patient's floor/unit and/or counseling patient: Coding Level of Care Code 37777 IN/OBS CONSULT LVL 4,60M Diagnoses Hydronephrosis with obstructing calculus N13.2
[2024-12-02] MEDS: ACETAMINOPHEN 325 MG TAB PO PRN (13:19)
[2024-12-02] MEDS: ONDANSETRON INJ 2 MG/ML 2 ML VIAL IV PRN (14:24)
[2024-12-02] MEDS: DOCUSATE SODIUM/SENNA 50/8.6MG TAB PO SCH (20:53)
[2024-12-02] MEDS: ATORVASTATIN 10 MG TAB PO SCH (20:53)
[2024-12-03] MEDS: HYDROmorphone INJ 1 MG/ML SYRINGE IV PRN (01:53)
[2024-12-03 07:48] LABS: Hematocrit (blood only) 42.3 % (37.0-47.0); Hemoglobin 14.0 g/dl (12.0-16.0); Mean Corpuscular Hemoglobin 28.4 pg (25.0-34.0); Mean Corpuscular Volume 85.8 fL (80.0-100.0); Platelet Count 215 K/uL (130-400); RDW Standard Deviation 41.2 fL (36.4-46.3); Red Blood Count 4.93 M/uL (4.20-5.40); White Blood Count 8.34 K/ul (4.8-10.8)
[2024-12-03 08:04] LABS: Alanine Aminotransferase 30.0 U/L (7-52); Albumin Globulin Ratio 1.5 (0.9-2); Alkaline Phosphatase 63.0 U/L (34-104); Anion Gap 8.0 (3-11); Bilirubin,Total 1.0 mg/dl (0.2-1.0); Blood Urea Nitrogen 14.0 mg/dl (6-23); Calcium 9.4 mg/dl (8.6-10.3); Carbon Dioxide 27.0 mmol/L (21-32); Chloride 105.0 mmol/L (98-107); Creatinine Clr Calc Pharmacy 107.1 ml/min; Globulin 2.8 gm/dl (2.5-4.0); Glucose 187.0 mg/dl (70-99(Fasting)); Potassium 4.0 mmol/L (3.5-5.1); Sodium 140.0 mmol/L (136-145); Total Protein 6.9 gm/dl (6.0-8.3)
[2024-12-03] MEDS: KETOROLAC 30 MG/ML VIAL IV ONE (08:43)
[2024-12-03] MEDS ORDERED: MoRPHine SULFATE 2 MG/ML CARP IV PRN ×2 (09:16→12:02)
--- NOTE | 2024-12-03 10:30 | Urology Progress Note ---
Date of Service December 03, 2024 Assessment & Plan (1) Hydronephrosis: (2) Left ureteral calculus: Plan 49-year-old female with a left proximal obstructing ureteral calculus Plan to go to the OR for cystoscopy, left retrograde left ureteral stent placement Consent obtained, patient marked Antibiotics to the OR Admission and Anticipated Discharge Date Admission Date: December 02, 2024 Subjective No acute issues overnight. Patient has opted for left ureteral stent placement today Physical Exam Physical Exam: General: Alert and oriented, no acute distress HEENT: Normocephalic, mucous membranes moist Pulmonary: Nonlabored respirations Abdomen: Nondistended Extremities: Moves all 4 spontaneously Neuro: No gross deficits Skin: Warm, dry, no rashes noted Results & Data Vital Signs (Past 12 Hours) Vital Signs Temp Pulse Resp BP Pulse Ox O2 Del Method 12/02/24 23:08 36.5 C 73 16 154/89 H 96 Room Air PG Care Time/CCT Total # of Minutes Spent Total Time Spent with Patient: Total time spent is greater than 50% in coordination of care (as documented) at patient's floor/unit and/or counseling patient: Coding Level of Care Code 66230 SUB INP/OBS CARE 2/35MIN Diagnoses Hydronephrosis N13.30 Left ureteral calculus N20.1
[2024-12-03] MEDS ORDERED: LIDOCAINE 2% 2 ML VIAL/AMP(20MG/ML) INFIL ONE (11:41)
[2024-12-03] MEDS ORDERED: ONDANSETRON INJ 2 MG/ML 2 ML VIAL ONE (11:41)
[2024-12-03] MEDS ORDERED: PROPOFOL IV EMULSION 10 MG/ML 20 ML VIAL IV ONE (11:41)
[2024-12-03] MEDS ORDERED: DEXAMETHASONE SOD INJ 4 MG/ML VIAL ONE (11:41)
[2024-12-03] MEDS ORDERED: MIDAZOLAM HCL 1 MG/ML 2ML VIAL ONE (11:42)
--- NOTE | 2024-12-03 11:52 | Hospitalist Progress Note ---
Date of Service December 03, 2024 Assessment & Plan (1) Hydronephrosis with obstructing calculus: (2) Abnormal urinalysis: Plan Pt is a 49y/o F with PMHx significant for DMII [Hgb A1c 8.1% as of 10/2024], history of bilateral obstructing renal calculi s/p bilateral ureteroscopy with stent placement for stone treatment on 02/04/24 [stone composition: 95% calcium oxalate dihydrate/5% calcium oxalate monohydrate; stents removed on 02/08/24] with residual mild L hydronephrosis, history of L hip replacement and HLD who presented to the ED with complaint of L-sided flank pain and was found to have an obstructing 5mm L-sided renal calculus involving the L upper ureter with mild L hydronephrosis and hydroureter. Obstructing L renal calculus with mild L hydronephrosis and hydroureter History of bilateral obstructing renal calculi s/p bilateral ureteroscopy with prior stent placement in 01/2024 with residual mild L hydronephrosis Abnormal UA concerning for possible UTI CTAP: 5mm obstructing L calculus with mild L hydronephrosis and hydroureter, nonobstructing 4mm R calculus in middle calyx (stable) Did trial of conservative management overnight with IVF and Flomax but unfortunately no spontaneous passage Plan for OR today with Dr. Santiago for cystoscopy, L ureteral stent placement Continue PRN analgesia/antiemetics, Flomax -Pt developed significant dizziness with Dilaudid --> discontinued -Agreeable with trial of IV Toradol; and will increase PRN IV morphine from 2mg to 3mg (only slight relief with 2mg dose) UA: trace LE, + WBC c/f possible infection -Continue empiric IV Rocephin pending urine cx results Possible uterine fibroid incidentally noted on CTAP CTAP: uterus shows lobulated contour - possibility of uterine fibroid - USG correlation suggested (new finding) Discussed with pt, states she has a h/o fibroids previously requiring ablation --> recommended OP pelvic US for further evaluation DM Type II Hgb A1c 8.1% as of 10/2024 Hold home regimen including metformin, Mounjaro Edda HS bowel reg with Senokot S per pt's request (h/o constipation since being on Mounjaro) Pt refused SSI regimen (pt has CGM in place --> follow checks) HLD Continue statin DVT Prophylaxis: SCDs/TEDs only for now Disposition: Switched to admission status from observation prior to OR as instructed by CM Possible DC home tomorrow s/p stent placement, as per above, depending on pt's clinical course/pain control/etc. Patient seen in collaboration with Dr. Gates. Please see addendum. I spent a total of 38 minutes coordinating, documenting, and providing care for this patient excluding time spent in the performance of separately billed services or time spent by another provider/QHP. This included personally reviewing all current laboratories and imaging studies, medical reconciliation, outpatient chart review and discussion with specialists. This chart was completed in part utilizing Speech Voice Recognition Software. Grammatical errors, random word insertions, pronoun errors, and incomplete sentences are an occasional consequence of this system due to software l imitations, ambient noise, and hardware issues. Any formal questions or concerns about the content, text, or information contained within the body of this dictation should be directly addressed to the provider for clarification. Admission and Anticipated Discharge Date Admission Date: December 03, 2024 Supervising Physician Co-Signing Physician Notes Patient seen and examined Agree with findings as detailed by Yasmin Sparks PA-C Subjective Pt seen and examined in room 381-1. Pain previously well-controlled overnight up until around 6:30AM this morning when she awoke with sudden, sharp pain primarily in her L lower abd quadrant with radiation into her back and down the L groin region. Feels the stone may be moving downward but it unfortunately did not pass spontaneously. Had some nausea with the pain as well given its severity but no reported episodes of vomiting. Currently NPO for reevaluation by urology. [place] quite dizzy s/p dose of IV Dilaudid earlier this AM; agreeable with trial of IV Toradol. Review of Systems Review of Systems: At least ten systems reviewed and negative, except as noted in the HPI. Physical Exam Physical Exam: General: WD/WN, A&Ox3, appears quite uncomfortable, sitting up on side of bed HEENT: Normocephalic, atraumatic, moist mucous membranes Respiratory: Normal respiratory effort, CTAB Cardiovascular: RRR, no BLE edema Abdomen/GI: Active bowel sounds, soft/distended, mild TTP in LLQ abd region/L groin Extremities/MSK: No cyanosis or clubbing, extremities motor strength intact, moves all extremities Neurologic: No overt focal deficits, CN's II-XI not formally tested but appear grossly intact bilaterally Results & Data Results & Data Vital Signs (Past 12 Hours) Vital Signs Temp Pulse Pulse Resp BP BP Pulse Ox 12/02/24 23:08 36.5 C 73 16 154/89 H 96 12/02/24 15:05 36.4 C L 82 19 129/77 99 12/02/24 14:20 36.4 C L 86 18 151/93 H 98 12/02/24 13:27 86 14 146/86 H 98 12/02/24 13:04 12/02/24 13:04 85 17 146/86 H 97 O2 Del Method 12/02/24 23:08 Room Air 12/02/24 15:05 Room Air 12/02/24 14:20 Room Air 12/02/24 13:27 Room Air 12/02/24 13:04 Room Air 12/02/24 13:04 Room Air Intake and Output 12/02/24 12/03/24 12/03/24 22:59 06:59 14:59 Intake Total 1000 / 2300.000 966.667 / 2300.000 50 / 50 Output Total 1400 / 1800 400 / 1800 Balance -400 / 500.000 566.667 / 500.000 50 / 50 Intake: IV 1000 / 2300.000 966.667 / 2300.000 50 / 50 Lactated Ringer's 1,000 ml @ 1000 / 1966.667 966.667 / 1966.667 100 mls/hr IV .Q10H EDDA Rx#: [id number] cefTRIAXone SODIUM 2,000 mg In 50 / 50 50 ml @ 100 mls/hr IV Q24H EDDA Rx#:[id number] Output: Urine 1400 / 1800 400 / 1800 Laboratory Results Short CBC 12/03/24 Range/Units 07:21 WBC 8.34 (4.8-10.8) K/ul Hgb 14.0 (12.0-16.0) g/dl Hct 42.3 (37.0-47.0) % Plt Count 215 (130-400) K/uL BMP 12/03/24 07:21 Sodium 140 Potassium 4.0 Chloride 105 Carbon Dioxide 27 BUN 14 Creatinine 0.79 Glucose 187 H Calcium 9.4 Liver Function 12/03/24 Range/Units 07:21 Total Bilirubin 1.0 (0.2-1.0) mg/dl AST 33 (13-39) U/L ALT 30 (7-52) U/L Alkaline Phosphatase 63 (34-104) U/L Albumin 4.1 (3.4-5.0) gm/dl
--- NOTE | 2024-12-03 12:10 | Anesthesiology Consultation ---
Date of Service December 03, 2024 Assessment & Plan ASA ASA2 Proposed Anesthesia Anesthesia Type: MAC Risk / Benefits Reviewed With: PT / POA / Parent / Guardian, Accepts Plan and Informed Consent Obtained History Surgery Operation Date: 12/03/24 12:25 Proposed Procedures p Cystoscopy Left Stent Placement - Puma Santiago MD Height/Weight Height: 5 ft 9 in Weight: 93.4 kg Allergies Allergy/AdvReac Type Severity Reaction Status Date / Time No Known Drug Allergies Allergy . Verified 12/03/24 12:18 Medications Home Medications Medication Instructions Recorded Confirmed Last Taken metformin 500 mg tablet 1,000 mg PO BID 05/01/22 12/02/24 12/01/24 atorvastatin 10 mg tablet 10 mg PO QPM 05/10/22 12/02/24 12/01/24 lancets 33 gauge (OneTouch Delica #100 ea 05/12/22 12/02/24 Unknown Plus Lancet) blood sugar diagnostic (Genius PackTouch #50 ea 05/15/22 12/02/24 Unknown Verio test strips) OneTouch Verio Reflect Start #1 ea 05/18/22 12/02/24 Unknown (blood-glucose meter) acetaminophen 500 mg tablet 1,000 mg PO TID PRN pain 01/22/24 12/02/24 07/02/24 (Tylenol Extra Strength) sennosides 8.6 mg tablet (Senokot) 8.6 mg PO HS PRN prevent 01/22/24 12/02/24 12/01/24 constipation ondansetron 4 mg disintegrating 4 mg PO Q8H PRN nausea 01/28/24 12/02/24 12/01/24 tablet blood-glucose sensor (FreeStyle #2 ea 11/11/24 12/02/24 Unknown Natalia 3 Plus Sensor device) tirzepatide 7.5 mg/0.5 mL 7.5 mg (0.5 mL) subcut Q7D #2 mL 11/11/24 12/02/24 11/27/24 subcutaneous pen injector cyclobenzaprine 10 mg tablet 10 mg PO HS PRN Pain 12/02/24 12/02/24 Unknown diphenhydramine 25 1 tab PO HS PRN Sleep/Pain 12/02/24 12/02/24 Unknown mg-acetaminophen 500 mg tablet (Tylenol PM Extra Strength) Active Medications Generic Name Dose Route Start Last Admin Trade Name Freq PRN Reason Stop Dose Admin Acetaminophen 650 mg 12/02/24 09:25 12/03/24 07:26 Acetaminophen 325 Mg Tab PO 01/01/25 09:24 650 mg Q4H PRN Administration pain/fever Atorvastatin Calcium 10 mg 12/02/24 21:00 12/02/24 20:53 Atorvastatin 10 Mg Tab PO 01/01/25 20:59 10 mg QPM EDDA Administration Lactated Ringer's 1,000 mls @ 100 mls/hr 12/02/24 08:00 12/03/24 06:11 Lr IV 12/05/24 07:59 100 mls/hr .Q10H EDDA Administration Ceftriaxone Sodium 2,000 mg in 50 mls @ 100 mls/hr 12/02/24 10:00 12/03/24 10:50 Rocephin IV 12/12/24 09:59 Infused Q24H EDDA Infusion Insulin Aspart 0 units 12/02/24 11:30 12/03/24 08:20 Insulin Aspart Per Unit Charge SC 01/01/25 11:29 Not Given ACHS EDDA Insulin Glargine 5 units 12/02/24 10:00 12/03/24 08:21 Lantus Per Unit Charge SQ 01/01/25 09:59 Not Given BID EDDA Ondansetron HCl 4 mg 12/02/24 09:25 12/03/24 06:34 Ondansetron Inj 2 Mg/Ml 2 Ml Vial IV 01/01/25 09:24 4 mg Q6H PRN Administration Nausea Senna/Docusate Sodium 2 tab 12/02/24 21:00 12/02/24 20:53 Docusate Sodium/Senna 50/8.6mg Tab PO 01/01/25 20:59 2 tab HS EDDA Administration Tamsulosin HCl 0.4 mg 12/02/24 10:00 12/03/24 08:23 Tamsulosin Hcl 0.4 Mg Cap PO 01/01/25 09:59 0.4 mg QAM EDDA Administration NPO Date Last Intake of Fluids: 12/03/24 Last Intake of Fluids Comment: with am med Date Last Intake of Solids: 12/02/24 Past Medical History Medical History Hx of fracture of nose (2018) set by dr. amos Hx of renal calculi GERD (gastroesophageal reflux disease) intermittent, stable per pt-omeprazole prn White coat syndrome with high blood pressure but without hypertension Chronic low back pain stable per pt since hip replacement Obesity (BMI 30.0-34.9) History of anesthesia reaction - difficulty waking up after hand surgery in and sats low at that time; patient states that was told first attempt was not successful and medication entered body, second attempt was only beneficial on one side-O2 sats dropped needing to be placed in recovery unit; she is unsure if supplemental oxygen was administered - no issues noted with left TKA (12/11/23) under SAB, no issues with cysto/stent placement (01/23/24) under [place] Mixed hyperlipidemia Diabetes mellitus, type II NIDDM Exercise / Class Metabolic Activity II 4-5 Yardwork/Stairs/Walk up hill Past Family History Family History Father Melanoma Cirrhosis with alcoholism Mother Asthma Hypertension COPD (chronic obstructive pulmonary disease) Grandmother (Maternal) Breast cancer Alcoholism Grandmother (Paternal) Arthritis Grandfather (Paternal) Cancer Family/Other History of heart attack Past Surgical History Surgical History Hx of myomectomy (2011) History of open reduction and internal fixation (ORIF) procedure (1997) 1997, right hand>pins removed S/P cystoscopy with ureteral stent placement (2023) x 2 Status post left hip replacement (12/11/23) History of tubal ligation H/O section (~1999) History of endometrial ablation (~07/03/17) Past Anesthesia History No Hx of Anesthesia Complications and No Family Hx of Anesthesia Complications History of PONV No Hx of PONV and No Hx of Motion Sickness Social History Smoking Status: Never smoker Do You Dip or Chew Tobacco: No Hx Alcohol Use: Yes Alcohol type: beer alcohol intake frequency: holidays/special occasions only Hx Substance Use: No substance use type: does not use Review of Systems denies fever/cough/ colds/ chest pain/ SOB/ TO denies TO Physical Exam Vital Signs Last Vital Signs Temp 36.5 C 12/02/24 23:08 Pulse 73 12/02/24 23:08 Resp 16 12/02/24 23:08 BP 154/89 H 12/02/24 23:08 Pulse Ox 96 12/02/24 23:08 O2 Del Method Room Air 12/02/24 23:08 ENMT Mouth: no TMJ abnormality and no dentition abnormality Thyromental Distance: > or= 3.5 Finger Breadths Mallampati Class: II Neck neck extension not limited Respiratory normal respiratory effort; no respiratory distress Auscultation: lungs clear to auscultation bilaterally Cardiovascular Rate/Rhythm: regular rate and regular rhythm Neurologic moves all extremities Psychiatric Orientation: alert and oriented x 3 Testing Laboratory Results 12/03/24 07:21 12/03/24 07:21 Urine Color Yellow 12/02/24 05:57 Urine Appearance Cloudy (Clear) A 12/02/24 05:57 Urine pH 5.5 (4.5-7.5) 12/02/24 05:57 Ur Specific [place] 1.024 (1.000-1.030) 12/02/24 05:57 Urine Protein 1+ (Negative) H 12/02/24 05:57 Urine Glucose (UA) 2+ (Negative) H 12/02/24 05:57 Urine Ketones Trace (Negative) H 12/02/24 05:57 Urine Nitrite Negative (Negative) 12/02/24 05:57 Ur Leukocyte Esterase Trace (Negative) H 12/02/24 05:57 Urine WBC (Auto) 6-10 /hpf (0-5) H 12/02/24 05:57 Urine RBC (Auto) >20 /hpf (0-2) H 12/02/24 05:57 U Hyaline Cast (Auto) 0-2 /lpf (0-2) 12/02/24 05:57 U Epithel Cells (Auto) 0-2 /hpf (0-2) 12/02/24 05:57 Urine Bacteria (Auto) None Seen (None Seen) 12/02/24 05:57 12/03/24 12/03/24 11:46 07:37 POC Glucose 117 H 169 H
[2024-12-03] MEDS ORDERED: ONDANSETRON INJ 2 MG/ML 2 ML VIAL IV PRN (12:21)
[2024-12-03] MEDS ORDERED: HYDROmorphone INJ 1 MG/ML SYRINGE IV PRN (12:21)
[2024-12-03] MEDS ORDERED: ATROPINE SULFATE 0.1 MG/ML 10ML SYR IV PRN (12:21)
[2024-12-03] MEDS ORDERED: KETAMINE HCL 10MG/ML SYR ONE (12:35)
[2024-12-03] MEDS: DIATRIZOATE MEGLUMINE 30% 100ML VIAL INSTIL ONE (12:46)
--- NOTE | 2024-12-03 12:49 | Operative Report ---
PG Post Operative Report Pre & Post Diagnosis Left ureteral calculus Operation Date: 12/03/24 12:25 <No data on this case meets the specified criteria> Left ureteral calculus I identified the patient and participated in the time-out.: Yes Procedure Cystoscopy, left retrograde Polygram with radiographic interpretation, left ureteral stent placement Operation Date: 12/03/24 12:25 <No data on this case meets the specified criteria> Surgeon Puma Santiago MD Staple Fiber Washer None Estimated Blood Loss 0 Findings See Below Mild left hydro, stent in appropriate position Specimens None Drains 6 Martiniquais by 24 cm Coloplast Imajin stent Anesthesia Type MAC Complications none Indications 49-year-old female with a history of nephrolithiasis and a left proximal obstructing ureteral calculus Description of Procedure After informed consent was obtained, the patient was transported operative suite. MAC anesthesia was induced. The patient was placed in dorsal lithotomy position prepped and draped in a sterile fashion. They received preoperative ceftriaxone for antibiotic prophylaxis. An appropriate surgical timeout was performed. A 22 Martiniquais rigid scope was inserted per urethra into the bladder. Browne cystoscopy revealed no stones or lesions. I turned my attention the left ureteral orifice and intubated this with a 5 [place] open-ended catheter. A left retrograde pyelogram was shot which showed mild left hydronephrosis. A sensor wire was advanced into the kidney and confirmed fluoroscopically. A 6 [place] by 24 cm left ureteral stent was deployed with a good proximal coil in the renal pelvis and a good distal coil noted in the bladder. These were confirmed fluoroscopically and under direct visualization, respectively. The bladder was emptied and the scope was removed. This concluded the end of the case. All counts were correct at the end of the case. I was present, scrubbed, and actively participated for the entirety of the procedure. I attest to the content of the Intraoperative Record and any orders documented therein. Any exceptions are noted below.
--- NOTE | 2024-12-03 13:21 | Anesthesiology Progress Note ---
Date of Service December 03, 2024 Anesthesia Post Procedure Vital Signs Vital Signs: Temp Pulse Pulse Resp BP BP Pulse Ox 12/03/24 13:10 36.5 C 81 13 140/82 92 12/03/24 13:00 86 21 150/93 H 99 12/03/24 12:54 36.6 C 90 15 147/91 H 97 12/03/24 12:07 36.9 C 81 18 167/94 H 98 12/02/24 23:08 36.5 C 73 16 154/89 H 96 12/02/24 15:05 36.4 C L 82 19 129/77 99 12/02/24 14:20 36.4 C L 86 18 151/93 H 98 12/02/24 13:27 86 14 146/86 H 98 O2 Del Method O2 Flow Rate 12/03/24 13:10 Room Air 12/03/24 13:00 Oxymask 2 12/03/24 12:54 Oxymask 4 12/03/24 12:07 Room Air 12/02/24 23:08 Room Air 12/02/24 15:05 Room Air 12/02/24 14:20 Room Air 12/02/24 13:27 Room Air Pain Intensity Left Flank: Pain Intensity: 4 Head: Pain Intensity: 9 Transfer of Care Handoff Completed per policy Notes Mental Status: alert / awake / arousable Patient Amnestic to Procedure: Yes Nausea / Vomiting: adequately controlled Pain: adequately controlled Airway Patency, RR, SpO2: stable & adequate BP & HR: stable & adequate Hydration State: stable & adequate Anesthetic Complications: no major complications apparent and Pt Satisfied with anesthetic care
[2024-12-03] MEDS ORDERED: KETOROLAC 30 MG/ML VIAL IV PRN (14:30)
--- NOTE | 2024-12-03 14:52 | Fluoroscopy Report ---
INTRAOPERATIVE FLUOROSCOPIC IMAGES: CLINICAL HISTORY: Cystoscopy. Left retrograde pyelogram and stent insertion. COMPARISON: CT of the abdomen and pelvis December 02, 2024. Fluoroscopy time: 16 seconds. Number of fluoroscopic images: 3 Ka,r: 4.51 mGy. FINDINGS: Fluoroscopy was provided during left retrograde pyelogram and left ureteral stent insertion . The proximal aspect of the ureteral stent projects over the left collecting system. IMPRESSION: Fluoroscopy provided during left retrograde pyelogram and left ureteral stent insertion. Electronically signed by: Ignacio Cardona M.D. 12/03/2024 2:51 PM
[2024-12-03] MEDS: KETOROLAC TROMETHAMINE 15 MG/ML VIAL IV PRN (22:44)
[2024-12-04 07:09] LABS: Hematocrit (blood only) 38.6 % (37.0-47.0); Hemoglobin 13.2 g/dl (12.0-16.0); Mean Corpuscular Hemoglobin 28.9 pg (25.0-34.0); Mean Corpuscular Volume 84.6 fL (80.0-100.0); Platelet Count 187 K/uL (130-400); RDW Standard Deviation 39.3 fL (36.4-46.3); Red Blood Count 4.56 M/uL (4.20-5.40); White Blood Count 6.68 K/ul (4.8-10.8)
[2024-12-04 07:26] VITALS: BP 145/91; PULSE 88; RESP 16; TEMP 98.4; O2SAT 97
[2024-12-04 07:31] LABS: Anion Gap 6.0 (3-11); Blood Urea Nitrogen 12.0 mg/dl (6-23); Calcium 9.4 mg/dl (8.6-10.3); Carbon Dioxide 29.0 mmol/L (21-32); Chloride 105.0 mmol/L (98-107); Creatinine Clr Calc Pharmacy 119.2 ml/min; Glucose 135.0 mg/dl (70-99(Fasting)); Potassium 3.9 mmol/L (3.5-5.1); Sodium 140.0 mmol/L (136-145)
--- NOTE | 2024-12-04 10:00 | Urology Progress Note ---
Date of Service December 04, 2024 Assessment & Plan (1) Left ureteral calculus: Plan: - Pt POD#1 s/p cystoscopy and left ureteral stent placement - Doing well, progressing as expected - Afebrile, hemodynamically stable - Lab work reviewed -no leukocytosis, creatinine within normal limits - Urine culture with lactobacillus - Tolerating left ureteral stent with minimal bother - Okay to d/c from perspective when medically stable - Expected clinical course reviewed, all questions answered - Will arrange outpatient follow-up with our service to set up definitive stone treatment - will sign off, please contact our service with any additional questions or concerns Admission and Anticipated Discharge Date Admission Date: December 03, 2024 Subjective Patient seen and examined at bedside. She is awake and sitting up in bedside chair. No acute issues overnight. Tolerating stent. No concerns today. Feels ready to go home. Review of Systems Constitutional: as per Subjective / HPI Genitourinary: as per Subjective / HPI Physical Exam Constitutional: well developed and well nourished; no acute distress Respiratory: normal respiratory effort; no respiratory distress and no labored breathing Gastrointestinal (Abdomen): Inspection/Auscultation: abdomen normal to inspection Musculoskeletal: Head/Neck/Chest: normocephalic Neurologic: moves all extremities and awake Psychiatric: Orientation: alert and oriented x 3 Results & Data Vital Signs (Past 12 Hours) Vital Signs Temp Pulse Resp BP Pulse Ox O2 Del Method 12/04/24 07:24 36.9 C 88 16 145/91 H 97 Room Air 12/04/24 04:55 36.4 C L 80 18 149/83 H 95 Room Air 12/04/24 00:05 36.7 C 76 16 138/76 97 Room Air PG Care Time/CCT Total # of Minutes Spent Total Time Spent with Patient: Total time spent is greater than 50% in coordination of care (as documented) at patient's floor/unit and/or counseling patient: Coding Level of Care Code 47794 SUB INP/OBS CARE 05/03MIN Diagnoses Left ureteral calculus N20.1
--- NOTE | 2024-12-04 10:43 | Discharge Summary ---
Discharge Summary Date of Service December 04, 2024 Principal Dx & Hospital Course #1 = Principal Diagnosis (1) Left ureteral calculus: (2) Hydronephrosis with obstructing calculus: (3) S/P ureteral stent placement: (4) Abnormal urinalysis: (5) Uncontrolled type 2 diabetes mellitus with hyperglycemia: (6) Mixed hyperlipidemia: Plan 49 year old female with PMH significant for DMII, hyperlipidemia, and history of bilateral obstructing renal calculi s/p bilateral ureteroscopy with stent placement for stone treatment on 02/04/24 [stone composition: 95% calcium oxalate dihydrate/5% calcium oxalate monohydrate; stents removed on 02/08/24] with residual mild L hydronephrosis who presented to the ED on 12/02/2024 with complaint of L-sided flank pain and was admitted for an obstructing left renal calculus. Obstructing L renal calculus with mild L hydronephrosis s/p ureteral stent placement Patient presented with L flank pain and nausea CTAP revealed 5mm obstructing L calculus with mild L hydronephrosis and hydroureter (new finding), nonobstructing 4mm R calculus in middle calyx (stable) Underwent cystoscopy and left ureteral stent placement on 12/03/[address] Santiago Will follow up with Urology outpatient for stent removal and definitive stone treatment Discharged to home with Flomax and Toradol for pain control Abnormal urinalysis Admitting UA revealed trace leuk esterase and WBCs Urine culture resulted lactobacillus Likely contamination and not UTI but Urology wanted patient to complete course of antibiotics Discharged on cefdinir 300mg bid x5 days Incidental CTAP finding CTAP revealed lobulated contour of uterus - possibility of uterine fibroid - USG correlation suggested DMII A1C 8.1% as of October 2024 Continue home regimen including metformin and Mounjaro Hold home regimen including metformin, Mounjaro HLD Continue statin Patient seen in collaboration with Dr Gates. Please see addendum. Notes For Next Care Provider 49 year old female with significant PMH who was admitted at [facility] from 12/02- 12/04/2024 with an obstructing left renal calculus with mild hydronephrosis who is s/p cystoscopy and ureteral stent placement. Patient was discharged to home on flomax, toradol, and a course of cefdinir. Will need outpatient follow up with Urology for stent removal and stone treatment. Recommend pelvic US for incidental finding of possible uterine fibroid. Medication Changes From Visit Flomax 0.4mg PO daily Toradol 10mg PO PRN severe pain Cefdinir 300mg PO bid x5 days Admission HPI Per Admitting Provider Pt is a 49y/o F with PMHx significant for DMII [Hgb A1c 8.1% as of 10/2024], history of bilateral obstructing renal calculi s/p bilateral ureteroscopy with stent placement for stone treatment on 02/04/24 [stone composition: 95% calcium oxalate dihydrate/5% calcium oxalate monohydrate; stents removed on 02/08/24] with residual mild L hydronephrosis, history of L hip replacement and HLD who presented to the ED with complaint of L-sided flank pain. History obtained from the pt, discussion with ED provider and associated chart review. Endorses acute onset of L-sided flank pain which began overnight around 2AM. Sudden pain awoke her from sleep. Did experience some nausea, chills and sweats with this as well. No recorded fevers. Admits to taking a dose of Zofran at home which seemed to help the nausea but the pain remained uncontrollable, which ultimately prompted her to come to the ED for evaluation. Has a history of kidney stones previously requiring stent placement. Denies any dysuria, hematuria or increased urinary frequency. In ED, pt states pain has significantly improved with IV morphine. Nausea also subsided with IV Zofran. 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 No prior smoking history. Admission Exam Per Admitting Provider General: WD/WN, NAD, sitting up in bed, A&Ox3, pleasant, conversing appropriately HEENT: Normocephalic, atraumatic, somewhat dry mucous membranes Respiratory: Normal respiratory effort, CTAB Cardiovascular: RRR, no BLE edema Abdomen/GI: Active bowel sounds, soft, nontender to palpation in all quadrants Extremities/MSK: No cyanosis or clubbing, extremities motor strength intact, moves all extremities Neurologic: No overt focal deficits, CN's II-XI not formally tested but appear grossly intact bilaterally Discharge Exam General/Psych: WD/WN, sitting up in chair, NAD, conversing easily Head: normocephalic, atraumatic Eyes: normal inspection, PERRL, conjunctivae pink ENT: external ear and nose normal, oropharynx normal Neck: normal visual inspection, trachea midline Respiratory: normal respiratory effort, lungs clear to auscultation, no wheeze/rales/rhonchi, no accessory muscle use Cardiovascular: regular rate and rhythm, no murmur/rub/gallop, no JVD Extremities: no cyanosis or clubbing, normal peripheral pulses, no BLE edema Abdomen/GI: normal bowel sounds, soft, nontender Neurologic/MSK: A+Ox3, motor strength 5/5, moves all extremities Skin: no rashes, normal color, warm and dry Updated Medication List Medication Instructions Recorded Confirmed Type metformin 500 mg tablet 1,000 mg PO BID 05/01/22 12/02/24 History atorvastatin 10 mg tablet 10 mg PO QPM 05/10/22 12/02/24 History lancets 33 gauge (Mission AirTouch Delica #100 ea 05/12/22 12/02/24 Rx Plus Lancet) blood sugar diagnostic ([employer]ission AirTouch #50 ea 05/15/22 12/02/24 Rx Verio test strips) [employer]Touch Verio Reflect Start #1 ea 05/18/22 12/02/24 Rx (blood-glucose meter) acetaminophen 500 mg tablet 1,000 mg PO TID PRN pain 01/22/24 12/02/24 History (Tylenol Extra Strength) sennosides 8.6 mg tablet (Senokot) 8.6 mg PO HS PRN prevent 01/22/24 12/02/24 History constipation ondansetron 4 mg disintegrating 4 mg PO Q8H PRN nausea 01/28/24 12/02/24 History tablet blood-glucose sensor (FreeStyle #2 ea 11/11/24 12/02/24 Rx Natalia 3 Plus Sensor device) tirzepatide 7.5 mg/0.5 mL 7.5 mg (0.5 mL) subcut Q7D #2 mL 11/11/24 12/02/24 Rx subcutaneous pen injector cyclobenzaprine 10 mg tablet 10 mg PO HS PRN Pain 12/02/24 12/02/24 History diphenhydramine 25 1 tab PO HS PRN Sleep/Pain 12/02/24 12/02/24 History mg-acetaminophen 500 mg tablet (Tylenol PM Extra Strength) cefdinir 300 mg capsule 300 mg PO BID 5 days #10 caps 12/04/24 Rx ketorolac 10 mg tablet 10 mg PO Q8H #6 tabs 12/04/24 Rx tamsulosin 0.4 mg capsule 0.4 mg PO QAM #20 caps 12/04/24 Rx Hospital Stay Data Consultations 12/02/24 07:19 ED Decision to Admit Stat 12/02/24 09:54 Consult Urology Routine Procedures Performed Operation Date: 12/03/24 12:25 Actual Procedures p Cystoscopy Left Stent Placement(Left) - Puma Santiago MD Diagnostic Imagining Performed Abdomen/Pelvis CT 12/02/24 05:03 EXAM: CT abd pelvis wo con CLINICAL HISTORY: left side flank pain, hx stones TECHNIQUE: Contiguous axial images were obtained from the level of the diaphragm to the pubic symphysis without intravenous or oral contrast. Coronal and sagittal reconstructions were likewise performed and indicated to increase the sensitivity for detecting clinically relevant pathology. CT scan was performed according to ALARA (as low as reasonable achievable). COMPARISON: 01/22/2024 19:18:48 NURSING CARE PARTNER FINDINGS: The visualized lung bases are clear. Evaluation of the abdominal and pelvic visceral organs is limited without intravenous contrast. The unenhanced liver, spleen, pancreas, and adrenal glands are grossly unremarkable. The gallbladder is present. The kidneys are normal in size and attenuation without obvious calcification. Right kidney show nonobstructing calculus of size 4mm in middle calyx. Left kidney shows mild hydronephrosis and hydroureter up to an obstructing calculus of size 5 mm involving left upper ureter (about 35 mm distal to pelviureteric junction.) The urinary bladder is normal in contour. Uterus shows lobulated contour- possibility of uterine fibroid - USG correlation suggested. No adenopathy or fluid collections are seen. No evidence of focal or diffuse bowel wall thickening or evidence of bowel obstruction is seen. The appendix is visualized in the right lower quadrant and appears within normal limits. The aorta is normal in caliber. No aggressive appearing osseous lesions are identified. IMPRESSION: 1. Right kidney show nonobstructing calculus of size 4mm in middle calyx.-stable. 2. Left kidney shows mild hydronephrosis and hydroureter up to an obstructing calculus of size 5 mm involving left upper ureter (about 35 mm distal to pelviureteric junction.)-new finding. ( prior pelviureteric junction calculus and left nephrolithiasis is not seen in current study) 3. Right ureterolithiasis also not seen in current study 4. Uterus shows lobulated contour- possibility of uterine fibroid - USG correlation suggested.-new finding. Electronically signed by Khadar Dolan 12-02-2024 06:17 AM Retrograde Pyelogram 12/03/24 10:30 INTRAOPERATIVE FLUOROSCOPIC IMAGES: CLINICAL HISTORY: Cystoscopy. Left retrograde pyelogram and stent insertion. COMPARISON: CT of the abdomen and pelvis December 02, 2024. Fluoroscopy time: 16 seconds. Number of fluoroscopic images: 3 Ka,r: 4.51 mGy. FINDINGS: Fluoroscopy was provided during left retrograde pyelogram and left ureteral stent insertion. The proximal aspect of the ureteral stent projects over the left collecting system. IMPRESSION: Fluoroscopy provided during left retrograde pyelogram and left ureteral stent insertion. Electronically signed by: Ignacio Cardona M.D. 12/03/2024 2:51 PM Pending Results Patient Have Any Pending Studies at Discharge: No Discharge Instructions Given to Patient (Per Discharging Provider) You presented to the hospital with left flank pain and were found to have an obstructing kidney stone. You underwent cystoscopy, which is a camera that looks at your bladder and urethra, and had a stent placed in your left ureter by Dr Santiago. You will need to follow up with Urology outpatient in a few weeks to get the stent removed and for kidney stone treatment. You are being discharged to home on three new medications as listed below. MEDICATION CHANGES: Tamsulosin (Flomax) 0.4mg by mouth daily to relieve discomfort from the stent Ketorolac (Toradol) 10mg by mouth as needed for severe pain Cefdinir 300mg by mouth twice daily for 5 days - take with food to prevent stomach upset SUMMARY OF TEST RESULTS: CT abdomen and pelvis revealed 4mm non obstructing stone in right kidney and 5mm obstructing stone in left ureter with mild hydronephrosis of left kidney CT abdomen and pelvis also showed possible uterine fibroid - please follow up with your PCP about further evaluation for this PENDING TEST RESULTS: None RECOMMENDATIONS FOR FOLLOW-UP: Please follow up with your PCP as scheduled on 12/12/2024 at 11:30am to discuss this hospitalization and your CT scan findings Please follow up with Urology for stent removal OTHER INSTRUCTIONS: Seek medical attention if you have: * temperature above 101 * chest pain or trouble breathing * abdominal pain, nausea, vomiting * diarrhea, dark stools or bloody stools * any unanswered questions or concerns Call 911 if symptoms are severe. It has been a pleasure taking care of you. Please take care of yourself. If you have any questions regarding your recent hospitalization please contact [facility] and request [email or web address] Chenist @ [phone]. Total Time Total Time Spent Total Time Spent (In Minutes): I spent a total of 35 minutes coordinating, documenting and providing care for this patient excluding time spent in the performance of separately billed services or time spent by another provider/QHP. Supervising Physician Co-Signing Physician Notes Patient seen and examined Agree with findings and plans as detailed by Tona MARTEL
== END 2024-12-04 10:59 | disposition home or self-care (01) | DRG 661 ==
LOC: EDINP 04:56 → ED 04:56 → SUATTDRO 07:33 → 3N 09:25